=== PATIENT | female | born 1980 | race Caucasian/White ===

== ENCOUNTER 2016-10-11 04:01 | Emergency (ER) | payer MEDICAID ==
[2016-10-11] MEDS ORDERED: CEPHALEXIN 250 MG CAPSULE PO STA (04:36)
[2016-10-11] MEDS ORDERED: HYDROcod/ACET 5/325 Prepack 6 PO ONE ×2 (04:36→04:43)
[2016-10-11] MEDS ORDERED: DEXAMETHASONE 10 MG/ML VIAL PO STA (04:36)
[2016-10-11] MEDS ORDERED: ACETAMINOPHEN 325 MG TABLET PO STA (04:36)
[2016-10-11] MEDS ORDERED: CEPHALEXIN 250 MG Prepack 8 PO ONE ×2 (04:36→04:43)
[2016-10-11] MEDS ORDERED: CEPHALEXIN 250 MG CAPSULE PO ONE (04:43)
[2016-10-11] MEDS ORDERED: DEXAMETHASONE 10 MG/ML VIAL ONE (04:43)
[2016-10-11] MEDS ORDERED: ACETAMINOPHEN 325 MG TABLET PO ONE (04:44)
== END 2016-10-11 04:55 | disposition home or self-care (01) ==
DX: J02.0 Streptococcal pharyngitis (principal)
CPT/HCPCS: 99282; 99283; A9270

== ENCOUNTER 2016-10-21 | Emergency (ER) | payer MEDICAID | END 2016-10-21 17:27 | disposition home or self-care (01) ==

== ENCOUNTER 2016-11-10 | Outpatient (CLI) | payer MEDICAID | END 2016-11-10 22:31 | disposition EMS.NT ==

== ENCOUNTER 2016-11-11 14:34 | Outpatient (CLI) | payer MEDICAID | END 2016-11-11 14:35 | disposition home or self-care (01) | DX: M50.321 Other cervical disc degeneration at C4-C5 level (principal); R06.2 Wheezing ==

== ENCOUNTER 2017-03-01 09:13 | Outpatient (CLI) | payer MEDICAID | END 2017-03-01 09:14 | disposition home or self-care (01) | DX: Z79.899 Other long term (current) drug therapy (principal) ==

== ENCOUNTER 2017-03-23 15:00 | Outpatient (CLI) | payer MEDICAID ==
[2017-03-26 14:36] LABS: ANA SCREEN NEGATIVE (NEGATIVE)
== END 2017-03-23 15:01 | disposition home or self-care (01) ==
LOC: LAB.N 15:00
PROVIDERS: ATTEND Nurse Practitioner Gerontology
DX: M25.50 Pain in unspecified joint (principal)
CPT/HCPCS: 36415; 85651; 86038; 86140; 86430

== ENCOUNTER 2017-05-13 10:45 | Outpatient (CLI) | payer MEDICAID | END 2017-05-13 10:46 | disposition home or self-care (01) | LOC: LAB.N 10:45 | PROVIDERS: ATTEND Nurse Practitioner Gerontology | DX: L40.9 Psoriasis, unspecified (principal) | CPT/HCPCS: 36415; 85651; 86140 ==

== ENCOUNTER 2017-05-25 10:39 | Day surgery (SDC) | payer MEDICAID ==
[2017-05-25] MEDS ORDERED: ceFAZolin 2 GM/50 ML 50 ML IV ONE (10:54)
[2017-05-25] MEDS ORDERED: MIDAZOLAM 2 MG/2 ML VIAL IVP ONE (11:00)
[2017-05-25] MEDS ORDERED: fentaNYL 100 MCG/2 ML VIAL IVP ONE (11:00)
[2017-05-25] MEDS ORDERED: LACTATED RINGERS 1,000 ML IV ONE (11:17)
[2017-05-25 11:20] LABS: HCG UR QUAL NEGATIVE
[2017-05-25] MEDS ORDERED: LIDOCAINE MPF 1%-EPI 1:200000 30 ML VIAL SUBQ ONE ×2 (11:36)
[2017-05-25] MEDS ORDERED: BUPIVACAINE 0.5% PF 30 ML VIAL SUBQ ONE ×2 (11:36)
[2017-05-25 12:08] VITALS: BP 129/87
--- NOTE | 2017-05-25 12:13 | OPERATIVE REPORT ---
DATE OF SURGERY: 05/25/2017 00:00:00 PREOPERATIVE DIAGNOSIS: Right hand carpal tunnel syndrome. POSTOPERATIVE DIAGNOSIS: Right hand carpal tunnel syndrome. NAME OF PROCEDURE: Right carpal tunnel release. SURGEON: Luis Tena MD ANESTHESIA: Local MAC. INDICATIONS FOR SURGERY: The patient is a 36-year-old female with chronic carpal tunnel syndrome in t he right hand, with positive nerve test and nonresponse to conservative treatment rendered by Dr. Miguel ruggiero. The patient had been scheduled for surgery yesterday with Dr. Abdul, and this was unable to be accomplished and he asked me if I could care for her today, performing her carpal tunnel release, and the patient consented and I agreed as well. FINDINGS AT SURGERY: The patient's hand is normal-appearing. Her carpal tunnel was quite tight and th ere was fusiform constriction of her median nerve. DESCRIPTION OF OPERATIVE PROCEDURE: The patient was taken to the operating room, given a MAC anesthet ic. Her hand was sterilely prepped and draped in standard fashion. The carpal tunnel area was infiltr ated with lidocaine with epinephrine and Marcaine. After a period of action for the epinephrine, an incision was made in the palm in line with the 3rd w ebspace, taken through skin and subcutaneous tissue and then dividing directly the transverse carpal ligament with the release ending distally at the superficial palmar arch and ending proximally at the distal wrist flexion crease. The wound was irrigated thoroughly. Closure was with interrupted 4-0 nylon in the skin and sterile dr essings were applied. The the patient was taken to the recovery room in stable condition. ESTIMATED BLOOD LOSS: Minimal. COMPLICATIONS: None. SPONGE AND NEEDLE COUNTS: Correct. JOB #: [id number] EXT JOB #:[id number]
== END 2017-05-25 10:40 | disposition home or self-care (01) ==
LOC: SDS 10:39
PROVIDERS: ATTEND Orthopaedic Surgery
PROC: 01N50ZZ Release Median Nerve, Open Approach (ICD-10-PCS; principal; 2017-05-25 11:45)
DX: G56.01 Carpal tunnel syndrome, right upper limb (principal); J45.909 Unspecified asthma, uncomplicated; E11.9 Type 2 diabetes mellitus without complications; Z79.84 Long term (current) use of oral hypoglycemic drugs; F43.10 Post-traumatic stress disorder, unspecified; F41.0 Panic disorder [episodic paroxysmal anxiety]; F60.3 Borderline personality disorder; Z91.5 Personal history of self-harm; Z88.0 Allergy status to penicillin; K21.9 Gastro-esophageal reflux disease without esophagitis; J44.9 Chronic obstructive pulmonary disease, unspecified; F17.210 Nicotine dependence, cigarettes, uncomplicated; E66.9 Obesity, unspecified; Z68.41 Body mass index [BMI] 40.0-44.9, adult; F31.9 Bipolar disorder, unspecified; M06.9 Rheumatoid arthritis, unspecified
CPT/HCPCS: 64721; 81025; J0690; J7120

== ENCOUNTER 2017-06-29 19:30 | Emergency (ER) | payer MEDICAID ==
[2017-06-29 20:07] LABS: BASOPHILS % (AUTO) 0.2 %; HCT - HEMATOCRIT 40.4 % (37.0-47.0); HGB - HEMOGLOBIN 14.5 g/dL (12.0-16.0); LYMPHOCYTES # (AUTO) 1.6 10^3/uL (1.5-3.5); LYMPHOCYTES % (AUTO) 7.7 %; MEAN CORPUSCULAR HEMOGLOBIN 30.7 pg (27.0-31.0); MEAN CORPUSCULAR HGB CONC 35.9 g/dL (32.0-36.0); MEAN CORPUSCULAR VOLUME 85.7 fL (81.0-99.0); MEAN PLATELET VOLUME 8.1 fL (7.9-10.8); MONOCYTES # (AUTO) 0.6 10^3/uL (0.0-1.0); MONOCYTES % (AUTO) 3.1 %; NEUTROPHILS # (AUTO) 17.9 10^3/uL (1.5-6.6); RED BLOOD COUNT 4.71 10^6/uL (4.20-5.40); RED CELL DISTRIBUTION WIDTH 13.5 % (12.0-15.0); UNCORRECTED WHITE BLOOD COUNT 20.1 x10^3/uL; WHITE BLOOD COUNT 20.1 x10^3/uL (4.8-10.8)
[2017-06-29 20:20] LABS: ALBUMIN/GLOBULIN RATIO 1.1 (1.0-2.2); BILIRUBIN,TOTAL 0.6 mg/dL (0.2-1.0); CALCIUM 9.2 mg/dL (8.5-10.3); CREATININE 0.7 mg/dL (0.4-1.0); TOTAL PROTEIN 7.7 g/dL (6.7-8.2)
[2017-06-29 20:30] LABS: PLATELET MORPHOLOGY NORMAL APPEARANCE (NORMAL)
[2017-06-29 20:31] LABS: PLATELET ESTIMATE, MANUAL NORMAL (130-450,000) (NORMAL); WBC MORPHOLOGY (MULTIPLE) 2+ HYPERSEG NEUT (NORMAL)
[2017-06-29] MEDS ORDERED: INSULIN REGULAR HUMAN 100 UNIT/1 ML 10 ML MDV IVP STA (21:28)
[2017-06-29] MEDS ORDERED: ONDANSETRON 4 MG/2 ML VIAL IVP STA (21:28)
[2017-06-29] MEDS ORDERED: SODIUM CHLORIDE 0.9% 1,000 ML IV ONE (21:28)
[2017-06-29] MEDS ORDERED: cefTRIAXone 1 GM in SODIUM CHLORIDE 0.9% MINIBAG 100 ML IV STA (21:28)
--- NOTE | 2017-06-29 21:33 | ED Physician Documentation ---
PD HPI NVD - Stated complaint Stated Complaint: NAUSEA,ELEV BLOOD SUGAR - Chief complaint Chief Complaint: General - History obtained from History obtained from: Patient, Family - History of Present Illness Timing - onset: Yesterday Timing - duration: Days (1) Timing - details: Gradual onset, Still present Associated symptoms: No: Fever Contributing factors: Other (had steroid injection in left knee yesterday) Improved by: Vomiting Similar symptoms before: Has not had sx before Recently seen: Clinic - Additonal information Additional information: 36-year-old diabetic female had an injection with steroid into her left knee [facility]. Today she has experienced elevated blood sugar nausea and she has not been able to eat because her sugars continue to rise. She has had excessive urination. She does not have any pain in her left knee now. She has been having a cough congestion and now has sinus tenderness bilaterally as well. She has been on some azithromycin for otitis and this did not help. She is allergic to penicillin. She has taken Keflex before. Review of Systems Constitutional: reports: Fatigue. denies: Fever Eyes: denies: Decreased vision Ears: reports: Ear pain Nose: reports: Rhinorrhea / runny nose, Congestion, Sinus pressure / pain Throat: denies: Sore throat Cardiac: denies: Chest pain / pressure, Palpitations Respiratory: reports: Cough, Wheezing. denies: Dyspnea GI: reports: Nausea. denies: Abdominal Pain, Vomiting : denies: Dysuria, Frequency Skin: denies: Rash Musculoskeletal: denies: Neck pain, Back pain, Extremity pain, Joint pain, Joint swelling Neurologic: denies: Generalized weakness, Focal weakness, Numbness PD PAST MEDICAL HISTORY - Past Medical History Cardiovascular: None Respiratory: Asthma Neuro: None Endocrine/Autoimmune: None, Type 2 diabetes - Past Surgical History Past Surgical History: No - Present Medications Home Medications: Ambulatory Orders Medication Instructions Recorded Confirmed Albuterol 2.5 mg INH Q4H PRN 10/11/16 05/25/17 Acetaminophen [Tylenol] 650 mg PO Q6H PRN 05/21/17 05/25/17 Clobetasol Propionate/Emoll 15 gm TP DAILY PRN 05/21/17 05/25/17 [Clobetasol Emollient 0.05% Crm] Fluocinolone/Shower Cap 118.28 ml TP DAILY PRN 05/21/17 05/21/17 [Fluocinolone 0.01% Scalp Oil] Ibuprofen [Advil] 200 mg PO Q6HR PRN 05/21/17 05/21/17 Lurasidone HCl [Latuda] 60 mg PO DAILY 05/21/17 05/25/17 Medroxyprogesterone Acetate 104 mg SQ ONCE 05/21/17 05/21/17 [Depo-Subq Provera 104] Metformin HCl 1,000 mg PO BID 05/21/17 05/25/17 Zolpidem [Ambien] 5 mg PO HS 05/21/17 05/25/17 Cefuroxime Axetil [Ceftin] 500 mg PO Q12H #20 tablet 06/29/17 - Allergies Allergies/Adverse Reactions: Allergies Allergy/AdvReac Type Severity Reaction Status Date / Time Penicillins Allergy Hives Verified 10/11/16 04:12 - Social History Does the pt smoke?: Yes Smoking Status: Current every day smoker Does the pt drink ETOH?: No Does the pt have substance abuse?: No - Immunizations Immunizations are current?: Yes - POLST Patient has POLST: No PD ED PE NORMAL - Vitals Vital signs reviewed: Yes (Hypertensive) - General General: Alert and oriented X 3, No acute distress, Well developed/nourished - HEENT HEENT: Atraumatic, PERRL, EOMI, Other (There is erythema bilaterally to the TMs with flattening of the landmarks.) - Neck Neck: Supple, no meningeal sign, No bony TTP - Cardiac Cardiac: RRR, No murmur - Respiratory Respiratory: No respiratory distress, Other (Wheezes and rhonchi scattered.) - Abdomen Abdomen: Soft, Non tender - Back Back: No CVA TTP, No spinal TTP - Derm Derm: Normal color, Warm and dry, No rash - Extremities Extremities: No deformity, No tenderness to palpate, Normal ROM s pain, No edema , No calf tenderness / cord - Neuro Neuro: Alert and oriented X 3, No motor deficit, No sensory deficit, Normal speech - Psych Psych: Normal mood, Normal affect Results - Vitals Vitals: Vital Signs - 24 hr 06/29/17 06/29/17 19:39 23:19 Temperature 36.7 C 36.4 C L Heart Rate 96 92 Respiratory 17 20 Rate Blood Pressure 134/82 H 134/78 H O2 Saturation 96 95 Oxygen O2 Source Room air - Labs Labs: Laboratory Tests 06/29/17 06/29/17 06/29/17 19:44 20:02 20:02 WBC 20.1 H RBC 4.71 Hgb 14.5 Hct 40.4 MCV 85.7 MCH 30.7 MCHC 35.9 RDW 13.5 Plt Count 322 MPV 8.1 Neut # 17.9 H Lymph # 1.6 Grant # 0.6 Eos # 0.0 Baso # 0.0 Absolute Nucleated RBC 0.01 Nucleated RBCs 0.0 WBC Morphology 2+ HYPERSEG NEUT Platelet Estimate NORMAL (130-450,000) Platelet Morphology NORMAL APPEARANCE RBC Morph Micro Appear NORMAL APPEARANCE Sodium 136 Potassium 4.0 Chloride 105 Carbon Dioxide 24 Anion Gap 7.0 BUN 12 Creatinine 0.7 Estimated GFR (MDRD) 95 Glucose 252 H POC Whole Bld Glucose 252 H Calcium 9.2 Total Bilirubin 0.6 AST 15 ALT 20 Alkaline Phosphatase 66 Total Protein 7.7 Albumin 4.0 Globulin 3.7 Albumin/Globulin Ratio 1.1 Lipase 27 Urine Color Urine Clarity Urine pH Ur Specific [place] Urine Protein Urine Glucose (UA) Urine Ketones Urine Occult Blood Urine Nitrite Urine Bilirubin Urine Urobilinogen Ur Leukocyte Esterase Ur Microscopic Review Urine Culture Comments 06/29/17 06/29/17 06/29/17 21:36 22:02 23:14 WBC RBC Hgb Hct MCV MCH MCHC RDW Plt Count MPV Neut # Lymph # Grant # Eos # Baso # Absolute Nucleated RBC Nucleated RBCs WBC Morphology Platelet Estimate Platelet Morphology RBC Morph Micro Appear Sodium Potassium Chloride Carbon Dioxide Anion Gap BUN Creatinine Estimated GFR (MDRD) Glucose POC Whole Bld Glucose 183 H 146 H Calcium Total Bilirubin AST ALT Alkaline Phosphatase Total Protein Albumin Globulin Albumin/Globulin Ratio Lipase Urine Color YELLOW Urine Clarity CLEAR Urine pH 6.0 Ur Specific [place] >=1.030 H Urine Protein NEGATIVE Urine Glucose (UA) 250 H Urine Ketones NEGATIVE Urine Occult Blood NEGATIVE Urine Nitrite NEGATIVE Urine Bilirubin NEGATIVE Urine Urobilinogen 0.2 (NORMAL) Ur Leukocyte Esterase NEGATIVE Ur Microscopic Review NOT INDICATED Urine Culture Comments NOT INDICATED Procedures - IVC sono (time) 2129 Bedside IVC sono: IVC measures (cm) (1.53), IVC collapsed c insp (cm) (complete) , Dehydration PD MEDICAL DECISION MAKING - ED course Complexity details: reviewed old records, reviewed results, re-evaluated patient , considered differential, d/w patient, d/w family ED course: 36-year-old diabetic female has had a steroid injection in her knee and now has hyperglycemia and some nausea. In addition she appears to have otitis that is been chronic and she has some wheezing. Her white blood cell count was 20,000 and for this reason I have added chest x-ray into her workup. On interrogation of the inferior vena cava the patient does appear to be dehydrated. We will give her some IV saline and insulin to bring her glucose down under 200. She is improved with a glucose of 146. She is treated further with decadron and rocephin Departure - Departure Disposition: Home, Self Care Clinical Impression: Dehydration Otitis media Qualifiers: Otitis media type: suppurative Chronicity: acute Laterality: bilateral Recurrence: not specified as recurrent Spontaneous tympanic membrane rupture: without spontaneous rupture Qualified Code(s): H66.003 - Acute suppurative otitis media without spontaneous rupture of ear drum, bilateral Hyperglycemia due to type 2 diabetes mellitus Qualifiers: Diabetes mellitus jail insulin use: without technician terminal and repeater use Qualified Code(s ): E11.65 - Type 2 diabetes mellitus with hyperglycemia Condition: Stable Instructions: ED Otitis Media Acute Adult, ED Dehydration, ED Hyperglycemia Diabetic Follow-Up: Elli Wong, [employer] [Primary Care Provider] - Prescriptions: Cefuroxime Axetil [Ceftin] 500 mg PO Q12H #20 tablet Discharge Date/Time: 06/29/17 23:19
[2017-06-29 21:48] LABS: BILIRUBIN,URINE NEGATIVE (NEGATIVE)
[2017-06-29 21:51] LABS: UA CHARGE (STRIP ONLY) YES; UR CULTURE IF IND NOT INDICATED
[2017-06-29] MEDS ORDERED: ONDANSETRON 4 MG/2 ML VIAL ONE ×2 (21:51→22:09)
[2017-06-29] MEDS ORDERED: cefTRIAXone 1 GM VIAL ONE ×2 (21:51→22:09)
[2017-06-29] MEDS ORDERED: INSULIN REGULAR HUMAN 100 UNIT/1 ML 10 ML MDV ONE ×2 (21:51→22:10)
--- NOTE | 2017-06-29 22:18 | XRAY Preliminary Report ---
Exam: XR Chest 2 View PA/LAT IMPRESSION: No acute pulmonary process. [facility] SITE ID: [id number]
--- NOTE | 2017-06-29 22:55 | XRAY Report ---
EXAM: CHEST RADIOGRAPHY EXAM DATE: 06/29/2017 09:58 PM. CLINICAL HISTORY: Wheezes and rhonchi. COMPARISON: None. TECHNIQUE: 2 views. FINDINGS: Lungs/Pleura: No consolidation, effusions or pneumothorax. Possible small lateral right mid lung gran uloma. Mediastinum: Heart and mediastinal contours are unremarkable. Other: None. IMPRESSION: No acute pulmonary process. [facility] Referring Provider Line: [phone] SITE ID: [id number]
[2017-06-29 23:21] VITALS: BP 134/78
== END 2017-06-29 23:19 | disposition home or self-care (01) ==
LOC: ED 19:30
DX: E86.0 Dehydration (principal); H66.003 Acute suppurative otitis media without spontaneous rupture of ear drum, bilateral; E11.65 Type 2 diabetes mellitus with hyperglycemia; Z79.84 Long term (current) use of oral hypoglycemic drugs; J45.909 Unspecified asthma, uncomplicated; F17.200 Nicotine dependence, unspecified, uncomplicated
CPT/HCPCS: 36415; 71020; 80053; 81003; 83690; 85025; 96374; 96375; 99283; J1815; 81001; 87086

== ENCOUNTER 2017-07-12 08:00 | Outpatient (CLI) | payer MEDICAID | END 2017-07-12 08:01 | disposition home or self-care (01) | LOC: LAB.N 08:00 | PROVIDERS: ATTEND Nurse Practitioner Gerontology | DX: R19.7 Diarrhea, unspecified (principal) | CPT/HCPCS: 87493 ==

== ENCOUNTER 2017-07-12 15:27 | Outpatient (CLI) | payer MEDICAID | END 2017-07-12 15:28 | disposition home or self-care (01) | LOC: SC 15:27 | PROVIDERS: ATTEND Internal Medicine Pulmonary Disease | DX: G47.30 Sleep apnea, unspecified (principal); G47.8 Other sleep disorders; R06.83 Snoring; G47.10 Hypersomnia, unspecified | CPT/HCPCS: 99203; 99212 ==

== ENCOUNTER 2017-07-20 08:57 | Day surgery (SDC) | payer MEDICAID ==
[2017-07-20] MEDS ORDERED: LACTATED RINGERS 1,000 ML IV ONE (09:14)
[2017-07-20 09:34] LABS: HCG UR QUAL NEGATIVE
[2017-07-20] MEDS ORDERED: LIDOCAINE 1% 50 ML MDV SUBQ ONE ×2 (12:14)
[2017-07-20] MEDS ORDERED: BUPIVACAINE 0.25%-EPI 1:200000 PF 30 ML VIAL SUBQ ONE ×2 (12:14)
[2017-07-20] MEDS ORDERED: fentaNYL 100 MCG/2 ML VIAL IVP ONE (12:30)
[2017-07-20 13:14] VITALS: BP 126/72
--- NOTE | 2017-07-20 13:18 | OPERATIVE REPORT ---
DATE OF SURGERY: 07/20/2017 00:00:00 PREOPERATIVE DIAGNOSIS: Left carpal tunnel syndrome. POSTOPERATIVE DIAGNOSIS: Left carpal tunnel syndrome. NAME OF PROCEDURE: Left carpal tunnel release. SURGEON: Luis Tena MD ANESTHESIA: Local, Dr. Vince GIBSON INDICATIONS FOR SURGERY: The patient is a 36-year-old female who has bilateral carpal tunnel syndrome who has successfully undergone previous carpal tunnel release on the right hand and presents now for surgery on the left hand. Her findings are classic for carpal tunnel syndrome. DESCRIPTION OF OPERATIVE PROCEDURE: The patient was taken to the operating room, was given a MAC anes thetic and was blocked with local anesthetic into the palm and the carpal tunnel. Following a delay, the 1-1/2 inch incision was made in the palm in line with the palmar crease extending from the proxim al palm to the level of the superficial arch. The dissection was taken through skin and subcutaneous tissue, and the transverse carpal ligament was divided, extending distally to the arch and proximally to the wrist flexion crease. The contents were examined, and there was no abnormality. The area was irrigated thoroughly and closure was with 3-0 nylon in interrupted fashion. Sterile dressings were ap plied. The patient was taken to recovery room in stable condition. ESTIMATED BLOOD LOSS: Minimal. COMPLICATIONS: None. SPONGE AND NEEDLE COUNTS: Correct. JOB #: [id number] EXT JOB #:[id number]
== END 2017-07-20 08:58 | disposition home or self-care (01) ==
LOC: SDS 08:57
PROVIDERS: ATTEND Orthopaedic Surgery
PROC: 01N50ZZ Release Median Nerve, Open Approach (ICD-10-PCS; principal; 2017-07-20 10:15)
DX: G56.02 Carpal tunnel syndrome, left upper limb (principal); E11.9 Type 2 diabetes mellitus without complications; J45.909 Unspecified asthma, uncomplicated; M06.9 Rheumatoid arthritis, unspecified; Z79.84 Long term (current) use of oral hypoglycemic drugs; I10 Essential (primary) hypertension; M79.642 Pain in left hand; G89.18 Other acute postprocedural pain; G47.30 Sleep apnea, unspecified; K21.9 Gastro-esophageal reflux disease without esophagitis; F17.200 Nicotine dependence, unspecified, uncomplicated
CPT/HCPCS: 64721; 81025; 99283; J7120

== ENCOUNTER 2017-07-20 19:44 | Emergency (ER) | payer MEDICAID ==
[2017-07-20 19:55] VITALS: BP 160/98
[2017-07-20] MEDS ORDERED: oxyCODONE/ACET 5/325 Prepack 4 PO STA (21:06)
[2017-07-20] MEDS ORDERED: BUPIVACAINE 0.5%-EPI 1:200000 PF 30 ML VIAL ONE (21:07)
--- NOTE | 2017-07-20 21:08 | ED Physician Documentation ---
PD HPI UPPER EXT INJURY - Stated complaint Stated Complaint: POST OP LT HAND - Chief complaint Chief Complaint: Ext Problem - History obtained from History obtained from: Patient - History of Present Illness Location: Left (She had a left hand carpal tunnel release earlier today by Dr. Tena, pain is uncontrolled by hydrocodone.) Review of Systems Constitutional: reports: Reviewed and negative Throat: reports: Reviewed and negative Cardiac: reports: Reviewed and negative PD PAST MEDICAL HISTORY - Past Medical History Past Medical History: Yes Cardiovascular: Hypertension Respiratory: Asthma, Sleep apnea Neuro: None Endocrine/Autoimmune: None, Type 2 diabetes GI: GERD, Other Psych: Depression, Anxiety, Bipolar disorder, Panic attacks, Post traumatic stress disorder Musculoskeletal:  Derm: Psoriasis - Past Surgical History Past Surgical History: Yes Ortho: Carpal Tunnel surgery - Present Medications Home Medications: Ambulatory Orders Medication Instructions Recorded Confirmed Albuterol 2.5 mg INH Q4H PRN 10/11/16 07/20/17 Acetaminophen [Tylenol] 650 mg PO Q6H PRN 05/21/17 07/20/17 Clobetasol Propionate/Emoll 15 gm TP DAILY PRN 05/21/17 07/20/17 [Clobetasol Emollient 0.05% Crm] Medroxyprogesterone Acetate 104 mg SQ ONCE 05/21/17 07/20/17 [Depo-Subq Provera 104] Metformin HCl 1,000 mg PO BID 05/21/17 07/20/17 Zolpidem [Ambien] 5 mg PO HS 05/21/17 07/20/17 Esomeprazole Magnesium [Nexium 20 mg PO DAILY PRN 07/16/17 07/20/17 24Hr] Cefuroxime Axetil [Ceftin] 1 tab PO DAILY 07/20/17 07/20/17 - Allergies Allergies/Adverse Reactions: Allergies Allergy/AdvReac Type Severity Reaction Status Date / Time Penicillins Allergy Hives Verified 07/20/17 09:24 - Social History Does the pt smoke?: Yes Smoking Status: Current every day smoker Does the pt drink ETOH?: No Does the pt have substance abuse?: No - Immunizations Immunizations are current?: Yes - POLST Patient has POLST: No PD ED PE NORMAL - Vitals Vital signs reviewed: Yes - General General: Alert and oriented X 3, No acute distress - Extremities Extremities: Other (Left hand carpal tunnel release incision is clean dry and intact. She has limited range of motion of the hand due to pain.) - Neuro Neuro: Alert and oriented X 3, Normal speech - Psych Psych: Normal mood, Normal affect Results - Vitals Vitals: Vital Signs - 24 hr 07/20/17 19:52 Temperature 36.4 C L Heart Rate 104 H Respiratory 20 Rate Blood Pressure 160/98 H O2 Saturation 99 Oxygen O2 Source Room air Procedures - Regional nerve block Nerve block site: Median Right / left: Left Nerve block anesthesia: Marcaine 0.5% Nerve block aftercare: Excellent anesthesia, No complications PD MEDICAL DECISION MAKING - ED course ED course: Left median nerve block proximal to the wrist was done with Marcaine with epinephrine and she was given 4 Percocet to go. Departure - Departure Disposition: 01 Home, Self Care Clinical Impression: Post-operative pain Condition: Good Record reviewed to determine appropriate education?: Yes Instructions: NARCOTIC, Oral Comments: Follow-up with your surgeon as scheduled for recheck. Return if worse. Your blood pressure was elevated today on check into the emergency department. This does not mean that you have hypertension, it is a common phenomenon to come to the emergency department and have elevated blood pressure. I recommend that she see your primary care physician within the week to have it rechecked when you are feeling better.
[2017-07-20] MEDS ORDERED: oxyCODONE/ACET 5/325 Prepack 4 PO ONE (21:18)
== END 2017-07-20 21:35 | disposition home or self-care (01) ==
LOC: ED 19:44
DX: M79.642 Pain in left hand (principal); G89.18 Other acute postprocedural pain; I10 Essential (primary) hypertension; J45.909 Unspecified asthma, uncomplicated; G47.30 Sleep apnea, unspecified; E11.9 Type 2 diabetes mellitus without complications; Z79.84 Long term (current) use of oral hypoglycemic drugs; K21.9 Gastro-esophageal reflux disease without esophagitis; F17.200 Nicotine dependence, unspecified, uncomplicated
CPT/HCPCS: 64450; 99283

== ENCOUNTER 2017-09-20 17:07 | Emergency (ER) | payer MEDICAID ==
--- NOTE | 2017-09-20 17:56 | XRAY Preliminary Report ---
Exam: XR ANKLE 3 VIEW LT IMPRESSION: Mild anterior ankle soft tissue swelling. No evidence for acute fracture. Calcaneal bone spurs. [facility] SITE ID: [id number]
--- NOTE | 2017-09-20 17:59 | XRAY Report ---
EXAM: LEFT ANKLE RADIOGRAPHY EXAM DATE: 09/20/2017 05:45 PM. CLINICAL HISTORY: Pain. Ankle pain. COMPARISON: None. TECHNIQUE: 3 views. FINDINGS: Bones: Normal. No fractures or bone lesions. Joints: Normal. No effusion. No subluxations. The ankle mortise is normally aligned. Soft Tissues: Mild anterior ankle soft tissue swelling. Calcaneal bone spurs. IMPRESSION: Mild anterior ankle soft tissue swelling. No evidence for acute fracture. Calcaneal bone spurs. [facility] Referring Provider Line: [phone] SITE ID: [id number]
--- NOTE | 2017-09-20 19:16 | ED Physician Documentation ---
PD HPI LOWER EXT INJURY - Stated complaint Stated Complaint: L ANKLE INJ - Chief complaint Chief Complaint: Ext Problem - History obtained from History obtained from: Patient - History of Present Illness PD HPI LOW EXT INJURY LOCATION: Left, Ankle Type of injury: Other (thinks she twisted it, but not sure) Timing - onset: Last night Timing - duration: Days (1) Timing - details: Gradual onset Pain level max: 7 Pain level now: 3 Improved by: Rest, Ice, Immobilization Worsened by: Moving, Palpating Associated symptoms: Swelling. No: Weakness, Numbness, Tingling, Discolored Similar symptoms before: Diagnosis (ankle sprain) - Additional information Additional information: Patient is unsure of what happened with the ankle, but thinks she may have twisted it in the night. Complaining of pain to the medial aspect of the left ankle. Pain increases with walking. Review of Systems Skin: denies: Rash Neurologic: denies: Focal weakness, Numbness PD PAST MEDICAL HISTORY - Past Medical History Past Medical History: Yes Cardiovascular: Hypertension Respiratory: Asthma, Sleep apnea Neuro: None Endocrine/Autoimmune: None, Type 2 diabetes GI: GERD, Other Psych: Depression, Anxiety, Bipolar disorder, Panic attacks, Post traumatic stress disorder Musculoskeletal:  Derm: Psoriasis - Past Surgical History Past Surgical History: Yes Ortho: Carpal Tunnel surgery - Present Medications Home Medications: Ambulatory Orders Medication Instructions Recorded Confirmed Albuterol 2.5 mg INH Q4H PRN 10/11/16 09/20/17 Clobetasol Propionate/Emoll 15 gm TP DAILY PRN 05/21/17 09/20/17 [Clobetasol Emollient 0.05% Crm] Medroxyprogesterone Acetate 104 mg SQ ONCE 05/21/17 09/20/17 [Depo-Subq Provera 104] Metformin HCl 1,000 mg PO BID 05/21/17 09/20/17 Zolpidem [Ambien] 5 mg PO HS 05/21/17 09/20/17 Esomeprazole Magnesium [Nexium 20 mg PO DAILY PRN 07/16/17 09/20/17 24Hr] Diclofenac Sodium [Voltaren] 1 applic TD BID PRN 09/20/17 09/20/17 Hydrocodone/Acetaminophen 1 - 2 each PO Q6H PRN #7 tablet 09/20/17 [Hydrocodon-Acetaminophen 5-325] - Allergies Allergies/Adverse Reactions: Allergies Allergy/AdvReac Type Severity Reaction Status Date / Time Penicillins Allergy Hives Verified 07/20/17 09:24 - Social History Does the pt smoke?: Yes Smoking Status: Current every day smoker Does the pt drink ETOH?: No Does the pt have substance abuse?: No - Immunizations Immunizations are current?: Yes - POLST Patient has POLST: No PD ED PE NORMAL - Vitals Vital signs reviewed: Yes - General General: Alert and oriented X 3, No acute distress - Derm Derm: Warm and dry - Extremities Extremities: Other (TTP over the medial malleolus of the L ankle. O/w normal exam of the foot and ankle. NVI. No swelling. no erythema. ) - Neuro Neuro: Alert and oriented X 3 Results - Vitals Vitals: Vital Signs - 24 hr 09/20/17 09/20/17 17:24 19:40 Temperature 36.5 C 36.6 C Heart Rate 105 H 99 Respiratory 17 20 Rate Blood Pressure 135/86 H 134/81 H O2 Saturation 97 96 Oxygen O2 Source Room air - Rads (name of study) L ankle xray Radiology: Prelim report reviewed, EMP read contemporaneously, See rad report ( Mild anterior ankle soft tissue swelling. No evidence of acute fracture. Calcaneal bone spurs.) PD MEDICAL DECISION MAKING - ED course Complexity details: reviewed results, re-evaluated patient, considered differential (No fracture, no dislocation, no septic arthritis. Doubt gout), d/ w patient ED course: Patient is a 36-year-old female who presents to the emergency department with a left ankle injury. Does not recall exactly what happened, but thinks that she twisted in the night. No acute findings on x-ray. Placed in a gel splint and on crutches for comfort. Will continue supportive care and follow-up with her doctor. Patient counseled regarding signs and symptoms for which I believe and urgent re-evaluation would be necessary. Patient with good understanding of and agreement to plan and is comfortable going home at this time This document was made in part using voice recognition software. While efforts are made to proofread this document, sound alike and grammatical errors may occur. Departure - Departure Disposition: 01 Home, Self Care Clinical Impression: Ankle sprain Qualifiers: Encounter type: initial encounter Involved ligament of ankle: unspecified ligament Laterality: left Qualified Code(s): S93.402A - Sprain of unspecified ligament of left ankle, initial encounter Condition: Good Instructions: ED Sprain Ankle W X Ray Follow-Up: Elli Wong ARNP [Primary Care Provider] - Within 1 week Prescriptions: Hydrocodone/Acetaminophen [Hydrocodon-Acetaminophen 5-325] 1 - 2 each PO Q6H PRN #7 tablet PRN Reason: pain Comments: This should improve over the next few days. You may bear weight as tolerated. Wear the brace as needed for comfort. Follow-up with your doctor in 1 week for further evaluation and care. You can also use Motrin or Aleve as needed for pain at home. Do not drink alcohol or drive while on narcotic pain medicine. Note that many narcotic pain relievers also contain tylenol/acetaminophen. Please ensure that your total dose of acetaminophen from all sources does not exceed 3 grams (3000mg) per day. You may constipated on this medication, take a stool softener such as "Colace" twice a day while you are on it. Also recommend a [id number]-[id number] laxative such as senna or MiraLAX any day that you do not have a bowel movement. If you received narcotic pain medication in the emergency department, do not drive or operate machinery for the next 24 hours. Forms: Activity restrictions Discharge Date/Time: 09/20/17 19:40
[2017-09-20 19:42] VITALS: BP 134/81
== END 2017-09-20 19:40 | disposition home or self-care (01) ==
LOC: ED 17:07
DX: S93.402A Sprain of unspecified ligament of left ankle, initial encounter (principal); X50.0XXA Overexertion from strenuous movement or load, initial encounter; I10 Essential (primary) hypertension; J45.909 Unspecified asthma, uncomplicated; G47.30 Sleep apnea, unspecified; E11.9 Type 2 diabetes mellitus without complications; Z79.84 Long term (current) use of oral hypoglycemic drugs; K21.9 Gastro-esophageal reflux disease without esophagitis; F17.200 Nicotine dependence, unspecified, uncomplicated
CPT/HCPCS: 99283

== ENCOUNTER 2017-09-25 15:40 | Emergency (ER) | payer MEDICAID ==
--- NOTE | 2017-09-25 16:09 | ED Physician Documentation ---
PD HPI LOWER EXT INJURY - Stated complaint Stated Complaint: L ANKLE PX - Chief complaint Chief Complaint: Ext Problem - History obtained from History obtained from: Patient - History of Present Illness PD HPI LOW EXT INJURY LOCATION: Left, Ankle Type of injury: Twist Where injury occurred: Home Timing - onset: How many days ago (6) Timing - duration: Days (6) Timing - details: Abrupt onset, Still present Improved by: Rest, Immobilization Worsened by: Moving, Palpating Associated symptoms: Swelling. No: Weakness, Numbness Similar symptoms before: Diagnosis (ankle sprain) Recently seen: Emergency Dept - Additional information Additional information: 36-year-old female got out of bed at night 6 days ago and twisted her ankle. She is not sure exactly how that happened but it happened. She has pain on the medial aspect of the ankle she was seen in the emergency department an x-ray was performed and she was placed into an ankle stirrup. She continues to have some difficulty with walking and is limping and having a difficult time getting up the steps at her apartment.She has been wearing the splint 24 7. Review of Systems Constitutional: denies: Fever Eyes: denies: Decreased vision Ears: denies: Ear pain Nose: denies: Congestion Throat: denies: Sore throat Cardiac: denies: Chest pain / pressure Respiratory: denies: Cough GI: denies: Vomiting Skin: denies: Rash Musculoskeletal: reports: Joint pain, Joint swelling, Pain with weight bearing PD PAST MEDICAL HISTORY - Past Medical History Past Medical History: Yes Cardiovascular: Hypertension Respiratory: Asthma, Sleep apnea Neuro: None Endocrine/Autoimmune: None, Type 2 diabetes GI: GERD, Other Psych: Depression, Anxiety, Bipolar disorder, Panic attacks, Post traumatic stress disorder Musculoskeletal:  Derm: Psoriasis - Past Surgical History Past Surgical History: Yes Ortho: Carpal Tunnel surgery - Present Medications Home Medications: Ambulatory Orders Medication Instructions Recorded Confirmed Albuterol 2.5 mg INH Q4H PRN 10/11/16 09/20/17 Clobetasol Propionate/Emoll 15 gm TP DAILY PRN 05/21/17 09/20/17 [Clobetasol Emollient 0.05% Crm] Medroxyprogesterone Acetate 104 mg SQ ONCE 05/21/17 09/20/17 [Depo-Subq Provera 104] Metformin HCl 1,000 mg PO BID 05/21/17 09/20/17 Zolpidem [Ambien] 5 mg PO HS 05/21/17 09/20/17 Esomeprazole Magnesium [Nexium 20 mg PO DAILY PRN 07/16/17 09/20/17 24Hr] Diclofenac Sodium [Voltaren] 1 applic TD BID PRN 09/20/17 09/20/17 Hydrocodone/Acetaminophen 1 - 2 each PO Q6H PRN #7 tablet 09/20/17 [Hydrocodon-Acetaminophen 5-325] HYDROcod/ACETAM 5/325 [Emmalena 5/325] 1 - 2 ea PO Q6H PRN #10 tablet 09/25/17 - Allergies Allergies/Adverse Reactions: Allergies Allergy/AdvReac Type Severity Reaction Status Date / Time Penicillins Allergy Hives Verified 09/25/17 15:48 - Social History Does the pt smoke?: Yes Smoking Status: Current every day smoker Does the pt drink ETOH?: No Does the pt have substance abuse?: No - Immunizations Immunizations are current?: Yes - POLST Patient has POLST: No PD ED PE NORMAL - Vitals Vital signs reviewed: Yes (tachy and hypertensive ) - General General: Alert and oriented X 3, No acute distress, Well developed/nourished - HEENT HEENT: Atraumatic, PERRL, EOMI - Respiratory Respiratory: No respiratory distress - Derm Derm: Normal color, Warm and dry, No rash - Extremities Extremities: No deformity, No edema, Other (There is tenderness over the cuboid and the medial ankle There is minimal swelling and there is no tendernes to the lateral ankle or the proximal 5th. ) - Neuro Neuro: Alert and oriented X 3, No motor deficit, No sensory deficit, Normal speech Eye Opening: Spontaneous Motor: Obeys Commands Verbal: Oriented GCS Score: 15 - Psych Psych: Normal mood, Normal affect Results - Vitals Vitals: Vital Signs - 24 hr 09/25/17 15:45 Temperature 37.0 C Heart Rate 106 H Respiratory 16 Rate Blood Pressure 140/82 H O2 Saturation 97 Oxygen O2 Source Room air PD MEDICAL DECISION MAKING - ED course Complexity details: reviewed old records, reviewed results, re-evaluated patient , considered differential, d/w patient ED course: A walking boot is placed. Departure - Departure Disposition: 01 Home, Self Care Clinical Impression: Ankle sprain Qualifiers: Encounter type: subsequent encounter Involved ligament of ankle: unspecified ligament Laterality: right Qualified Code(s): S93.401D - Sprain of unspecified ligament of right ankle, subsequent encounter Condition: Stable Instructions: ED Sprain Ankle W X Ray Follow-Up: Elli Wong ARNP [Primary Care Provider] - Prescriptions: HYDROcod/ACETAM 5/325 [Emmalena 5/325] 1 - 2 ea PO Q6H PRN #10 tablet PRN Reason: Pain
[2017-09-25 16:56] VITALS: BP 133/89
== END 2017-09-25 16:53 | disposition home or self-care (01) ==
LOC: ED 15:40
DX: S93.402D Sprain of unspecified ligament of left ankle, subsequent encounter (principal); X50.1XXD Overexertion from prolonged static or awkward postures, subsequent encounter; I10 Essential (primary) hypertension; E11.9 Type 2 diabetes mellitus without complications; Z79.84 Long term (current) use of oral hypoglycemic drugs; F17.200 Nicotine dependence, unspecified, uncomplicated
CPT/HCPCS: 99283

== ENCOUNTER 2017-09-28 08:39 | Outpatient (CLI) | payer MEDICAID ==
[2017-09-28 09:05] LABS: CREATININE 0.8 mg/dL (0.4-1.0)
[2017-09-28] MEDS ORDERED: GADOBUTROL 15 MMOL/15 ML VIAL IVP ONE (10:33)
--- NOTE | 2017-09-28 14:25 | MRI Report ---
EXAM: RIGHT HAND MRI WITHOUT AND WITH CONTRAST EXAM DATE: 09/28/2017 10:44 AM. CLINICAL HISTORY: Still having right wrist/thumb pain post right carpal tunnel surgery. COMPARISON: None. TECHNIQUE: Multiplanar, multisequence T1-weighted and fluid-sensitive sequences of the hand before an d after administration of intravenous contrast. IV contrast: 13 mL of Gadavist. Other: None. FINDINGS: Bones: No fractures or subluxations. No marrow edema or abnormal enhancement. No bone lesions. Cartilage: The articular cartilage is unremarkable. Ligaments: The visualized collateral ligaments are intact. Tendons: The flexor and extensor tendons are unremarkable. Musculature: No edema or atrophy. Other: No joint effusions or synovitis. There is a defect in the flexor retinaculum anterior to the m edian nerve. The median nerve still demonstrates high T2 signal in the carpal tunnel. This may indica te ongoing inflammation. There is a 5 x 3 x 6 mm ganglion cyst in the carpal tunnel posterior to the flexor tendons, abutting the mid carpal joint. IMPRESSION: 1. Signal change in the median nerve may indicate persistent inflammation despite the visible carpal tunnel release. 2. Ganglion cyst in the carpal tunnel posterior to the flexor tendons and median nerve, which may con tribute to median nerve symptoms. [facility] Referring Provider Line: [phone] SITE ID: [id number]
== END 2017-09-28 08:40 | disposition home or self-care (01) ==
LOC: LAB 08:39
PROVIDERS: ATTEND Internal Medicine Rheumatology
DX: R93.7 Abnormal findings on diagnostic imaging of other parts of musculoskeletal system (principal); M67.431 Ganglion, right wrist; Z98.890 Other specified postprocedural states
CPT/HCPCS: 36415; 82565

== ENCOUNTER 2017-10-12 14:40 | Outpatient (CLI) | payer MEDICAID | END 2017-10-12 14:41 | LOC: LAB.R 14:40 | PROVIDERS: ATTEND Nurse Practitioner Gerontology | DX: J06.9 Acute upper respiratory infection, unspecified (principal) | CPT/HCPCS: 87275; 87276 ==

== ENCOUNTER 2017-10-12 15:16 | Outpatient (CLI) | payer MEDICAID ==
--- NOTE | 2017-10-14 11:10 | XRAY Report ---
DATE OF SERVICE: 10/12/2017 THREE VIEW LEFT FOOT: 10/12/2017 No comparison. INDICATION: Left foot pain. TECHNIQUE: Three views of the left foot. FINDINGS: Normal alignment. No evidence of acute fracture. No gross soft tissue abnormality. There are small calcaneal enthesophytes at the insertions of the plantar fascia and Achilles tendon. IMPRESSION: Mild calcaneal spurs. Negative exam otherwise. TD: 10/12/2017 22:57 [facility]
--- NOTE | 2017-10-14 11:21 | XRAY Report ---
DATE OF SERVICE: 10/12/2017 LEFT ANKLE: 10/12/2017 COMPARISON: Left ankle 09/20/2017 INDICATION: Left foot and ankle pain. TECHNIQUE: Three views of the left ankle. FINDINGS: Normal alignment. No evidence of acute fracture. There are small calcaneal spurs at the insertions of the plantar fascia and Achilles tendon. IMPRESSION: Small calcaneal spurs. Negative exam otherwise. TD: 10/12/2017 23:06 [facility]
== END 2017-10-12 15:17 | disposition home or self-care (01) ==
LOC: DI.N 15:16
PROVIDERS: ATTEND Nurse Practitioner Gerontology
DX: M77.32 Calcaneal spur, left foot (principal); J06.9 Acute upper respiratory infection, unspecified
CPT/HCPCS: 87275; 87276

== ENCOUNTER 2017-11-15 15:54 | Outpatient (CLI) | payer MEDICAID | END 2017-11-15 15:55 | disposition home or self-care (01) | LOC: SC 15:54 | PROVIDERS: ATTEND Nurse Practitioner Family | DX: G47.33 Obstructive sleep apnea (adult) (pediatric) (principal) | CPT/HCPCS: 99212; 99214 ==

== ENCOUNTER 2017-11-16 14:05 | Outpatient (CLI) | payer MEDICAID ==
[2017-11-17 13:12] LABS: HEPATITIS C ANTIBODY NON-REACTIVE (NON-REACTIVE)
== END 2017-11-16 14:06 ==
LOC: LAB.N 14:05
PROVIDERS: ATTEND Nurse Practitioner Gerontology
DX: Z20.5 Contact with and (suspected) exposure to viral hepatitis (principal)
CPT/HCPCS: 36415; 86803

== ENCOUNTER 2017-12-01 13:10 | Emergency (ER) | payer MEDICAID ==
--- NOTE | 2017-12-01 14:20 | XRAY Report ---
EXAM: CHEST RADIOGRAPHY EXAM DATE: 12/01/2017 02:08 PM. CLINICAL HISTORY: Productive cough. COMPARISON: 06/29/2017. TECHNIQUE: 2 views. FINDINGS: Lungs/Pleura: No focal opacities evident. No pleural effusion. No pneumothorax. Normal volumes. Mediastinum: Heart and mediastinal contours are unremarkable. Other: None. IMPRESSION: Normal 2-view chest radiography for age and body habitus. No significant change from sarina CARLISLE Referring Provider Line: [phone] SITE ID: [id number]
[2017-12-01] MEDS ORDERED: IPRATROPIUM/ALBUTEROL 3 ML NEB INH STA (14:27)
[2017-12-01] MEDS ORDERED: predniSONE 20 MG TABLET PO STA (14:27)
--- NOTE | 2017-12-01 14:31 | ED Physician Documentation ---
PD HPI URI - Stated complaint Stated Complaint: DIFF BREATHING - Chief complaint Chief Complaint: Resp - History obtained from History obtained from: Patient - History of Present Illness Timing - onset: Yesterday Timing duration: Days (2) Timing details: Gradual onset Pain level max: 4 Pain level now: 4 Associated symptoms: Fever (subjective), Nasal congestion, Rhinorrhea, Dry cough , Dyspnea (wheezing) Contributing factors: Sick contact, COPD / asthma (uses inhalers at home) Improves by: MDI/nebulizer (nebulizer helped this am) Worsened by: Activity, Breathing Similar symptoms before: Diagnosis (URI) Recently seen: Not recently seen Review of Systems Nose: reports: Rhinorrhea / runny nose, Congestion Cardiac: denies: Chest pain / pressure Respiratory: reports: Dyspnea, Cough, Wheezing. denies: Hemoptysis GI: denies: Abdominal Pain, Nausea, Vomiting, Diarrhea : denies: Dysuria, Now EGA Skin: denies: Rash Musculoskeletal: denies: Neck pain, Back pain Neurologic: denies: Headache PD PAST MEDICAL HISTORY - Past Medical History Past Medical History: Yes Cardiovascular: Hypertension Respiratory: Asthma, Sleep apnea Neuro: None Endocrine/Autoimmune: None, Type 2 diabetes GI: GERD, Other Psych: Depression, Anxiety, Bipolar disorder, Panic attacks, Post traumatic stress disorder Musculoskeletal:  Derm: Psoriasis - Past Surgical History Past Surgical History: Yes Ortho: Carpal Tunnel surgery - Present Medications Home Medications: Ambulatory Orders Medication Instructions Recorded Confirmed Albuterol 2.5 mg INH Q4H PRN 10/11/16 09/20/17 Clobetasol Propionate/Emoll 15 gm TP DAILY PRN 05/21/17 09/20/17 [Clobetasol Emollient 0.05% Crm] Medroxyprogesterone Acetate 104 mg SQ ONCE 05/21/17 09/20/17 [Depo-Subq Provera 104] Metformin HCl 1,000 mg PO BID 05/21/17 09/20/17 Zolpidem [Ambien] 5 mg PO HS 05/21/17 09/20/17 Esomeprazole Magnesium [Nexium 20 mg PO DAILY PRN 07/16/17 09/20/17 24Hr] Diclofenac Sodium [Voltaren] 1 applic TD BID PRN 09/20/17 09/20/17 Hydrocodone/Acetaminophen 1 - 2 each PO Q6H PRN #7 tablet 09/20/17 [Hydrocodon-Acetaminophen 5-325] Albuterol Sulf [Ventolin Hfa 1 - 2 puffs INH Q4HR PRN #1 inhaler 12/01/17 Inhaler] predniSONE [Prednisone] 40 mg PO DAILY #10 tablet 12/01/17 - Allergies Allergies/Adverse Reactions: Allergies Allergy/AdvReac Type Severity Reaction Status Date / Time Penicillins Allergy Hives Verified 12/01/17 13:19 - Social History Does the pt smoke?: Yes Smoking Status: Current every day smoker Does the pt drink ETOH?: No Does the pt have substance abuse?: No - Immunizations Immunizations are current?: Yes - POLST Patient has POLST: No PD ED PE NORMAL - Vitals Vital signs reviewed: Yes - General General: Alert and oriented X 3, No acute distress - HEENT HEENT: Ears normal, Moist mucous membranes, Pharynx benign - Neck Neck: Supple, no meningeal sign, No adenopathy - Cardiac Cardiac: RRR - Respiratory Respiratory: No respiratory distress, Other (Diminished breath sounds bilaterally with wheezing) - Abdomen Abdomen: Soft, Non tender, Non distended - Derm Derm: Warm and dry - Extremities Extremities: No calf tenderness / cord - Neuro Neuro: Alert and oriented X 3 - Psych Psych: Normal mood, Normal affect Results - Vitals Vitals: Vital Signs - 24 hr 12/01/17 12/01/17 12/01/17 13:16 14:50 15:17 Temperature 36.5 C Heart Rate 104 H 86 94 Respiratory 22 18 16 Rate Blood Pressure 172/99 H 170/98 H O2 Saturation 97 98 Oxygen O2 Source Room air - Rads (name of study) cxr Radiology: Prelim report reviewed, EMP read contemporaneously, See rad report ( normal) PD MEDICAL DECISION MAKING - ED course Complexity details: reviewed old records, reviewed results, re-evaluated patient , considered differential, d/w patient ED course: Patient appears to have a viral upper respiratory infection. No acute findings on chest x-ray. Feels better after nebulizer treatment here. Will place on steroids for home as well as continue albuterol. She is well-appearing, nontoxic. Speaking in full sentences. No hypoxia or respiratory distress. Patient counseled regarding signs and symptoms for which I believe and urgent re -evaluation would be necessary. Patient with good understanding of and agreement to plan and is comfortable going home at this time This document was made in part using voice recognition software. While efforts are made to proofread this document, sound alike and grammatical errors may occur. Departure - Departure Disposition: 01 Home, Self Care Clinical Impression: Viral URI Condition: Good Instructions: ED URI Viral W Wheezing Follow-Up: Elli Wong ARNP [Primary Care Provider] - Within 1 week Prescriptions: Albuterol Sulf [Ventolin Hfa Inhaler] 1 - 2 puffs INH Q4HR PRN #1 inhaler PRN Reason: Shortness Of Air/Wheezing predniSONE [Prednisone] 40 mg PO DAILY #10 tablet Comments: Return if you worsen. Drink plenty of fluids and rest. Forms: Activity restrictions Discharge Date/Time: 12/01/17 15:20
[2017-12-01] MEDS ORDERED: IPRATROPIUM/ALBUTEROL 3 ML NEB INH SCH (15:00)
[2017-12-01 15:19] VITALS: BP 170/98
== END 2017-12-01 15:20 | disposition home or self-care (01) ==
LOC: ED 13:10
DX: J06.9 Acute upper respiratory infection, unspecified (principal); J45.909 Unspecified asthma, uncomplicated; F17.200 Nicotine dependence, unspecified, uncomplicated; I10 Essential (primary) hypertension; G47.30 Sleep apnea, unspecified; E11.9 Type 2 diabetes mellitus without complications; Z79.84 Long term (current) use of oral hypoglycemic drugs
CPT/HCPCS: 71046; 94640; 99283; J7512; J7620

== ENCOUNTER 2017-12-02 14:31 | Outpatient (CLI) | payer MEDICAID | END 2017-12-02 14:32 | disposition home or self-care (01) | LOC: SC 14:31 | PROVIDERS: ATTEND Nurse Practitioner Family | DX: G47.33 Obstructive sleep apnea (adult) (pediatric) (principal) | CPT/HCPCS: 99212; 99214 ==

== ENCOUNTER 2017-12-04 18:18 | Emergency (ER) | payer MEDICAID ==
[2017-12-04] MEDS ORDERED: IPRATROPIUM/ALBUTEROL 3 ML NEB INH STA (18:46)
[2017-12-04] MEDS ORDERED: DEXAMETHASONE 10 MG/ML VIAL PO STA (18:50)
--- NOTE | 2017-12-04 18:52 | ED Physician Documentation ---
PD HPI CHEST PAIN - Stated complaint Stated Complaint: DIFF BREATHING/CHEST PX - Chief complaint Chief Complaint: Resp - History obtained from History obtained from: Patient - History of Present Illness Timing - onset: Other (37-year-old woman with history of asthma and also concerning history for early onset coronary disease in her family presents with 4 days of substernal chest pain which is nonradiating associated with cough and wheezing and shortness of breath. She was seen here a few days ago and started on prednisone which has not helped too much. She also needs a work note.) Review of Systems Constitutional: denies: Fever, Chills Nose: reports: Rhinorrhea / runny nose Throat: denies: Sore throat Cardiac: reports: Chest pain / pressure. denies: Palpitations, Pedal edema, Calf pain Respiratory: reports: Dyspnea, Cough PD PAST MEDICAL HISTORY - Past Medical History Cardiovascular: Hypertension Respiratory: Asthma, Sleep apnea Neuro: None Endocrine/Autoimmune: None, Type 2 diabetes GI: GERD, Other Psych: Depression, Anxiety, Bipolar disorder, Panic attacks, Post traumatic stress disorder Musculoskeletal:  Derm: Psoriasis - Past Surgical History Past Surgical History: Yes Ortho: Carpal Tunnel surgery - Present Medications Home Medications: Ambulatory Orders Medication Instructions Recorded Confirmed Albuterol 2.5 mg INH Q4H PRN 10/11/16 09/20/17 Clobetasol Propionate/Emoll 15 gm TP DAILY PRN 05/21/17 09/20/17 [Clobetasol Emollient 0.05% Crm] Medroxyprogesterone Acetate 104 mg SQ ONCE 05/21/17 09/20/17 [Depo-Subq Provera 104] Metformin HCl 1,000 mg PO BID 05/21/17 09/20/17 Zolpidem [Ambien] 5 mg PO HS 05/21/17 09/20/17 Esomeprazole Magnesium [Nexium 20 mg PO DAILY PRN 07/16/17 09/20/17 24Hr] Diclofenac Sodium [Voltaren] 1 applic TD BID PRN 09/20/17 09/20/17 Hydrocodone/Acetaminophen 1 - 2 each PO Q6H PRN #7 tablet 09/20/17 [Hydrocodon-Acetaminophen 5-325] Albuterol Sulf [Ventolin Hfa 1 - 2 puffs INH Q4HR PRN #1 inhaler 12/01/17 Inhaler] predniSONE [Prednisone] 40 mg PO DAILY #10 tablet 12/01/17 Fluticasone/Salmeterol [Advair 1 each IH BID #1 blst.w.dev 12/04/17 500-50 Diskus] Ipratropium/Albuterol [Duoneb] 3 ml INH Q6H #1 unit 12/04/17 Nebulizer [Aeroneb Go Nebulizer] 1 each MC ONCE #1 each 12/04/17 - Allergies Allergies/Adverse Reactions: Allergies Allergy/AdvReac Type Severity Reaction Status Date / Time Penicillins Allergy Hives Verified 12/04/17 18:28 - Social History Does the pt smoke?: Yes Smoking Status: Current every day smoker Does the pt drink ETOH?: No Does the pt have substance abuse?: No - Immunizations Immunizations are current?: Yes - POLST Patient has POLST: No PD ED PE NORMAL - Vitals Vital signs reviewed: Yes - General General: Alert and oriented X 3, No acute distress - HEENT HEENT: Pharynx benign - Neck Neck: Supple, no meningeal sign, No bony TTP - Cardiac Cardiac: RRR, No murmur - Respiratory Respiratory: Other (Slightly breathless and tachypneic, somewhat diminished throughout with expiratory wheezes but decent air motion.) - Abdomen Abdomen: Non tender - Extremities Extremities: No edema, No calf tenderness / cord - Neuro Neuro: Alert and oriented X 3, Normal speech - Psych Psych: Normal mood, Normal affect Results - Vitals Vitals: Vital Signs - 24 hr 12/04/17 12/04/17 12/04/17 18:22 18:45 21:03 Temperature 36.6 C Heart Rate 99 97 96 Respiratory 26 H 21 19 Rate Blood Pressure 144/79 H 121/74 O2 Saturation 98 98 Oxygen O2 Source Room air - EKG (time done) 1825 Rate: Rate (enter#) (102) Rhythm: NSR [place]: Normal Intervals: Normal [place] QRS: Normal Ischemia: Normal ST segments Computer interpretation: Agree with computer - Labs Labs: Laboratory Tests 12/04/17 12/04/17 12/04/17 19:07 19:07 19:07 WBC 13.7 H RBC 4.91 Hgb 14.0 Hct 43.1 MCV 87.8 MCH 28.5 MCHC 32.4 RDW 13.3 Plt Count 338 MPV 8.2 Neut # 12.0 H Lymph # 1.3 L [place] # 0.3 Eos # 0.0 Baso # 0.0 Absolute Nucleated RBC 0.00 Nucleated RBC % 0.0 D-Dimer 413.6 H Sodium Potassium Chloride Carbon Dioxide Anion Gap BUN Creatinine Estimated GFR (MDRD) Glucose Calcium Total Bilirubin AST ALT Alkaline Phosphatase Troponin I < 0.04 Total Protein Albumin Globulin Albumin/Globulin Ratio Lipase Urine Color Urine Clarity Urine pH Ur Specific [place] Urine Protein Urine Glucose (UA) Urine Ketones Urine Occult Blood Urine Nitrite Urine Bilirubin Urine Urobilinogen Ur Leukocyte Esterase Ur Microscopic Review Urine Culture Comments Urine HCG, Qual 12/04/17 12/04/17 19:07 19:53 WBC RBC Hgb Hct MCV MCH MCHC RDW Plt Count MPV Neut # Lymph # [place] # Eos # Baso # Absolute Nucleated RBC Nucleated RBC % D-Dimer Sodium 132 L Potassium 3.5 Chloride 100 L Carbon Dioxide 21 Anion Gap 11.0 BUN 19 Creatinine 0.9 Estimated GFR (MDRD) 70 L Glucose 433 H Calcium 8.8 Total Bilirubin 0.3 AST 28 ALT 28 Alkaline Phosphatase 74 Troponin I Total Protein 7.4 Albumin 3.9 Globulin 3.5 Albumin/Globulin Ratio 1.1 Lipase 33 Urine Color YELLOW Urine Clarity CLEAR Urine pH 6.5 Ur Specific [place] <=1.005 Urine Protein NEGATIVE Urine Glucose (UA) >=1000 H Urine Ketones NEGATIVE Urine Occult Blood NEGATIVE Urine Nitrite NEGATIVE Urine Bilirubin NEGATIVE Urine Urobilinogen 0.2 (NORMAL) Ur Leukocyte Esterase NEGATIVE Ur Microscopic Review NOT INDICATED Urine Culture Comments NOT INDICATED Urine HCG, Qual NEGATIVE - Rads (name of study) CT PA Radiology: EMP read contemporaneously (NAD, no PE or PNA) PD MEDICAL DECISION MAKING - ED course ED course: 37-year-old woman with history of asthma and tobacco abuse as well as morbid obesity presents with continued asthma symptoms after being on steroids for a few days. EKG is normal, d-dimer high and at this point other labs were done which were notable for a blood sugar of 433 which is likely a combination of illness and being on steroids for the underlying wheezing. She was administered IV fluids and divided doses of insulin. CT pulmonary angiogram was negative and she felt better after a DuoNeb here. Departure - Departure Disposition: 01 Home, Self Care Clinical Impression: Asthma Qualifiers: Asthma severity: moderate Asthma persistence: persistent Asthma complication type: with acute exacerbation Qualified Code(s): J45.41 - Moderate persistent asthma with (acute) exacerbation Dyspnea Qualifiers: Dyspnea type: shortness of breath Qualified Code(s): R06.02 - Shortness of breath; R06.00 - Dyspnea, unspecified; R06.01 - Orthopnea Condition: Good Record reviewed to determine appropriate education?: Yes Instructions: Asthma Dc, ED Smoking Cessation Prescriptions: Fluticasone/Salmeterol [Advair 500-50 Diskus] 1 each IH BID #1 blst.w.dev Ipratropium/Albuterol [Duoneb] 3 ml INH Q6H #1 unit Nebulizer [Aeroneb Go Nebulizer] 1 each MC ONCE #1 each Comments: Call your doctor to arrange a follow-up appointment, make the next available appointment. In the interim, return anytime if worse or if new symptoms develop. Forms: Activity restrictions
[2017-12-04] MEDS ORDERED: IBUPROFEN 800 MG TABLET PO STA (19:26)
[2017-12-04] MEDS ORDERED: CHERRY SYRUP 10 ML UDC PO ONE (19:28)
[2017-12-04 19:52] LABS: BASOPHILS % (AUTO) 0.2 %; LYMPHOCYTES # (AUTO) 1.3 10^3/uL (1.5-3.5); LYMPHOCYTES % (AUTO) 9.6 %; MEAN CORPUSCULAR HEMOGLOBIN 28.5 pg (27.0-31.0); MEAN CORPUSCULAR HGB CONC 32.4 g/dL (32.0-36.0); MEAN CORPUSCULAR VOLUME 87.8 fL (81.0-99.0); MEAN PLATELET VOLUME 8.2 fL (7.9-10.8); MONOCYTES # (AUTO) 0.3 10^3/uL (0.0-1.0); MONOCYTES % (AUTO) 2.4 %; NEUTROPHILS % (AUTO) 87.8 %; PLT - PLATELET COUNT 338 10^3/uL (130-450); RED BLOOD COUNT 4.91 10^6/uL (4.20-5.40); RED CELL DISTRIBUTION WIDTH 13.3 % (12.0-15.0); WHITE BLOOD COUNT 13.7 x10^3/uL (4.8-10.8)
[2017-12-04 19:56] LABS: ALBUMIN 3.9 g/dL (3.2-5.5); ALBUMIN/GLOBULIN RATIO 1.1 (1.0-2.2); BILIRUBIN,TOTAL 0.3 mg/dL (0.2-1.0); CALCIUM 8.8 mg/dL (8.5-10.3); CREATININE 0.9 mg/dL (0.4-1.0); TOTAL PROTEIN 7.4 g/dL (6.7-8.2)
[2017-12-04 19:57] LABS: BILIRUBIN,URINE NEGATIVE (NEGATIVE); GLUCOSE, URINE (UA) >=1000 mg/dL (NEGATIVE); KETONES,URINE (UA) NEGATIVE (NEGATIVE); LEUKOCYTE ESTERASE, URINE NEGATIVE (NEGATIVE); NITRITE,URINE NEGATIVE (NEGATIVE); OCCULT BLOOD,URINE NEGATIVE (NEGATIVE); PH,URINE 6.5 PH (5.0-7.5); PROTEIN,URINE NEGATIVE (NEGATIVE); UROBILINOGEN,URINE 0.2 (NORMAL) E.U./dL (NORMAL)
[2017-12-04 20:02] LABS: CLARITY,URINE CLEAR (CLEAR); HCG UR QUAL NEGATIVE
[2017-12-04] MEDS ORDERED: INSULIN NPH HUMAN 100 UNIT/1 ML 10 ML MDV SUBQ STA (20:04)
[2017-12-04] MEDS ORDERED: SODIUM CHLORIDE 0.9% 1,000 ML IV ONE (20:06)
[2017-12-04] MEDS ORDERED: IOPAMIDOL-300 100 ML VIAL ONE (20:14)
[2017-12-04] MEDS ORDERED: IOPAMIDOL-300 100 ML VIAL IVP ONE (20:42)
--- NOTE | 2017-12-04 21:17 | CT Report ---
EXAM: CT ANGIOGRAM CHEST EXAM DATE: 12/04/2017 08:45 PM. CLINICAL HISTORY: Dyspnea. COMPARISON: None. TECHNIQUE: Routine helical imaging was performed through the chest in the pulmonary arterial phase. I V Contrast: 80 cc of Omnipaque 350. Reconstructions: Coronal 3-D MIP reconstructions.Sagittal and cor onal. In accordance with CT protocol optimization, one or more of the following dose reduction techniques w ere utilized for this exam: automated exposure control, adjustment of mA and/or KV based on patient s ize, or use of iterative reconstructive technique. FINDINGS: Pulmonary Arteries: Diagnostic quality: Adequate through the segmental arteries. No evidence for acute or chronic pulmona ry emboli. RV/LV is within normal limits. There is no interventricular septal bowing. There is no reflux of cont rast material in the IVC. Lungs/Pleura: No consolidation, nodules, or edema. No effusions or pneumothorax. Mediastinum: There is borderline cardiomegaly. No enlarged thoracic lymph nodes. Thoracic Aorta: Unremarkable. Upper Abdomen: Unremarkable. Other: None. IMPRESSION: Negative pulmonary CT angiogram. No pulmonary emboli. [facility] Referring Provider Line: [phone] SITE ID: [id number]
[2017-12-04] MEDS ORDERED: INSULIN REGULAR HUMAN 100 UNIT/1 ML 10 ML MDV IVP STA (21:25)
[2017-12-04 22:01] VITALS: BP 133/66
== END 2017-12-04 22:01 | disposition home or self-care (01) ==
LOC: ED 18:18
DX: J45.41 Moderate persistent asthma with (acute) exacerbation (principal); R07.2 Precordial pain; G47.30 Sleep apnea, unspecified; I10 Essential (primary) hypertension; F17.200 Nicotine dependence, unspecified, uncomplicated; E66.01 Morbid (severe) obesity due to excess calories; E11.65 Type 2 diabetes mellitus with hyperglycemia; Z79.84 Long term (current) use of oral hypoglycemic drugs; Z79.52 Long term (current) use of systemic steroids
CPT/HCPCS: 36415; 71275; 80053; 81003; 81025; 83690; 84484; 85025; 85379; 93005; 94640; 96360; 99283; A9270; J1815; J7620; Q9967; 81001; 87086

== ENCOUNTER 2017-12-05 23:27 | Outpatient (CLI) | payer MEDICAID | END 2017-12-05 23:28 | disposition critical access hospital (66) | LOC: EMS 23:27 | PROVIDERS: ATTEND Surgery | DX: R73.09 Other abnormal glucose (principal) | CPT/HCPCS: A0425; A0429 ==

== ENCOUNTER 2017-12-05 23:43 | Emergency (ER) | payer MEDICAID ==
--- NOTE | 2017-12-06 | ED Physician Documentation ---
History of Present Illness - Stated complaint Stated Complaint: High Blood Sugar - Chief complaint Chief Complaint: General - History obtained from History obtained from: Patient - History of Present Illness Timing: Yesterday Pain level now: 0 - Additonal information Additional information: T+R from this ED yesterday for dyspnea and chest pain; w/u included CT chest with contrast and thus she was told to hold her metformin x 3 days. Her initial blood tests revealed blood sugar 433 but decreased to 379 with fluids and insulin. Tonight, patient felt her face was flushed and swollen, which she says is how she feels when her blood sugar is high. She thus checked her blood sugar and found it to be 425, and thus she called 911. En route without intervention, EMS found blood sugar fingerstick to be 385. She does not have chest pain or shortness of breath on presentation, and only mild polydipsia and polyuria Review of Systems Constitutional: denies: Fever, Chills, Sweats Cardiac: denies: Chest pain / pressure, Palpitations Respiratory: denies: Dyspnea, Cough GI: denies: Abdominal Pain, Nausea, Vomiting : denies: Dysuria Endocrine: reports: Polydypsia (mild), Polyuria (mild) PD PAST MEDICAL HISTORY - Past Medical History Past Medical History: Yes Cardiovascular: Hypertension Respiratory: Asthma, Sleep apnea Neuro: None Endocrine/Autoimmune: None, Type 2 diabetes GI: GERD, Other Psych: Depression, Anxiety, Bipolar disorder, Panic attacks, Post traumatic stress disorder Musculoskeletal:  Derm: Psoriasis - Past Surgical History Past Surgical History: Yes Ortho: Carpal Tunnel surgery - Present Medications Home Medications: Ambulatory Orders Medication Instructions Recorded Confirmed Albuterol 2.5 mg INH Q4H PRN 10/11/16 09/20/17 Clobetasol Propionate/Emoll 15 gm TP DAILY PRN 05/21/17 09/20/17 [Clobetasol Emollient 0.05% Crm] Medroxyprogesterone Acetate 104 mg SQ ONCE 05/21/17 09/20/17 [Depo-Subq Provera 104] Metformin HCl 1,000 mg PO BID 05/21/17 09/20/17 Zolpidem [Ambien] 5 mg PO HS 05/21/17 09/20/17 Esomeprazole Magnesium [Nexium 20 mg PO DAILY PRN 07/16/17 09/20/17 24Hr] Diclofenac Sodium [Voltaren] 1 applic TD BID PRN 09/20/17 09/20/17 Albuterol Sulf [Ventolin Hfa 1 - 2 puffs INH Q4HR PRN #1 inhaler 12/01/17 Inhaler] Fluticasone/Salmeterol [Advair 1 each IH BID #1 blst.w.dev 12/04/17 500-50 Diskus] Ipratropium/Albuterol [Duoneb] 3 ml INH Q6H #1 unit 12/04/17 Nebulizer [Aeroneb Go Nebulizer] 1 each MC ONCE #1 each 12/04/17 - Allergies Allergies/Adverse Reactions: Allergies Allergy/AdvReac Type Severity Reaction Status Date / Time Penicillins Allergy Hives Verified 12/05/17 23:47 - Social History Does the pt smoke?: Yes Smoking Status: Current every day smoker Does the pt drink ETOH?: No Does the pt have substance abuse?: Yes Substance Use and Type: Marijuana - Immunizations Immunizations are current?: Yes - POLST Patient has POLST: No PD ED PE NORMAL - Vitals Vital signs reviewed: Yes - General General: Alert and oriented X 3, No acute distress, Well developed/nourished - HEENT HEENT: Moist mucous membranes - Neck Neck: Supple, no meningeal sign - Cardiac Cardiac: RRR, No murmur - Respiratory Respiratory: No respiratory distress, Clear bilaterally - Abdomen Abdomen: Soft, Non tender Results - Vitals Vitals: Vital Signs - 24 hr 12/05/17 12/06/17 12/06/17 23:44 01:58 04:00 Temperature 37.2 C 36.2 C L 37.0 C Heart Rate 88 88 86 Respiratory 18 24 18 Rate Blood Pressure 171/93 H 149/94 H 146/97 H O2 Saturation 97 97 98 Oxygen O2 Source Room air - Labs Labs: Laboratory Tests 12/05/17 23:55 Serum Ketones NEGATIVE PD MEDICAL DECISION MAKING - ED course Complexity details: reviewed old records, reviewed results, re-evaluated patient , considered differential, d/w patient ED course: Given IV NS 1 liter bolus, serum ketones negative. She had fingerstick checks in ED of 389 (shortly after arrival), followed by 296 (after fluids). She has no signs/symptoms attributable to high blood sugar and thus will be discharged. Given 4 units SQ regular insulin and prior to discharge fingerstick again checked, result 275 Departure - Departure Disposition: 01 Home, Self Care Clinical Impression: Hyperglycemia due to type 2 diabetes mellitus Qualifiers: Diabetes mellitus long chain beamer insulin use: without retirement use Qualified Code(s ): E11.65 - Type 2 diabetes mellitus with hyperglycemia Condition: Good Instructions: ED Hyperglycemia Diabetic Discharge Date/Time: 12/06/17 04:03
[2017-12-06] MEDS ORDERED: SODIUM CHLORIDE 0.9% 1,000 ML IV STA (00:39)
[2017-12-06] MEDS ORDERED: INSULIN REGULAR HUMAN 100 UNIT/1 ML 10 ML MDV SUBQ STA (03:16)
[2017-12-06 04:02] VITALS: BP 146/97
== END 2017-12-06 04:03 | disposition home or self-care (01) ==
LOC: EDUNIT# → SUPCPDRO 23:43 → ED 23:43
DX: E11.65 Type 2 diabetes mellitus with hyperglycemia (principal); I10 Essential (primary) hypertension; F17.200 Nicotine dependence, unspecified, uncomplicated; Z79.84 Long term (current) use of oral hypoglycemic drugs
CPT/HCPCS: 36415; 82009; 96360; 96361; 99284; J1815

== ENCOUNTER 2017-12-15 13:30 | Outpatient (CLI) | payer MEDICAID ==
--- NOTE | 2017-12-15 17:26 | Mammography Report ---
DIGITAL DIAGNOSTIC BILATERAL MAMMOGRAM: 12/15/2017 CLINICAL INDICATION: A 37-year-old nulliparous patient with bilateral breast pain, history of bilateral nipple discharge. TECHNIQUE: Bilateral CC, MLO, true lateral, spot magnification views. This is the patient's baseline examination. FINDINGS: The breasts demonstrate fatty replacement bilaterally. No suspicious masses, clustered microcalcifications, or regions of architectural distortion are identified. IMPRESSION: NEGATIVE EXAMINATION. RECOMMENDATION: ROUTINE ANNUAL SCREENING, TO COMMENCE AT AGE 40, UNLESS OTHERWISE CLINICALLY INDICATED. BIRADS category: 1, negative. STANDARD QUALIFYING STATEMENTS 1. This examination was reviewed with the aid of Computed-Aided Detection (CAD). 2. A negative or benign imaging report should not delay biopsy if clinically suspicious findings are present. Consider surgical consultation if warranted. More than 5% of cancers are not identified by imaging. 3. Dense breasts may obscure an underlying neoplasm. TD: 12/15/2017 17:25
== END 2017-12-15 13:31 | disposition home or self-care (01) ==
LOC: DI 13:30
PROVIDERS: ATTEND Nurse Practitioner Gerontology
DX: N64.4 Mastodynia (principal)
CPT/HCPCS: 77066

== ENCOUNTER 2018-02-09 15:07 | Outpatient (CLI) | payer MEDICAID | END 2018-02-09 15:08 | disposition home or self-care (01) | LOC: SC 15:07 | PROVIDERS: ATTEND Nurse Practitioner Family | DX: G47.33 Obstructive sleep apnea (adult) (pediatric) (principal); G47.26 Circadian rhythm sleep disorder, shift work type | CPT/HCPCS: 99212; 99214 ==

== ENCOUNTER 2018-04-19 12:15 | Emergency (ER) | payer MEDICAID ==
[2018-04-19] MEDS ORDERED: SODIUM CHLORIDE 0.9% 1,000 ML IV ONE ×2 (12:39→13:24)
[2018-04-19 13:08] LABS: VBG PCO2 32.6 mmHg (41-51); VBG PH 7.464 (7.31-7.41); VBG PO2 77.4 mmHg (25-47); VBG TOTAL CO2 23.9 mmol/L (24-29)
[2018-04-19 13:17] LABS: BASOPHILS # (AUTO) 0.1 10^3/uL (0.0-0.1); BASOPHILS % (AUTO) 0.8 %; EOSINOPHILS # (AUTO) 0.5 10^3/uL (0.0-0.7); LYMPHOCYTES # (AUTO) 2.4 10^3/uL (1.5-3.5); LYMPHOCYTES % (AUTO) 19.1 %; MEAN CORPUSCULAR HEMOGLOBIN 30.3 pg (27.0-31.0); MEAN CORPUSCULAR HGB CONC 34.1 g/dL (32.0-36.0); MEAN CORPUSCULAR VOLUME 88.9 fL (81.0-99.0); MEAN PLATELET VOLUME 8.6 fL (7.9-10.8); MONOCYTES # (AUTO) 0.7 10^3/uL (0.0-1.0); MONOCYTES % (AUTO) 5.4 %; NEUTROPHILS # (AUTO) 8.8 10^3/uL (1.5-6.6); NEUTROPHILS % (AUTO) 70.7 %; PLT - PLATELET COUNT 287 10^3/uL (130-450); RED BLOOD COUNT 4.94 10^6/uL (4.20-5.40); RED CELL DISTRIBUTION WIDTH 13.4 % (12.0-15.0); WHITE BLOOD COUNT 12.4 x10^3/uL (4.8-10.8)
[2018-04-19 13:19] LABS: KETONES, SERUM (ACETEST) NEGATIVE (NEGATIVE)
[2018-04-19 13:22] LABS: ALBUMIN 3.6 g/dL (3.2-5.5); ALBUMIN/GLOBULIN RATIO 1.1 (1.0-2.2); ALKALINE PHOSPHATASE 85 IU/L (42-121); ALT ALANINE AMINOTRANSFERASE 38 IU/L (10-60); AST ASPARTATE AMINOTRANSFERASE 35 IU/L (10-42); BILIRUBIN,TOTAL 0.5 mg/dL (0.2-1.0); BUN - BLOOD UREA NITROGEN 8 mg/dL (6-20); CALCIUM 8.7 mg/dL (8.5-10.3); CARBON DIOXIDE - CO2 22 mmol/L (21-32); CHLORIDE 99 mmol/L (101-111); CREATININE 0.6 mg/dL (0.4-1.0); GFR - MDRD 112 (>89); GLUCOSE 309 mg/dL (70-100); LIPASE 40 U/L (22-51); MAGNESIUM 1.6 mg/dL (1.7-2.8); PHOSPHORUS 3.4 mg/dL (2.5-4.6); SODIUM 131 mmol/L (135-145)
--- NOTE | 2018-04-19 14:46 | ED Physician Documentation ---
History of Present Illness - Stated complaint Stated Complaint: HIGH GLUCOSE/CHOLESTEROL - Chief complaint Chief Complaint: General - History obtained from History obtained from: Patient, Friend - History of Present Illness Timing: Today - Additonal information Additional information: Patient is a 37 year old female with a history of type 2 diabetes who is presenting to the emergency department for elevated blood glucose. Patient states that she had blood work done with her primary. Patient got a phone call and her doctor told her her blood sugar was over 400 and that the patient either needed to come to an ER or follow up with her doctor. patient is unable to get in to see her primary so she came to the emergency department. patient denies any acute complaints. Review of Systems Constitutional: denies: Fever, Chills Eyes: reports: Decreased vision. denies: Photophobia Ears: reports: Reviewed and negative Cardiac: denies: Chest pain / pressure, Palpitations Respiratory: denies: Dyspnea, Cough, Wheezing GI: denies: Nausea, Vomiting : reports: Frequency Endocrine: reports: Polydypsia, Polyuria PD PAST MEDICAL HISTORY - Past Medical History Cardiovascular: Hypertension Respiratory: Asthma, Sleep apnea Endocrine/Autoimmune: None, Type 2 diabetes GI: GERD, Other Psych: Depression, Anxiety, Bipolar disorder, Panic attacks, Post traumatic stress disorder Musculoskeletal: Osteoarthritis, Fibromyalgia Derm: Psoriasis - Past Surgical History Past Surgical History: Yes Ortho: Carpal Tunnel surgery - Present Medications Home Medications: Ambulatory Orders Medication Instructions Recorded Confirmed Albuterol 2.5 mg INH Q4H PRN 10/11/16 09/20/17 Clobetasol Propionate/Emoll 15 gm TP DAILY PRN 05/21/17 09/20/17 [Clobetasol Emollient 0.05% Crm] Medroxyprogesterone Acetate 104 mg SQ ONCE 05/21/17 09/20/17 [Depo-Subq Provera 104] Metformin HCl 1,000 mg PO BID 05/21/17 09/20/17 Zolpidem [Ambien] 5 mg PO HS 05/21/17 09/20/17 Esomeprazole Magnesium [Nexium 20 mg PO DAILY PRN 07/16/17 09/20/17 24Hr] Diclofenac Sodium [Voltaren] 1 applic TD BID PRN 09/20/17 09/20/17 Albuterol Sulf [Ventolin Hfa 1 - 2 puffs INH Q4HR PRN #1 inhaler 12/01/17 Inhaler] Fluticasone/Salmeterol [Advair 1 each IH BID #1 blst.w.dev 12/04/17 500-50 Diskus] Ipratropium/Albuterol [Duoneb] 3 ml INH Q6H #1 unit 12/04/17 Nebulizer [Aeroneb Go Nebulizer] 1 each MC ONCE #1 each 12/04/17 - Allergies Allergies/Adverse Reactions: Allergies Allergy/AdvReac Type Severity Reaction Status Date / Time Penicillins Allergy Hives Verified 12/05/17 23:47 - Social History Does the pt smoke?: Yes Smoking Status: Current every day smoker Does the pt drink ETOH?: No Does the pt have substance abuse?: Yes - Immunizations Immunizations are current?: Yes - POLST Patient has POLST: No PD ED PE NORMAL - Vitals Vital signs reviewed: Yes - General General: Alert and oriented X 3, No acute distress - HEENT HEENT: Atraumatic - Cardiac Cardiac: RRR - Respiratory Respiratory: No respiratory distress - Abdomen Abdomen: Soft, Non tender, Non distended - Derm Derm: Normal color, Warm and dry - Extremities Extremities: No deformity - Neuro Neuro: Alert and oriented X 3 PD ED PE EXPANDED - HEENT HEENT: Dry mucous membranes Results - Vitals Vitals: Vital Signs - 24 hr 04/19/18 04/19/18 04/19/18 12:27 13:03 13:30 Temperature 36.4 C L Heart Rate 101 H 98 97 Respiratory 20 20 19 Rate Blood Pressure 137/74 H 126/82 H 133/83 H O2 Saturation 97 98 97 Oxygen O2 Source Room air - Labs Labs: Laboratory Tests 04/19/18 04/19/18 04/19/18 12:32 12:55 12:55 WBC 12.4 H RBC 4.94 Hgb 15.0 Hct 44.0 MCV 88.9 MCH 30.3 MCHC 34.1 RDW 13.4 Plt Count 287 MPV 8.6 Neut # (Auto) 8.8 H Lymph # (Auto) 2.4 [place] # (Auto) 0.7 Eos # (Auto) 0.5 Baso # (Auto) 0.1 Absolute Nucleated RBC 0.01 Nucleated RBC % 0.1 VBG pH VBG pCO2 VBG pO2 VBG HCO3 VBG Total CO2 VBG O2 Saturation VBG Base Excess Sodium 131 L Potassium 3.7 Chloride 99 L Carbon Dioxide 22 Anion Gap 10.0 BUN 8 Creatinine 0.6 Estimated GFR (MDRD) 112 Glucose 309 H POC Whole Bld Glucose 357 H Calcium 8.7 Phosphorus 3.4 Magnesium 1.6 L Total Bilirubin 0.5 AST 35 ALT 38 Alkaline Phosphatase 85 B-Natriuretic Peptide Total Protein 7.0 Albumin 3.6 Globulin 3.4 Albumin/Globulin Ratio 1.1 Lipase 40 Serum Ketones NEGATIVE 04/19/18 04/19/18 12:55 12:55 WBC RBC Hgb Hct MCV MCH MCHC RDW Plt Count MPV Neut # (Auto) Lymph # (Auto) [place] # (Auto) Eos # (Auto) Baso # (Auto) Absolute Nucleated RBC Nucleated RBC % VBG pH 7.464 H VBG pCO2 32.6 L VBG pO2 77.4 H VBG HCO3 22.9 L VBG Total CO2 23.9 L VBG O2 Saturation 96.6 H VBG Base Excess 0.0 Sodium Potassium Chloride Carbon Dioxide Anion Gap BUN Creatinine Estimated GFR (MDRD) Glucose POC Whole Bld Glucose Calcium Phosphorus Magnesium Total Bilirubin AST ALT Alkaline Phosphatase B-Natriuretic Peptide 6 Total Protein Albumin Globulin Albumin/Globulin Ratio Lipase Serum Ketones PD MEDICAL DECISION MAKING - ED course Complexity details: reviewed old records, reviewed results, re-evaluated patient , considered differential, d/w patient ED course: Patient was seen and examined at bedside. iv access was gained and labs were drawn. patient was started on a fluid bolus. Patient did have hyperglycemia but no signs of dka. a significant amount of time was spent with the patient concerning better glycemic control. Patient required no further inpatient work up and was stable for discharge with outpatient follow up. - Sepsis Event Vital Signs: Vital Signs - 24 hr 04/19/18 04/19/18 04/19/18 12:27 13:03 13:30 Temperature 36.4 C L Heart Rate 101 H 98 97 Respiratory 20 20 19 Rate Blood Pressure 137/74 H 126/82 H 133/83 H O2 Saturation 97 98 97 Oxygen O2 Source Room air Departure - Departure Disposition: 01 Home, Self Care Clinical Impression: Hyperglycemia due to type 2 diabetes mellitus Condition: Good Instructions: ED Hyperglycemia Diabetic Follow-Up: Elli Wong ARNP [Primary Care Provider] - Tomorrow Comments: Your blood sugar is very out of control. It is important that you take significant steps in keeping it under control. You should continue with your metformin but you also need to cut out all sugar and processes food. You should not drink anything other than water or coffee. You can also do light exercises. you should call your doctor tomorrow to schedule a follow up appointment, sooner than the one scheduled.
[2018-04-19 14:56] VITALS: BP 124/70
== END 2018-04-19 15:00 | disposition home or self-care (01) ==
LOC: ED 12:15
DX: E11.65 Type 2 diabetes mellitus with hyperglycemia (principal); I10 Essential (primary) hypertension; F17.200 Nicotine dependence, unspecified, uncomplicated
CPT/HCPCS: 36415; 80053; 82009; 82803; 83690; 83735; 83880; 84100; 85025; 99283

== ENCOUNTER 2018-05-10 04:03 | Outpatient (CLI) | payer MEDICAID | END 2018-05-10 04:04 | disposition critical access hospital (66) | LOC: EMS 04:03 | PROVIDERS: ATTEND Surgery | DX: R42 Dizziness and giddiness (principal); R11.0 Nausea | CPT/HCPCS: A0425; A0429; A0999 ==

== ENCOUNTER 2018-05-10 04:22 | Emergency (ER) | payer MEDICAID ==
--- NOTE | 2018-05-10 04:49 | ED Physician Documentation ---
History of Present Illness - Stated complaint Stated Complaint: MALAISE, DIZZY - Chief complaint Chief Complaint: Neuro - History obtained from History obtained from: Patient - History of Present Illness Timing: Enter time (02:30), Today Pain level now: 0 Improved by: rest Worsened by: movement - Additonal information Additional information: c/o nausea, dizziness, lightheadedness, blurry vision, generalized weakness. Symptoms began approximately 2:30 AM while at rest (at a desk at work). Blurry vision has resolved RIVETER, other symptoms remain although significantly improved. Review of Systems Constitutional: reports: Reviewed and negative Eyes: reports: Decreased vision (bilateral blurry vision, resolved RIVETER) Cardiac: reports: Reviewed and negative Respiratory: reports: Reviewed and negative GI: reports: Nausea. denies: Abdominal Pain, Vomiting : denies: Dysuria, Frequency Neurologic: reports: Generalized weakness. denies: Focal weakness, Numbness, Headache PD PAST MEDICAL HISTORY - Past Medical History Past Medical History: Yes Cardiovascular: Hypertension Respiratory: Asthma, Sleep apnea Endocrine/Autoimmune: None, Type 2 diabetes GI: GERD, Other Psych: Depression, Anxiety, Bipolar disorder, Panic attacks, Post traumatic stress disorder Musculoskeletal: Osteoarthritis, Fibromyalgia Derm: Psoriasis - Past Surgical History Past Surgical History: Yes Ortho: Carpal Tunnel surgery - Present Medications Home Medications: Ambulatory Orders Medication Instructions Recorded Confirmed Albuterol 2.5 mg INH Q4H PRN 10/11/16 09/20/17 Clobetasol Propionate/Emoll 15 gm TP DAILY PRN 05/21/17 09/20/17 [Clobetasol Emollient 0.05% Crm] Medroxyprogesterone Acetate 104 mg SQ ONCE 05/21/17 09/20/17 [Depo-Subq Provera 104] Metformin HCl 1,000 mg PO BID 05/21/17 09/20/17 Zolpidem [Ambien] 5 mg PO HS 05/21/17 09/20/17 Esomeprazole Magnesium [Nexium 20 mg PO DAILY PRN 07/16/17 09/20/17 24Hr] Diclofenac Sodium [Voltaren] 1 applic TD BID PRN 09/20/17 09/20/17 Albuterol Sulf [Ventolin Hfa 1 - 2 puffs INH Q4HR PRN #1 inhaler 12/01/17 Inhaler] Fluticasone/Salmeterol [Advair 1 each IH BID #1 blst.w.dev 12/04/17 500-50 Diskus] Ipratropium/Albuterol [Duoneb] 3 ml INH Q6H #1 unit 12/04/17 Nebulizer [Aeroneb Go Nebulizer] 1 each MC ONCE #1 each 12/04/17 Meclizine HCl 12.5 - 25 mg PO Q8HR PRN #20 tablet 05/10/18 Ondansetron Odt [Zofran] 4 mg TL Q6H PRN #10 tablet 05/10/18 - Allergies Allergies/Adverse Reactions: Allergies Allergy/AdvReac Type Severity Reaction Status Date / Time Penicillins Allergy Hives Verified 05/10/18 04:31 - Social History Does the pt smoke?: Yes Smoking Status: Current every day smoker Does the pt drink ETOH?: No Does the pt have substance abuse?: Yes - Immunizations Immunizations are current?: Yes - POLST Patient has POLST: No PD ED PE NORMAL - Vitals Vital signs reviewed: Yes - General General: Alert and oriented X 3, No acute distress, Well developed/nourished - HEENT HEENT: PERRL, EOMI, Moist mucous membranes - Cardiac Cardiac: RRR, No murmur - Respiratory Respiratory: No respiratory distress, Clear bilaterally - Abdomen Abdomen: Soft, Non tender - Neuro Neuro: Alert and oriented X 3, incident response manager 2-12 intact, No motor deficit, No sensory deficit, Normal speech Results - Vitals Vitals: Oxygen O2 Source Room air - Labs Labs: Laboratory Tests 05/10/18 05/10/18 05/10/18 04:28 04:45 04:45 WBC 11.3 H RBC 4.86 Hgb 14.6 Hct 43.2 MCV 89.0 MCH 30.1 MCHC 33.8 RDW 13.3 Plt Count 323 MPV 8.3 Neut # (Auto) 6.9 H Lymph # (Auto) 2.8 [place] # (Auto) 0.9 Eos # (Auto) 0.6 Baso # (Auto) 0.1 Absolute Nucleated RBC 0.01 Nucleated RBC % 0.1 Sodium 138 Potassium 3.7 Chloride 106 Carbon Dioxide 24 Anion Gap 8.0 BUN 15 Creatinine 1.2 H Estimated GFR (MDRD) 51 L Glucose 151 H POC Whole Bld Glucose 146 H Calcium 8.9 Total Bilirubin 0.7 AST 26 ALT 35 Alkaline Phosphatase 67 Total Protein 7.2 Albumin 4.2 Globulin 3.0 Albumin/Globulin Ratio 1.4 Lipase 50 PD MEDICAL DECISION MAKING - ED course Complexity details: reviewed results, re-evaluated patient, considered differential, d/w patient ED course: On reevaluation, after tests resulted and given antivert and zofran, reported significant improvement in symptoms. Also given PPI for reflux - Sepsis Event Vital Signs: Oxygen O2 Source Room air Departure - Departure Disposition: 01 Home, Self Care Clinical Impression: Dizziness, Vomiting Condition: Good Instructions: ED Dizziness UKO, ED Nausea Vomiting Follow-Up: Carol Ann Araujo DNP [Primary Care Provider] - Prescriptions: Meclizine HCl 12.5 - 25 mg PO Q8HR PRN #20 tablet PRN Reason: Dizziness Ondansetron Odt [Zofran] 4 mg TL Q6H PRN #10 tablet PRN Reason: Nausea / Vomiting Discharge Date/Time: 05/10/18 06:51
[2018-05-10 05:02] LABS: BASOPHILS # (AUTO) 0.1 10^3/uL (0.0-0.1); BASOPHILS % (AUTO) 0.9 %; EOSINOPHILS # (AUTO) 0.6 10^3/uL (0.0-0.7); EOSINOPHILS % (AUTO) 4.9 %; HGB - HEMOGLOBIN 14.6 g/dL (12.0-16.0); LYMPHOCYTES # (AUTO) 2.8 10^3/uL (1.5-3.5); LYMPHOCYTES % (AUTO) 25.1 %; MEAN CORPUSCULAR HEMOGLOBIN 30.1 pg (27.0-31.0); MEAN CORPUSCULAR HGB CONC 33.8 g/dL (32.0-36.0); MEAN PLATELET VOLUME 8.3 fL (7.9-10.8); MONOCYTES # (AUTO) 0.9 10^3/uL (0.0-1.0); MONOCYTES % (AUTO) 7.9 %; NEUTROPHILS # (AUTO) 6.9 10^3/uL (1.5-6.6); NEUTROPHILS % (AUTO) 61.2 %; PLT - PLATELET COUNT 323 10^3/uL (130-450); RED BLOOD COUNT 4.86 10^6/uL (4.20-5.40); RED CELL DISTRIBUTION WIDTH 13.3 % (12.0-15.0); WHITE BLOOD COUNT 11.3 x10^3/uL (4.8-10.8)
[2018-05-10] MEDS ORDERED: PANTOPRAZOLE 40 MG TABLET PO STA (05:05)
[2018-05-10] MEDS ORDERED: MECLIZINE 12.5 MG TABLET PO STA (05:06)
[2018-05-10] MEDS ORDERED: ONDANSETRON 4 MG/2 ML VIAL IVP STA (05:06)
[2018-05-10] MEDS ORDERED: ONDANSETRON 4 MG/2 ML VIAL ONE (05:14)
[2018-05-10 05:16] LABS: ALBUMIN 4.2 g/dL (3.2-5.5); ALBUMIN/GLOBULIN RATIO 1.4 (1.0-2.2); BILIRUBIN,TOTAL 0.7 mg/dL (0.2-1.0); CALCIUM 8.9 mg/dL (8.5-10.3); CREATININE 1.2 mg/dL (0.4-1.0); TOTAL PROTEIN 7.2 g/dL (6.7-8.2)
[2018-05-10 06:33] VITALS: BP 110/72
== END 2018-05-10 06:51 | disposition home or self-care (01) ==
LOC: EDUNIT# → SUPCPDRO 04:22 → ED 04:22
DX: R42 Dizziness and giddiness (principal); R11.2 Nausea with vomiting, unspecified; I10 Essential (primary) hypertension; G47.30 Sleep apnea, unspecified; E11.9 Type 2 diabetes mellitus without complications; K21.9 Gastro-esophageal reflux disease without esophagitis; M79.7 Fibromyalgia; M19.90 Unspecified osteoarthritis, unspecified site; F17.200 Nicotine dependence, unspecified, uncomplicated; Z79.84 Long term (current) use of oral hypoglycemic drugs
CPT/HCPCS: 36415; 80053; 83690; 85025; 96374; 99283; 99284; A9270

== ENCOUNTER 2018-08-02 10:50 | Outpatient (CLI) | payer MEDICAID ==
[2018-08-02 19:09] LABS: ALBUMIN 4.1 g/dL (3.2-5.5); ALBUMIN/GLOBULIN RATIO 1.3 (1.0-2.2); ALKALINE PHOSPHATASE 69 IU/L (42-121); ALT ALANINE AMINOTRANSFERASE 21 IU/L (10-60); AST ASPARTATE AMINOTRANSFERASE 18 IU/L (10-42); BILIRUBIN,TOTAL 0.9 mg/dL (0.2-1.0); BUN - BLOOD UREA NITROGEN 10 mg/dL (6-20); CALCIUM 8.9 mg/dL (8.5-10.3); CARBON DIOXIDE - CO2 26 mmol/L (21-32); CHLORIDE 102 mmol/L (101-111); CHOL/HDL RATIO 4.3 (<4.4); CHOLESTEROL 150 mg/dL; CREATININE 0.6 mg/dL (0.4-1.0); GFR - MDRD 112 (>89); GLUCOSE 108 mg/dL (70-100); HDL CHOLESTEROL 35 mg/dL; LDL CHOLESTEROL,CALCULATED 101 mg/dL; LDL/HDL RATIO 2.9 (<4.4); SODIUM 134 mmol/L (135-145); TOTAL PROTEIN 7.2 g/dL (6.7-8.2); VLDL CHOLESTEROL 14 mg/dL
[2018-08-02 19:33] LABS: HB2 TOTAL 15.7 g/dL; HEMOGLOBIN A1C 0.68 g/dL; HEMOGLOBIN A1C % 6.1 % (4.6-6.2)
== END 2018-08-02 10:51 | disposition home or self-care (01) ==
LOC: LAB.N 10:50
PROVIDERS: ATTEND Nurse Practitioner
DX: E11.40 Type 2 diabetes mellitus with diabetic neuropathy, unspecified (principal)
CPT/HCPCS: 36415; 80053; 80061; 82043; 83036; 83721; 84443

== ENCOUNTER 2018-08-04 12:00 | Outpatient (CLI) | payer MEDICAID | END 2018-08-04 12:01 | disposition home or self-care (01) | LOC: LAB.N 12:00 | PROVIDERS: ATTEND Internal Medicine Gastroenterology | DX: R19.7 Diarrhea, unspecified (principal) | CPT/HCPCS: 81599; 87045; 87046; 87177; 87209; 87328; 87329; 87493 ==

== ENCOUNTER 2018-08-08 10:45 | Outpatient (CLI) | payer MEDICAID | END 2018-08-08 10:46 | disposition home or self-care (01) | LOC: SC 10:45 | PROVIDERS: ATTEND Nurse Practitioner Family | DX: G47.33 Obstructive sleep apnea (adult) (pediatric) (principal) | CPT/HCPCS: 99212; 99215 ==

== ENCOUNTER 2018-09-13 08:00 | Outpatient (CLI) | payer MEDICAID | END 2018-09-13 23:59 | disposition home or self-care (01) | LOC: LAB.R 08:00 | PROVIDERS: ATTEND Nurse Practitioner | DX: L03.039 Cellulitis of unspecified toe (principal) | CPT/HCPCS: 87070; 87077; 87081; 87181; 87205 ==

== ENCOUNTER 2018-10-05 16:42 | Outpatient (CLI) | payer MEDICAID ==
--- NOTE | 2018-10-06 09:25 | Ultrasound Report ---
Reason: MENORRHAGIA Procedure Date: 10/05/2018 Accession Number: [id number] / [id number] Procedure: US - Pelvic w/Transvaginal CPT Code: FULL RESULT: EXAM: PELVIC ULTRASOUND EXAM DATE: 10/05/2018 04:55 PM. CLINICAL HISTORY: Menorrhagia. COMPARISON: None. TECHNIQUE: Realtime transabdominal pelvic scan performed to identify the uterus and adnexa and as an overview of other pelvic structures, followed by transvaginal scan to provide greater detail of the uterus and adnexa, with static image documentation. FINDINGS: Uterus: 6.6 x 3.5 x 5.0 cm, volume 60.4 cc. Anteverted position. Overall size and echotexture are within normal limits though there is thickening of the posterior fundal region with anterior displacement of the fundal endometrium. Masses: Due to the above described uterine configuration, suspect intramural fibroid with submucosal component which likely measures approximately 2.2 x 2.0 cm but is not clearly delineated sonographically. Endometrium: 6 mm. Displaced appearance, otherwise normal. Cervix: Contains trace amount of fluid. Right Ovary: 3.1 x 2.3 x 2.5 cm, volume 9.3 cc. Normal echotexture and blood flow. Left Ovary: 4.2 x 2.0 x 1.8 cm, volume 7.9 cc. Normal echotexture and blood flow. Free Fluid: None. Other: None. IMPRESSION: Suspect posterior fundal fibroid as described. RADIA
== END 2018-10-05 16:43 | disposition home or self-care (01) ==
LOC: DI 16:42
PROVIDERS: ATTEND Nurse Practitioner
DX: N92.0 Excessive and frequent menstruation with regular cycle (principal)
CPT/HCPCS: 76830; 76856

== ENCOUNTER 2018-10-19 10:48 | Outpatient (CLI) | payer MEDICAID | END 2018-10-19 10:49 | disposition home or self-care (01) | LOC: SC 10:48 | PROVIDERS: ATTEND Nurse Practitioner Family | DX: G47.33 Obstructive sleep apnea (adult) (pediatric) (principal); G47.00 Insomnia, unspecified | CPT/HCPCS: 99212; 99214 ==

== ENCOUNTER 2018-10-25 08:00 | Outpatient (CLI) | payer MEDICAID | END 2018-10-25 23:59 | disposition home or self-care (01) | LOC: LAB.R 08:00 | PROVIDERS: ATTEND Obstetrics & Gynecology | DX: R10.2 Pelvic and perineal pain (principal); L68.0 Hirsutism; D25.9 Leiomyoma of uterus, unspecified | CPT/HCPCS: 87491; 87591 ==

== ENCOUNTER 2018-12-10 12:10 | Emergency (ER) | payer MEDICAID ==
[2018-12-10 12:28] VITALS: BP 113/78
--- NOTE | 2018-12-10 14:18 | ED Physician Documentation ---
PD HPI URI - Stated complaint Stated Complaint: FLU LIKE SYMPTOMS - Chief complaint Chief Complaint: Resp - History obtained from History obtained from: Patient - History of Present Illness Timing - onset: How many days ago (4) Timing duration: Days (4) Pain level max: 4 Pain level now: 3 Associated symptoms: Fever, Chills, Sore throat, Dry cough Contributing factors: Sick contact. No: Immunocompromised, Unimmunized, COPD / asthma Improves by: Rest Worsened by: Activity - Additional information Additional information: 38-year-old female with fever, cough, congestion, sore throat for the past 4 days. Worse with exertion, better with rest. Has been taking cough medication at home. No decongestants. 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 Review of Systems Ears: denies: Ear pain GI: denies: Abdominal Pain, Vomiting, Diarrhea : denies: Now EGA Skin: denies: Rash Musculoskeletal: denies: Neck pain, Back pain Neurologic: denies: Headache PD PAST MEDICAL HISTORY - Past Medical History Cardiovascular: Hypertension Respiratory: Asthma, Sleep apnea Endocrine/Autoimmune: None, Type 2 diabetes GI: GERD, Other Psych: Depression, Anxiety, Bipolar disorder, Panic attacks, Post traumatic str ess disorder Musculoskeletal: Osteoarthritis, Fibromyalgia Derm: Psoriasis - Past Surgical History Past Surgical History: Yes Ortho: Carpal Tunnel surgery - Present Medications Home Medications: Ambulatory Orders Medication Instructions Recorded Confirmed Albuterol 2.5 mg INH Q4H PRN 10/11/16 09/20/17 Clobetasol Propionate/Emoll 15 gm TP DAILY PRN 05/21/17 09/20/17 [Clobetasol Emollient 0.05% Crm] Medroxyprogesterone Acetate 104 mg SQ ONCE 05/21/17 09/20/17 [Depo-Subq Provera 104] Metformin HCl 1,000 mg PO BID 05/21/17 09/20/17 Zolpidem [Ambien] 5 mg PO HS 05/21/17 09/20/17 Esomeprazole Magnesium [Nexium 20 mg PO DAILY PRN 07/16/17 09/20/17 24Hr] Diclofenac Sodium [Voltaren] 1 applic TD BID PRN 09/20/17 09/20/17 Albuterol Sulf [Ventolin Hfa 1 - 2 puffs INH Q4HR PRN #1 inhaler 12/01/17 Inhaler] Fluticasone/Salmeterol [Advair 1 each IH BID #1 blst.w.dev 12/04/17 500-50 Diskus] Ipratropium/Albuterol [Duoneb] 3 ml INH Q6H #1 unit 12/04/17 Nebulizer [Aeroneb Go Nebulizer] 1 each MC ONCE #1 each 12/04/17 Meclizine HCl 12.5 - 25 mg PO Q8HR PRN #20 tablet 05/10/18 Ondansetron Odt [Zofran] 4 mg TL Q6H PRN #10 tablet 05/10/18 Benzonatate [Tessalon Perle] 100 - 200 mg PO TID PRN #30 capsule 12/10/18 Cetirizine HCl/Pseudoephedrine 1 each PO BID PRN #30 tab.er.12h 12/10/18 [Zyrtec-D Tablet] - Allergies Allergies/Adverse Reactions: Allergies Allergy/AdvReac Type Severity Reaction Status Date / Time Penicillins Allergy Hives Verified 12/10/18 12:28 - Social History Does the pt smoke?: Yes Smoking Status: Current every day smoker Does the pt drink ETOH?: No Does the pt have substance abuse?: Yes - Immunizations Immunizations are current?: Yes - POLST Patient has POLST: No PD ED PE NORMAL - Vitals Vital signs reviewed: Yes - General General: Alert and oriented X 3, No acute distress, Well developed/nourished - HEENT HEENT: PERRL, Ears normal, Moist mucous membranes, Pharynx benign - Neck Neck: Supple, no meningeal sign - Cardiac Cardiac: RRR, Strong equal pulses - Respiratory Respiratory: No respiratory distress, Clear bilaterally - Abdomen Abdomen: Soft, Non tender, Non distended - Derm Derm: Warm and dry, No rash - Extremities Extremities: No edema - Neuro Neuro: Alert and oriented X 3 - Psych Psych: Normal mood, Normal affect Results - Vitals Vitals: Vital Signs - 24 hr 12/10/18 12:26 Temperature 36.0 C L Heart Rate 102 H Respiratory 14 Rate Blood Pressure 113/78 O2 Saturation 98 Oxygen O2 Source Room air - Labs Labs: Laboratory Tests 12/10/18 12:40 Influenza A (Rapid) Negative Influenza B (Rapid) Negative PD MEDICAL DECISION MAKING - ED course Complexity details: reviewed results, considered differential, d/w patient ED course: 38-year-old female with what appears to be a viral syndrome. We will continue supportive care and follow-up with her doctor. She is very well-appearing, nontoxic. Afebrile. No hypoxia. No evidence of pneumonia. Influenza testing is negative. Patient counseled regarding signs and symptoms for which I believe and urgent re-evaluation would be necessary. Patient with good understanding of and agreement to plan and is comfortable going home at this time This document was made in part using voice recognition software. While efforts are made to proofread this document, sound alike and grammatical errors may occur. Departure - Departure Disposition: 01 Home, Self Care Clinical Impression: Viral URI with cough Condition: Good Instructions: ED Viral Syndrome Follow-Up: Carol Ann Araujo DNP [Primary Care Provider] - Within 1 week Prescriptions: Benzonatate [Tessalon Perle] 100 - 200 mg PO TID PRN #30 capsule PRN Reason: Cough Cetirizine HCl/Pseudoephedrine [Zyrtec-D Tablet] 1 each PO BID PRN #30 tab.er.12h PRN Reason: nasal congestion Comments: Use the medications as prescribed. Return if you worsen. Follow-up with your doctor for further evaluation and care. Forms: Activity restrictions
== END 2018-12-10 14:24 | disposition home or self-care (01) ==
LOC: ED 12:10
DX: J06.9 Acute upper respiratory infection, unspecified (principal); B97.89 Other viral agents as the cause of diseases classified elsewhere; I10 Essential (primary) hypertension; E11.9 Type 2 diabetes mellitus without complications; Z79.84 Long term (current) use of oral hypoglycemic drugs; F17.200 Nicotine dependence, unspecified, uncomplicated
CPT/HCPCS: 87275; 87276; 99283

== ENCOUNTER 2019-01-25 10:23 | Outpatient (CLI) | payer MEDICAID ==
--- NOTE | 2019-01-25 10:49 | XRAY Report ---
Reason: JOINT PAIN Procedure Date: 01/25/2019 Accession Number: [id number] / [id number] Procedure: XRN - Hand 2 View RT CPT Code: FULL RESULT: EXAM: RIGHT HAND RADIOGRAPHY EXAM DATE: 01/25/2019 10:36 AM. CLINICAL HISTORY: Right hand pain following blunt trauma. COMPARISON: None. TECHNIQUE: 3 views. FINDINGS: Bones: Normal. No fractures or bone lesions. Joints: Normal. No subluxations. Soft Tissues: Normal. No soft tissue swelling. IMPRESSION: Normal hand radiography. RADIA
== END 2019-01-25 10:24 | disposition home or self-care (01) ==
LOC: DI.N 10:23
PROVIDERS: ATTEND Nurse Practitioner
DX: M79.641 Pain in right hand (principal)

== ENCOUNTER 2019-02-15 06:15 | Day surgery (SDC) | payer MEDICAID ==
[2019-02-15] MEDS ORDERED: LACTATED RINGERS 1,000 ML IV ONE ×2 (06:33→08:12)
[2019-02-15 07:05] LABS: HCG UR QUAL NEGATIVE
--- NOTE | 2019-02-15 07:07 | ANESTHESIA ---
Pre-Anesthesia VS, & Labs - Diagnosis abnormal uterine bleeding - Procedure myosure hysteroscopy, d&c Vital Signs: Temp Pulse Resp BP Pulse Ox 36.2 C L 105 H 16 125/87 H 95 02/15/19 06:36 02/15/19 06:36 02/15/19 06:36 02/15/19 06:36 02/15/19 06:36 Height 5 ft 8 in Weight (kg) 113.9 kg Body Mass Index 41.9 - NPO >8 hours - Is Patient ?: No - Lab Results Lab results reviewed: Yes Home Medications and Allergies Home Medications: Ambulatory Orders ARIPiprazole [Aripiprazole] 2 mg PO DAILY 02/07/19 Acetaminophen [Tylenol] 650 mg PO Q6H PRN 02/07/19 Escitalopram Oxalate [Lexapro] 20 mg PO DAILY 02/07/19 Fluticasone Propionate [Flovent Hfa] 2 puffs IH BID 02/07/19 Insulin Lispro [Humalog Kwikpen U-200] 0 unit SUBQ TIDWM 02/07/19 Liraglutide [Victoza 2-Erick] 1.8 mg SQ DAILY 02/07/19 Lisinopril 5 mg PO DAILY 02/07/19 Multivitamin [Multivitamins] 1 each PO DAILY 02/07/19 Omeprazole 20 mg PO DAILY 02/07/19 Propranolol HCl 20 mg PO BID PRN 02/07/19 Ranitidine HCl [Acid Control] 150 mg PO BID 02/07/19 Simvastatin 40 mg PO QPM 02/07/19 Trazodone HCl 100 mg PO QPM 02/07/19 Varenicline Tartrate [Chantix] 1 mg PO BID 02/07/19 Albuterol 2.5 mg INH Q4H PRN 10/11/16 Clobetasol Propionate/Emoll [Clobetasol Emollient 0.05% Crm] 15 gm TP BID 05/21/17 Metformin HCl 1,000 mg PO BID 05/21/17 Diclofenac Sodium [Voltaren] 1 applic TD BID PRN 09/20/17 ARIPiprazole [Aripiprazole] 2 mg PO DAILY 02/07/19 Acetaminophen [Tylenol] 650 mg PO Q6H PRN 02/07/19 Escitalopram Oxalate [Lexapro] 20 mg PO DAILY 02/07/19 Fluticasone Propionate [Flovent Hfa] 2 puffs IH BID 02/07/19 Insulin Lispro [Humalog Kwikpen U-200] 0 unit SUBQ TIDWM 02/07/19 Liraglutide [Victoza 2-Erick] 1.8 mg SQ DAILY 02/07/19 Lisinopril 5 mg PO DAILY 02/07/19 Multivitamin [Multivitamins] 1 each PO DAILY 02/07/19 Omeprazole 20 mg PO DAILY 02/07/19 Propranolol HCl 20 mg PO BID PRN 02/07/19 Ranitidine HCl [Acid Control] 150 mg PO BID 02/07/19 Simvastatin 40 mg PO QPM 02/07/19 Trazodone HCl 100 mg PO QPM 02/07/19 Varenicline Tartrate [Chantix] 1 mg PO BID 02/07/19 Allergies/Adverse Reactions: Allergies Allergy/AdvReac Type Severity Reaction Status Date / Time Penicillins Allergy Hives Verified 12/10/18 12:28 Anes History & Medical History - Anesthetic History Anesthesia Complications: reports: No previous complications Family history of Anesthesia Complications: Denies Family history of Malignant Hyperthermia: Denies - Medical History Cardiovascular: reports: Hypertension, High cholesterol Pulmonary: reports: Asthma, Sleep apnea, CPAP use Gastrointestinal: reports: GERD Urinary: reports: None Musculoskeletal: reports: Osteoarthritis, Fibromyalgia Endocrine/Autoimmune: reports: Type 2 diabetes Skin: reports: Psoriasis Smoking Status: Current every day smoker - Surgical History General: EGD Orthopedic: Carpal Tunnel surgery Exam General: Alert, Oriented x3, Cooperative, No acute distress Dental: WNL Mouth Openin Fingerbreadth Neck Mobility: Normal Mallampati classification: II Thyromental Distance: 4-6 cm Respiratory: Lungs clear, Normal breath sounds, No respiratory distress, No accessory muscle use Cardiovascular: Regular rate, Normal S1, Normal S2, No murmurs Mental/Cognitive Status: Alert/Oriented X3, Normal for patient Plan Anesthesia Type: General Consent for Procedure(s) Verified and Reviewed: Yes Code Status: Attempt Resuscitation ASA classification: 2-Mild systemic disease Is this case an emergency?: No
[2019-02-15] MEDS ORDERED: BUPIVACAINE 0.5%-EPI 1:200000 PF 30 ML VIAL ONE (07:29)
[2019-02-15] MEDS ORDERED: LIDOCAINE 1%-EPI 1:100000 30 ML MDV ONE (07:30)
[2019-02-15] MEDS ORDERED: ONDANSETRON 4 MG/2 ML VIAL IVP ONE (07:58)
[2019-02-15] MEDS ORDERED: MIDAZOLAM 2 MG/2 ML VIAL IVP ONE (07:58)
[2019-02-15] MEDS ORDERED: PROPOFOL 200 MG/20 ML VIAL IVP ONE (07:58)
[2019-02-15] MEDS ORDERED: KETOROLAC 30 MG/ML VIAL IVP ONE (07:58)
[2019-02-15] MEDS ORDERED: fentaNYL 100 MCG/2 ML VIAL IVP ONE (07:58)
[2019-02-15] MEDS ORDERED: LIDOCAINE 1%-EPI 1:100000 30 ML MDV SUBQ ONE (08:08)
--- NOTE | 2019-02-15 08:20 | OPERATIVE REPORT ---
Operative Report - General Planned Procedure: Hysteroscopy D&C with possible myomectomy Pre-Op Diagnosis: Dysfunctional uterine bleeding. Leiomyoma on ultrasound Procedure Performed: Hysteroscopy D&C Post Op Diagnosis: Same. - Procedure Note Primary Surgeon: Shanell Hearn MD Anesthesia Technique: General LMA Pathology: Endometrial curettings Estimated Blood Loss (mL): 5 Urine Output (mL): 50 Indications: Dysfunctional uterine bleeding Findings: Unremarkable endometrial cavity. No leiomyoma visible within the cavity. Bilateral tubal ostia observed. Complications: none
--- NOTE | 2019-02-15 08:28 | Discharge Plan ---
Discharge Plan Disposition: 01 Home, Self Care Condition: Good Diet: Regular Activity Restrictions: Nothing in the vagina for one week Shower Restrictions: No Driving Restrictions: Yes (No driving for 24 hours after surgery) No Smoking: If you smoke, Please STOP! Call for help. Follow-up with: Shanell Hearn MD [Provider Admit Priv/Credential] -
[2019-02-15] MEDS ORDERED: oxyCODONE 5 MG TABLET PO PRN (08:30)
[2019-02-15] MEDS ORDERED: HYDROmorphone 0.5 MG/0.5 ML SYRINGE IVP PRN (08:30)
[2019-02-15] MEDS ORDERED: fentaNYL 100 MCG/2 ML VIAL ONE (08:42)
[2019-02-15] MEDS ORDERED: HYDROmorphone 1 MG/ML CARPUJECT ONE (08:43)
[2019-02-15] MEDS ORDERED: oxyCODONE 5 MG TABLET ONE (09:26)
[2019-02-15 09:44] VITALS: BP 131/84
--- NOTE | 2019-02-15 13:28 | OPERATIVE REPORT ---
DATE OF SERVICE: 02/15/2019 Physician: Shanell Hearn MD PREOPERATIVE DIAGNOSES 1. Abnormal uterine bleeding. 2. Fibroid on ultrasound. POSTOPERATIVE DIAGNOSES 1. Abnormal uterine bleeding. 2. No submucosal fibroid identified. PROCEDURES PERFORMED: Hysteroscopy, dilation and curettage. SURGEON: Shanell Hearn MD WREATH INSPECTOR: None. ANESTHESIA: General. ESTIMATED BLOOD LOSS: 5 mL URINE OUTPUT: 50 mL INTRAVENOUS FLUIDS: 500 mL COUNTS: Correct x2. COMPLICATIONS: None apparent. DISPOSITION: Stable to the recovery room. PROPHYLAXIS: SCDs and BRYSON hose to the bilateral lower extremities. No antibiotics indicated. SPECIMENS: Endometrial curettings sent to pathology. FINDINGS: Normal uterine cavity without cavity-distorting masses seen. Both tubal ostia were visual ized. There were no abnormalities of the endometrial cavity. PROCEDURE: The patient was brought to the operating room, where she was induced with general anesthe hoang. She was placed in low lithotomy in [facility]. A bimanual exam revealed an axial uteru s without adnexal masses. She was prepped and draped in the usual sterile fashion. A speculum was placed in the vagina and a single-tooth tenaculum was applied to the anterior lip of t he cervix. A paracervical block was used with 10 mL of 0.5% Marcaine with epinephrine in divided dos es. The cervix was easily dilated to 7 mm. The MyoSure hysteroscope was inserted into the uterine c avity and normal findings were appreciated. The hysteroscopy time was very brief and so the fluid de ficit was not noted. We had planned to do a myomectomy if she did have a submucosal fibroid, but non e were seen. The hysteroscope was removed and curettage was performed gently. Some tissue was obtained. The proc edure was terminated. All instruments were removed from the vagina. The blood and Betadine was wash ed from her body. She was returned to the supine position prior to waking. TD: 02/15/2019 11:52
== END 2019-02-15 06:16 | disposition home or self-care (01) ==
LOC: SDS 06:15
PROVIDERS: ATTEND Obstetrics & Gynecology
PROC: 0UJD8ZZ Inspection of Uterus and Cervix, Via Natural or Artificial Opening Endoscopic (ICD-10-PCS; 2019-02-15)
PROC: 0UDB7ZZ Extraction of Endometrium, Via Natural or Artificial Opening (ICD-10-PCS; principal; 2019-02-15 07:30)
DX: N92.0 Excessive and frequent menstruation with regular cycle (principal); I10 Essential (primary) hypertension; E11.42 Type 2 diabetes mellitus with diabetic polyneuropathy; E66.01 Morbid (severe) obesity due to excess calories; J44.9 Chronic obstructive pulmonary disease, unspecified; G47.30 Sleep apnea, unspecified; F17.210 Nicotine dependence, cigarettes, uncomplicated; Z68.41 Body mass index [BMI] 40.0-44.9, adult
CPT/HCPCS: 58558; 81025; A9270; J1170; J7120

== ENCOUNTER 2019-03-07 08:18 | Outpatient (CLI) | payer MEDICAID | END 2019-03-07 08:19 | disposition home or self-care (01) | LOC: SC 08:18 | PROVIDERS: ATTEND Nurse Practitioner Family | DX: G47.33 Obstructive sleep apnea (adult) (pediatric) (principal) | CPT/HCPCS: 99212; 99214 ==

== ENCOUNTER 2019-04-18 08:28 | Outpatient (CLI) | payer MEDICAID | END 2019-04-18 08:29 | disposition home or self-care (01) | LOC: SC 08:28 | PROVIDERS: ATTEND Nurse Practitioner Family | DX: G47.33 Obstructive sleep apnea (adult) (pediatric) (principal) | CPT/HCPCS: 99212; 99214 ==

== ENCOUNTER 2019-04-23 05:39 | Emergency (ER) | payer MEDICAID ==
--- NOTE | 2019-04-23 07:11 | ED Physician Documentation ---
PD HPI HEENT - Stated complaint Stated Complaint: SWOLLEN THROAT/FLU SX - Chief complaint Chief Complaint: General - History obtained from History obtained from: Patient - History of Present Illness Timing - onset: How many days ago (3) Timing - duration: Days (3) Timing - details: Gradual onset, Still present Location: Throat Improves: Medication Worsens: Swalllowing Associated symptoms: Fever, Congestion, Swollen nodes, Headache, Cough Similar symptoms before: Diagnosis (pharyngitis) Recently seen: Not recently seen - Additional information Additional information: 38-year-old female with a sore throat fever denies having any difficulty breathing. Review of Systems Constitutional: reports: Fever, Chills Eyes: denies: Decreased vision Ears: reports: Ear pain Nose: reports: Rhinorrhea / runny nose, Congestion Throat: reports: Sore throat Cardiac: denies: Chest pain / pressure, Palpitations Respiratory: reports: Cough. denies: Dyspnea GI: denies: Abdominal Pain, Nausea, Vomiting : denies: Dysuria PD PAST MEDICAL HISTORY - Past Medical History Cardiovascular: Hypertension, High cholesterol Respiratory: Asthma, Sleep apnea, CPAP use Endocrine/Autoimmune: Type 2 diabetes GI: GERD : None HEENT: Chronic vision loss Psych: Depression, Anxiety, Bipolar disorder, Panic attacks, Post traumatic stress disorder, Other Musculoskeletal: Osteoarthritis, Fibromyalgia Derm: Psoriasis - Past Surgical History Past Surgical History: Yes General: EGD Ortho: Carpal Tunnel surgery - Present Medications Home Medications: Ambulatory Orders Medication Instructions Recorded Confirmed Trazodone HCl 100 mg PO QPM 02/07/19 02/15/19 Acetaminophen [Tylenol] 650 mg PO Q6H PRN 04/06/19 04/06/19 Albuterol Sulfate 1.25 mg IH Q4HR PRN 04/06/19 04/06/19 Albuterol Sulfate [Proair Hfa 2 puffs ORAL Q4HR PRN 04/06/19 04/06/19 Inhaler] Aripiprazole [Abilify] 1 tab ORAL DAILY 04/06/19 04/06/19 Diclofenac Sodium [Voltaren] 2 gm TOP PRN PRN 04/06/19 04/06/19 Escitalopram Oxalate [Lexapro] 5 mg PO DAILY 04/06/19 04/06/19 Insulin Lispro [Humalog Kwikpen 04/06/19 U-200] Insulin Lispro [Humalog Kwikpen SQ 04/06/19 U-200] Liraglutide [Victoza 2-Erick] 1.8 mg SQ DAILY 04/06/19 04/06/19 Metformin HCl 1,000 mg PO BID 04/06/19 04/06/19 Trazodone HCl 2 tab PO QPM 04/06/19 04/06/19 Azithromycin [Zithromax] 250 mg PO DAILY #6 tablet 04/23/19 Hydrocodone/Acetaminophen 1 - 2 each PO Q6H PRN #8 tablet 04/23/19 [Hydrocodon-Acetaminophen 5-325] - Allergies Allergies/Adverse Reactions: Allergies Allergy/AdvReac Type Severity Reaction Status Date / Time Penicillins Allergy Hives Verified 04/23/19 05:49 - Social History Does the pt smoke?: Yes Smoking Status: Current every day smoker Does the pt drink ETOH?: No Does the pt have substance abuse?: Yes - Immunizations Immunizations are current?: Yes - POLST Patient has POLST: No PD ED PE NORMAL - Vitals Vital signs reviewed: Yes (febrile tachy and hypertensive ) - General General: Alert and oriented X 3, No acute distress, Well developed/nourished - HEENT HEENT: Atraumatic, PERRL, EOMI, Other (There is inflamation to the right TM greater than the left and there is general inflamtion to the pharynx ) - Neck Neck: Supple, no meningeal sign, No bony TTP, Other (tender submandibular adenopathy ) - Cardiac Cardiac: RRR, No murmur - Respiratory Respiratory: No respiratory distress, Other (scattered wheezes bilat) - Abdomen Abdomen: Soft, Non tender - Back Back: No CVA TTP, No spinal TTP - Derm Derm: Normal color, Warm and dry, No rash - Extremities Extremities: No deformity, No edema - Neuro Neuro: Alert and oriented X 3, tig welder 2-12 intact, No motor deficit, No sensory deficit, Normal speech Eye Opening: Spontaneous Motor: Obeys Commands Verbal: Oriented GCS Score: 15 - Psych Psych: Normal mood, Normal affect Results - Vitals Vitals: Vital Signs - 24 hr 04/23/19 05:45 Temperature 37.8 C H Heart Rate 117 H Respiratory 18 Rate Blood Pressure 132/83 H O2 Saturation 98 Oxygen O2 Source Room air - Labs Labs: Laboratory Tests 04/23/19 05:50 Group A Strep Rapid POSITIVE H PD MEDICAL DECISION MAKING - ED course Complexity details: reviewed results, considered differential, d/w patient ED course: 38 y/o female with strep pharyngitis is administered PO decadron and we will put her on some zithromax. Departure - Departure Disposition: Home, Self Care Clinical Impression: Strep pharyngitis Condition: Stable Instructions: ED Strep Pharyngitis Conf Follow-Up: Alejandro Pandya PA-C [Primary Care Provider] - Prescriptions: Azithromycin [Zithromax] 250 mg PO DAILY #6 tablet Hydrocodone/Acetaminophen [Hydrocodon-Acetaminophen 5-325] 1 - 2 each PO Q6H PRN #8 tablet PRN Reason: pain
[2019-04-23] MEDS ORDERED: DEXAMETHASONE 10 MG/ML VIAL PO STA (07:14)
[2019-04-23] MEDS ORDERED: CHERRY SYRUP 10 ML UDC PO ONE (07:14)
[2019-04-23 07:16] VITALS: BP 135/78
== END 2019-04-23 07:40 | disposition home or self-care (01) ==
LOC: ED 05:39
DX: J02.0 Streptococcal pharyngitis (principal); J45.909 Unspecified asthma, uncomplicated; F17.200 Nicotine dependence, unspecified, uncomplicated; I10 Essential (primary) hypertension; E11.9 Type 2 diabetes mellitus without complications; Z79.4 Long term (current) use of insulin
CPT/HCPCS: 87430; 99283; 99284; A9270

== ENCOUNTER 2019-05-01 08:00 | Outpatient (CLI) | payer MEDICAID | END 2019-05-01 23:59 | disposition home or self-care (01) | LOC: LAB.N 08:00 | PROVIDERS: ATTEND Physician Assistant Medical | DX: E11.9 Type 2 diabetes mellitus without complications (principal); J02.9 Acute pharyngitis, unspecified | CPT/HCPCS: 87070; 87077 ==

== ENCOUNTER 2019-05-31 15:18 | Outpatient (CLI) | payer MEDICAID ==
[2019-05-31 16:20] VITALS: BP 104/68
--- NOTE | 2019-05-31 16:20 | SLEEP CARE CONSULTATION ---
Information from patient questionnaire entered by Rosario Miguel. I have reviewed and concur with the information entered by Rosario Miguel. This document represents the service I personally performed and the decisions made by me, Mili Chi, RN, MSN, CUSTOMER MANAGER. History of Present Illness Previous diagnosis: Mild, Obstructive Sleep Apnea-Hypopnea Syndrome AHI: 11.9 Reason for CPAP/BiPAP follow up: other (6 week) Equipment type: CPAP Equipment obtained from: [facility] (difficulty getting supplies as noted in HPI) Mask style: Full face Mask brand: Resmed Backup mask available: No Last cushion change: ? October due to difficulty getting supplies HPI additional information: At last visit, she was promised that her supplies would be ready after leaving here but was called to say there was an issue but would be ready at end of day. 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 She came in to office and had the new prescription sent and still no supplies. Thus patient decided to transfer and a DWO was made and sent. I just received confirmation fax from [employer] for supplies and signed to be faxed later. She has since worked hard on improving compliance so transfer could be completed. CPAP Compliance Data - Data Reviewed with Patient Average duration of nightly device use: 6.45 Compliance rate %: 96.7 Current pressure setting (cmH2O): 8-12 Humidity settin Heated hose settin Average residual AHI: 0.3 Average large leak: 5 mins 36 secs Subjective Patient concerns: reports: mask discomfort (some discomfort is tightening for mask leaks), air blowing in eyes (every night), mask leak noise (intermittently), nasal congestion (mild and does not interfere with CPAP use ). denies: aerophagia, condensation in mask/hose, dry mouth, nose, throat, epistaxis Observed to snore while using device: No (sleeps alone ) Current pressure setting perceived as: comfortable On therapy, patient: reports: sleeping better, awakening more refreshed, being more awake and alert during the day, more rested overall, drowsiness while driving (fatigue but not falling asleep after meals - working on getting blood sugar better controlled. ) Initial [place] Sleepiness Scale score: 16 Current [place] Sleepiness Scale score: 13 Allergies and Home Medications Known drug allergies: Yes (penicillin) Home medication list reviewed: Yes Allergy and home medication list: Medication List Medication Name (generic/name brand) Strength & Dosage Metformin HCL 1000mg tab one twice daily Albuterol Sulfate 0.083% One ampule in nebulizer q4 hrs PRN ProAir HFA 108 (90 base) mcg/act 2 puffs Q4hrs as needed Voltaren % Transdermal Gel 2grams topically as directed for pain Victoza 1.8mg Humalog Kwikpen 200unit/ml SQ Solution Sliding Scale as directed Trazadone 2 tablets of unknown dose HS. Abilify 10mg one daily Lexapro 5mg one daily Tylenol 325mg tab two three times daily as needed progesterone and estogen both daily of unknown dose Allergy List Penicillin Review of Systems Review of systems same as previous: Yes Physical Exam Blood Pressure: 104/68 Cuff size: long Heart Rate: 91 O2 Saturation: 97 Height: 5 ft 6 in Weight (kg): 109.86 kg Body Mass Index: 39.1 BMI Classification: Class 2 Impression and Plan 1. Obstructive Sleep Apnea-Hypopnea Syndrome, mild, with good treatment compliance and good apnea control. On CPAP therapy, the patient has better sleep quality and is more rested overall. Patient has improved compliance and CPAP use significantly from 47% to 97%. Thus now her transfer to a new company can be completed. As noted, the process was started to transfer to [employer] and signed off today due to difficulty getting supplies from [employer]. She is advised to contact [employer] to order her supplies. It seems all supplies need to be replaced. Until then for mask discomfort, she is to loosen the mask slightly to comfort but still controlling mask leaks. For her relationship problems, she is to continue working with counselor that she reports benefit with treatment. She has gained some weight and states that she is working on losing when I reminded her of her weight relationship to her CPAP pressure. Patient's apnea severity and rationale for treatment to reduce apnea, improve sleep quality and reduce cardiovascular and cerebrovascular events was reviewed. I also reviewed the benefit of consistent device use of CPAP for hypertension, diabetes, gastric reflux, depression/anxiety. * Continue CPAP pressure at [id number] * Transfer to [employer] * Update all supplies * Notify me if snoring with mask or feeling that the pressure is too much or too little * Attempt to lose weight * Return for follow up in 3 months , or sooner if concerns arise I spent 100% of this 27 minute visit face to face with the patient with greater than 50% of this was spent time counseling the patient and coordination of care.
== END 2019-05-31 15:19 | disposition home or self-care (01) ==
LOC: SC 15:18
PROVIDERS: ATTEND Nurse Practitioner Family
DX: G47.33 Obstructive sleep apnea (adult) (pediatric) (principal)
CPT/HCPCS: 99212; 99214

== ENCOUNTER 2019-09-06 08:12 | Outpatient (CLI) | payer MEDICAID ==
[2019-09-06 12:22] LABS: BASOPHILS # (AUTO) 0.1 10^3/uL (0.0-0.1); BASOPHILS % (AUTO) 0.6 %; EOSINOPHILS # (AUTO) 0.5 10^3/uL (0.0-0.7); HGB - HEMOGLOBIN 14.2 g/dL (12.0-16.0); LYMPHOCYTES # (AUTO) 2.1 10^3/uL (1.5-3.5); LYMPHOCYTES % (AUTO) 19.5 %; MEAN CORPUSCULAR HEMOGLOBIN 31.1 pg (27.0-31.0); MEAN CORPUSCULAR HGB CONC 32.9 g/dL (32.0-36.0); MEAN CORPUSCULAR VOLUME 94.7 fL (81.0-99.0); MEAN PLATELET VOLUME 9.7 fL (7.9-10.8); MONOCYTES # (AUTO) 0.8 10^3/uL (0.0-1.0); MONOCYTES % (AUTO) 7.1 %; NEUTROPHILS # (AUTO) 7.4 10^3/uL (1.5-6.6); NEUTROPHILS % (AUTO) 67.3 %; PLT - PLATELET COUNT 349 10^3/uL (130-450); RED BLOOD COUNT 4.56 10^6/uL (4.20-5.40); RED CELL DISTRIBUTION WIDTH 13.2 % (12.0-15.0); WHITE BLOOD COUNT 10.9 x10^3/uL (4.8-10.8)
[2019-09-06 12:33] LABS: CALCIUM 8.7 mg/dL (8.5-10.3); CREATININE 0.7 mg/dL (0.4-1.0)
[2019-09-06 12:58] LABS: HB2 TOTAL 14.1 g/dL; HEMOGLOBIN A1C 0.53 g/dL; HEMOGLOBIN A1C % 5.6 % (4.6-6.2)
== END 2019-09-06 23:59 | disposition home or self-care (01) ==
LOC: LAB.N 08:12
PROVIDERS: ATTEND Physician Assistant Medical
DX: E11.9 Type 2 diabetes mellitus without complications (principal)
CPT/HCPCS: 36415; 80048; 83036; 84443; 85025

== ENCOUNTER 2019-10-12 11:37 | Outpatient (CLI) | payer MEDICAID ==
[2019-10-12 19:05] LABS: CALCIUM 8.5 mg/dL (8.5-10.3); CREATININE 0.7 mg/dL (0.4-1.0)
[2019-10-12 19:08] LABS: HB2 TOTAL 15.3 g/dL; HEMOGLOBIN A1C 0.63 g/dL; HEMOGLOBIN A1C % 5.9 % (4.6-6.2)
[2019-10-12 19:11] LABS: CREATININE,URINE 182.7 mg/dL; MICROALBUM/CREATININE RATIO,UR 4.4 ug/mg (<30.0); MICROALBUMIN,URINE 0.8 mg/dL (0-300.0)
== END 2019-10-12 23:59 | disposition home or self-care (01) ==
LOC: LAB.N 11:37
PROVIDERS: ATTEND Physician Assistant Medical
DX: E11.40 Type 2 diabetes mellitus with diabetic neuropathy, unspecified (principal)
CPT/HCPCS: 36415; 80048; 82043; 82570; 83036

== ENCOUNTER 2019-12-02 22:39 | Emergency (ER) | payer MEDICAID ==
[2019-12-02 22:53] VITALS: BP 110/66
[2019-12-02 23:04] LABS: RAPID STREP SCREEN Negative (Negative)
--- NOTE | 2019-12-03 01:06 | ED Physician Documentation ---
PD HPI HEENT - Stated complaint Stated Complaint: SWOLLEN THROAT,BODY ACHES - Chief complaint Chief Complaint: Heent - History obtained from History obtained from: Patient - History of Present Illness Timing - onset: Today Timing - details: Abrupt onset Pain level now: 6 Location: Right ear, Left ear, Throat Improves: Nothing Worsens: Swalllowing Associated symptoms: Headache Recently seen: Not recently seen - Additional information Additional information: c/o sore throat, swelling. my ears are hurting and my whole body hurts since this afternoon Review of Systems Constitutional: reports: Chills, Myalgias, Fatigue, Sweats Ears: reports: Ear pain Throat: reports: Sore throat Respiratory: reports: Reviewed and negative GI: reports: Reviewed and negative PD PAST MEDICAL HISTORY - Past Medical History Cardiovascular: Hypertension, High cholesterol Respiratory: Asthma, Sleep apnea, CPAP use Endocrine/Autoimmune: Type 2 diabetes GI: GERD : None HEENT: Chronic vision loss Psych: Depression, Anxiety, Bipolar disorder, Panic attacks, Post traumatic stress disorder, Other Musculoskeletal: Osteoarthritis, Fibromyalgia Derm: Psoriasis - Past Surgical History Past Surgical History: Yes General: EGD Ortho: Carpal Tunnel surgery - Present Medications Home Medications: Ambulatory Orders Medication Instructions Recorded Confirmed Trazodone HCl 100 mg PO QPM 02/07/19 02/15/19 Acetaminophen [Tylenol] 650 mg PO Q6H PRN 04/06/19 04/06/19 Albuterol Sulfate 1.25 mg IH Q4HR PRN 04/06/19 04/06/19 Albuterol Sulfate [Proair Hfa 2 puffs ORAL Q4HR PRN 04/06/19 04/06/19 Inhaler] Aripiprazole [Abilify] 1 tab ORAL DAILY 04/06/19 04/06/19 Diclofenac Sodium [Voltaren] 2 gm TOP PRN PRN 04/06/19 04/06/19 Escitalopram Oxalate [Lexapro] 5 mg PO DAILY 04/06/19 04/06/19 Insulin Lispro [Humalog Kwikpen 04/06/19 U-200] Insulin Lispro [Humalog Kwikpen SQ 04/06/19 U-200] Liraglutide [Victoza 2-Erick] 1.8 mg SQ DAILY 04/06/19 04/06/19 Metformin HCl 1,000 mg PO BID 04/06/19 04/06/19 Trazodone HCl 2 tab PO QPM 04/06/19 04/06/19 Azithromycin [Zithromax] 250 mg PO DAILY #6 tablet 04/23/19 Hydrocodone/Acetaminophen 1 - 2 each PO Q6H PRN #8 tablet 04/23/19 [Hydrocodon-Acetaminophen 5-325] Azithromycin [Zithromax] 250 mg PO DAILY #4 tablet 12/03/19 - Allergies Allergies/Adverse Reactions: Allergies Allergy/AdvReac Type Severity Reaction Status Date / Time Penicillins Allergy Hives Verified 12/02/19 22:52 - Social History Does the pt smoke?: Yes Smoking Status: Current every day smoker Does the pt drink ETOH?: No Does the pt have substance abuse?: Yes - Immunizations Immunizations are current?: Yes - POLST Patient has POLST: No PD ED PE NORMAL - Vitals Vital signs reviewed: Yes - General General: Alert and oriented X 3, No acute distress, Well developed/nourished - Neck Neck: Supple, no meningeal sign - Respiratory Respiratory: No respiratory distress, Clear bilaterally PD ED PE EXPANDED - HEENT HEENT: R TM dull, L TM dull, Pharyngeal erythema, Tonsillar exudate Results - Vitals Vitals: Oxygen O2 Source Room air - Labs Labs: Microbiology 12/02/19 22:55 Group A Strep Throat Culture - Final Throat Beta Hemolytic Strep Group A Laboratory Tests 12/02/19 22:55 Group A Strep Rapid Negative PD MEDICAL DECISION MAKING - ED course Complexity details: reviewed results, considered differential, d/w patient ED course: rapid strep negative; will treat empirically for strep, as H+P is strongly s/o strep pharyngitis Departure - Departure Disposition: 01 Home, Self Care Clinical Impression: Pharyngitis Qualifiers: Pharyngitis/tonsillitis etiology: unspecified etiology Qualified Code(s): J02.9 - Acute pharyngitis, unspecified Condition: Good Instructions: ED Strep Pharyngitis Poss Follow-Up: Alejandro Pandya PA-C [Primary Care Provider] - Prescriptions: Azithromycin [Zithromax] 250 mg PO DAILY #4 tablet Forms: Activity restrictions Discharge Date/Time: 12/03/19 01:29
[2019-12-03] MEDS ORDERED: CHERRY SYRUP 10 ML UDC PO ONE (01:21)
[2019-12-03] MEDS ORDERED: IBUPROFEN 600 MG TABLET PO STA (01:21)
[2019-12-03] MEDS ORDERED: DEXAMETHASONE 10 MG/ML VIAL PO STA (01:21)
[2019-12-03] MEDS ORDERED: AZITHROMYCIN 250 MG TABLET PO STA (01:22)
== END 2019-12-03 01:29 | disposition home or self-care (01) ==
LOC: ED 22:39
DX: J02.9 Acute pharyngitis, unspecified (principal); I10 Essential (primary) hypertension; E11.9 Type 2 diabetes mellitus without complications; F17.200 Nicotine dependence, unspecified, uncomplicated; Z79.4 Long term (current) use of insulin
CPT/HCPCS: 87070; 87077; 87430; 99283; A9270

== ENCOUNTER 2019-12-09 22:17 | Emergency (ER) | payer MEDICAID ==
[2019-12-09 22:27] VITALS: BP 144/72
[2019-12-09] MEDS ORDERED: IBUPROFEN 600 MG TABLET PO STA (22:51)
[2019-12-09] MEDS ORDERED: ACETAMINOPHEN 325 MG TABLET PO STA (22:51)
--- NOTE | 2019-12-09 22:58 | ED Physician Documentation ---
History of Present Illness - Stated complaint Stated Complaint: FLU SX - Chief complaint Chief Complaint: Fever - Additonal information Additional information: Patient comes emergency department complaining of feeling unwell. She states that she was diagnosed withThroat last week and just finished her antibiotic course. She states that she now has nasal congestion and body aches. She states she still has a little bit of a sore throat but it is much better than it was. She states her asthma has been acting up and she has a cough. Patient does smoke. 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 The patient states that her plant operator/shift supervisor has threatened to fire her if she does not come to work. She states she supposed to work a double shift again for the next 2 days. Patient denies any fevers. No other complaints at this time. Review of Systems Ten Systems: 10 systems reviewed and negative Constitutional: reports: Myalgias, Reviewed and negative Eyes: reports: Reviewed and negative Ears: reports: Reviewed and negative Nose: reports: Reviewed and negative Throat: reports: Reviewed and negative Cardiac: reports: Reviewed and negative Respiratory: reports: Reviewed and negative GI: reports: Reviewed and negative : reports: Reviewed and negative Skin: reports: Reviewed and negative Musculoskeletal: reports: Reviewed and negative Neurologic: reports: Reviewed and negative Psychiatric: reports: Reviewed and negative Endocrine: reports: Reviewed and negative Immunocompromised: reports: Reviewed and negative PD PAST MEDICAL HISTORY - Past Medical History Cardiovascular: Hypertension, High cholesterol Respiratory: Asthma, Sleep apnea, CPAP use Endocrine/Autoimmune: Type 2 diabetes GI: GERD : None HEENT: Chronic vision loss Psych: Depression, Anxiety, Bipolar disorder, Panic attacks, Post traumatic stress disorder, Other Musculoskeletal: Osteoarthritis, Fibromyalgia Derm: Psoriasis - Past Surgical History Past Surgical History: Yes General: EGD Ortho: Carpal Tunnel surgery - Present Medications Home Medications: Ambulatory Orders Medication Instructions Recorded Confirmed Trazodone HCl 100 mg PO QPM 02/07/19 02/15/19 Acetaminophen [Tylenol] 650 mg PO Q6H PRN 04/06/19 04/06/19 Albuterol Sulfate 1.25 mg IH Q4HR PRN 04/06/19 04/06/19 Albuterol Sulfate [Proair Hfa 2 puffs ORAL Q4HR PRN 04/06/19 04/06/19 Inhaler] Aripiprazole [Abilify] 1 tab ORAL DAILY 04/06/19 04/06/19 Diclofenac Sodium [Voltaren] 2 gm TOP PRN PRN 04/06/19 04/06/19 Escitalopram Oxalate [Lexapro] 5 mg PO DAILY 04/06/19 04/06/19 Insulin Lispro [Humalog Kwikpen 04/06/19 U-200] Insulin Lispro [Humalog Kwikpen SQ 04/06/19 U-200] Liraglutide [Victoza 2-Erick] 1.8 mg SQ DAILY 04/06/19 04/06/19 Metformin HCl 1,000 mg PO BID 04/06/19 04/06/19 Trazodone HCl 2 tab PO QPM 04/06/19 04/06/19 Azithromycin [Zithromax] 250 mg PO DAILY #6 tablet 04/23/19 Hydrocodone/Acetaminophen 1 - 2 each PO Q6H PRN #8 tablet 04/23/19 [Hydrocodon-Acetaminophen 5-325] Azithromycin [Zithromax] 250 mg PO DAILY #4 tablet 12/03/19 - Allergies Allergies/Adverse Reactions: Allergies Allergy/AdvReac Type Severity Reaction Status Date / Time Penicillins Allergy Hives Verified 12/02/19 22:52 - Social History Does the pt smoke?: Yes Smoking Status: Current every day smoker Does the pt drink ETOH?: No Does the pt have substance abuse?: Yes - Immunizations Immunizations are current?: Yes - POLST Patient has POLST: No Results - Vitals Vitals: Vital Signs - 24 hr 12/09/19 22:23 Temperature 36.7 C Heart Rate 101 H Respiratory 22 Rate Blood Pressure 144/72 H O2 Saturation 99 Oxygen O2 Source Room air - Labs Labs: Laboratory Tests 12/09/19 22:27 Influenza A (Rapid) Negative Influenza B (Rapid) Negative PD MEDICAL DECISION MAKING - ED course Complexity details: reviewed old records, reviewed results, re-evaluated patient, considered differential, d/w patient ED course: The patient was worked up with influenza testing in the emergency department, which was found to be negative. I discussed with her that at this point, she most likely has 1 of the many common viruses that go around this time of year. Additionally, she has not been getting much rest and has been working long stressful hours and this likely has not helped her health situation. Furthermore, she smokes which also is not good for her baseline health. We have discussed that it would be good for her to take 2 or 3 days off of work and get rest. We discussed home management and symptoms, as well as the usual indications for return.I will give her a work note. There is really no further treatment, other than [id number] remedies, which I can prescribe to help her.We have discussed home management of the symptoms, as well as the usual indications for return. Departure - Departure Disposition: 01 Home, Self Care Clinical Impression: Viral URI with cough Condition: Fair Instructions: ED Viral Syndrome Forms: Activity restrictions Discharge Date/Time: 12/09/19 23:09
== END 2019-12-09 23:09 | disposition home or self-care (01) ==
LOC: ED 22:17
DX: J06.9 Acute upper respiratory infection, unspecified (principal); I10 Essential (primary) hypertension; E11.9 Type 2 diabetes mellitus without complications; F17.200 Nicotine dependence, unspecified, uncomplicated; Z79.4 Long term (current) use of insulin
CPT/HCPCS: 87275; 87276; 99283; A9270

== ENCOUNTER 2020-02-08 15:06 | Outpatient (CLI) | payer MEDICAID ==
--- NOTE | 2020-02-08 14:40 | SLEEP CARE CONSULTATION ---
Information from patient questionnaire entered by Daimond Boss. I have reviewed and concur with the information entered by Diamond Boss. This document represents the service I personally performed and the decisions made by me, Mili Chi, RN, MSN, [employer]. History of Present Illness Service Date and Time: 02/08/2020 1400 Previous diagnosis: Mild, Obstructive Sleep Apnea-Hypopnea Syndrome AHI: 11.9 Reason for follow up: other (2 month with pressure change) Equipment type: CPAP Equipment obtained from: [employer] (getting supplies as needed) Mask style: Full face (scheduled mask fitting today for a nasal mask) Backup mask available: Yes (old spare) Last cushion change: 2 weeks ago CPAP Compliance Data - Data Reviewed with Patient Average duration of nightly device use: 5h 56m Compliance rate %: 80 Current pressure setting (cmH2O): 8-12 Humidity settin Average residual AHI: 0.9 Average large leak: 5s Subjective Patient concerns: reports: other (drooling into mask / drooling started years ago with use of Ambien and continued after stopped ). denies: aerophagia, mask discomfort, air blowing in eyes, mask leak noise (none after mask cushion replaced due to rip ), condensation in mask/hose, nasal congestion, dry mouth, nose, throat, epistaxis Observed to snore while using device: Yes (slight) Current pressure setting perceived as: comfortable On therapy, patient: reports: sleeping better, awakening more refreshed, being more awake and alert during the day, more rested overall, other. denies: drowsiness while driving Initial Emerson Sleepiness Scale score: 16 Allergies and Home Medications Home medication list reviewed: No (changes : Victoza medication reduced to 1.2 / AIC better) Review of Systems Review of systems same as previous: Yes Physical Exam Height: 5 ft 6 in (feels like has gained / no scale) Impression and Plan 1. Obstructive Sleep Apnea-Hypopnea Syndrome, mild, with good treatment compliance and good apnea control. On CPAP therapy, the patient has better sleep quality and is more rested overall. However, she is snoring that could be due to recent weight gain after losing her job. She has since been hired elsewhere to start soon. 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 Thus I will increase her auto CPAP pressure to [id number]. She is to contact me if snoring not resolved or uncomfortable. She has just ordered a new mask from [employer] now that her insurance is reinstated. She wants to try a nasal mask due to drooling in her full face mask even at high humidity setting. She was advised to also consider a chinstrap to remind her to keep her mouth closed for the first few months. In addition, if the mask is not working to contact [employer] right away so it can be exchanged. Patient has gained weight. She is unsure how much as she does not have a scale but her clothes are tighter. Currently patients BMI is 43.5 obesity class . Obesity increases the risk of apnea, CPAP pressure requirements and overall health risks especially cardiovascular and diabetes. Thus patient is advised to lose weight. Weight loss can be done with reducing portion size, reducing refined foods and balancing content with vegetables, fruit and protein. In addition tracking food intake will allow awareness of how to modify diet to achieve weight loss goals. Also eating more slowly will allow more awareness of food intake and enjoyment of food while assisting patient to modify intake at each meal. A diet consultation can be helpful in achieving optimal weight loss goals. Patient encouraged to discuss their weight loss goals with their PCP and consider a referral to a barrel assembler helper. The patient's CPAP pressure range should accommodate some weight loss. Symptoms to report for additional pressure adjustment discussed. I also advised her to strive for a minimum of 7 hours of sleep as insufficient sleep of less than 5-6 hours can also contribute to health risks. Patient's apnea severity and rationale for treatment to reduce apnea, improve sleep quality and reduce hypertension , cardiovascular and cerebrovascular events was reviewed. I also reviewed the benefit of consistent device use of for diabetes. 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 * Change auto CPAP pressure to 10-14 cmH2O * Chin strap with new nasal mask * Notify me if snoring with mask or feeling that the pressure is too much or too little * Attempt to lose weight * Send Coping with Shift work pamphlet. Call this office if any problems using CPAP * Return for follow up in 6 months , or sooner if concerns arise Visit Type: Telehealth Video (to minimize risk of Covid 19 exposure) Video Type: 21GRAMS Patient Location: car Other Participants: Spouse/Significant Other Location of Provider: Home Patient agrees and consents to this telehealth visit type: Yes Patient agrees to have their insurance billed: Yes Time Spent with Patient (minutes): 21 Provider Statement: I spent 100% of the Telehealth Video Call with the patient with greater than 50% spent counseling the patient and coordination of care.
== END 2020-02-08 15:07 | disposition home or self-care (01) ==
LOC: SC 15:06
PROVIDERS: ATTEND Nurse Practitioner Family
DX: G47.33 Obstructive sleep apnea (adult) (pediatric) (principal)

== ENCOUNTER 2020-02-21 13:00 | Outpatient (CLI) | payer MEDICAID ==
[2020-02-21 18:04] LABS: BASOPHILS % (AUTO) 0.5 %; EOSINOPHILS # (AUTO) 0.5 10^3/uL (0.0-0.7); EOSINOPHILS % (AUTO) 5.2 %; HGB - HEMOGLOBIN 13.9 g/dL (12.0-16.0); LYMPHOCYTES # (AUTO) 1.9 10^3/uL (1.5-3.5); LYMPHOCYTES % (AUTO) 21.6 %; MEAN CORPUSCULAR HEMOGLOBIN 30.5 pg (27.0-31.0); MEAN CORPUSCULAR HGB CONC 32.4 g/dL (32.0-36.0); MEAN CORPUSCULAR VOLUME 94.1 fL (81.0-99.0); MEAN PLATELET VOLUME 10.2 fL (7.9-10.8); MONOCYTES # (AUTO) 0.7 10^3/uL (0.0-1.0); NEUTROPHILS # (AUTO) 5.6 10^3/uL (1.5-6.6); NEUTROPHILS % (AUTO) 64.5 %; PLT - PLATELET COUNT 317 10^3/uL (130-450); RED BLOOD COUNT 4.56 10^6/uL (4.20-5.40); RED CELL DISTRIBUTION WIDTH 12.6 % (12.0-15.0); WHITE BLOOD COUNT 8.6 x10^3/uL (4.8-10.8)
[2020-02-21 18:16] LABS: ALBUMIN 3.7 g/dL (3.2-5.5); ALBUMIN/GLOBULIN RATIO 1.2 (1.0-2.2); BILIRUBIN,TOTAL 0.6 mg/dL (0.2-1.0); CALCIUM 9.1 mg/dL (8.5-10.3); CREATININE 0.6 mg/dL (0.4-1.0); MAGNESIUM 2.1 mg/dL (1.7-2.8); TOTAL PROTEIN 6.8 g/dL (6.7-8.2)
== END 2020-02-21 23:59 | disposition home or self-care (01) ==
LOC: LAB.WCP 13:00
PROVIDERS: ATTEND Physician Assistant Medical
DX: R00.2 Palpitations (principal)
CPT/HCPCS: 36415; 80048; 80053; 83735; 84443; 85025

== ENCOUNTER 2020-03-03 00:03 | Outpatient (CLI) | payer MEDICAID | END 2020-03-03 00:04 | disposition EMS.NT | LOC: EMS 00:03 | PROVIDERS: ATTEND Surgery | DX: R00.2 Palpitations (principal); R42 Dizziness and giddiness ==

== ENCOUNTER 2020-03-08 13:15 | Outpatient (CLI) | payer MEDICAID | END 2020-03-08 13:16 | disposition home or self-care (01) | LOC: DI 13:15 | PROVIDERS: ATTEND Family Medicine | DX: R00.2 Palpitations (principal) | CPT/HCPCS: 93306 ==

== ENCOUNTER 2020-04-21 16:50 | Emergency (ER) | payer MEDICAID ==
[2020-04-21] MEDS ORDERED: SODIUM CHLORIDE 0.9% 1,000 ML IV STA (17:19)
[2020-04-21] MEDS ORDERED: LIDOCAINE-MPF 2% 10 ML in SODIUM CHLORIDE 0.9% 50 ML IV STA (17:19)
[2020-04-21] MEDS ORDERED: KETOROLAC 30 MG/ML VIAL IVP STA (17:19)
[2020-04-21 17:23] LABS: BILIRUBIN,URINE NEGATIVE (NEGATIVE); GLUCOSE, URINE (UA) NEGATIVE (NEGATIVE); KETONES,URINE (UA) NEGATIVE (NEGATIVE); LEUKOCYTE ESTERASE, URINE NEGATIVE (NEGATIVE); NITRITE,URINE NEGATIVE (NEGATIVE); OCCULT BLOOD,URINE LARGE (NEGATIVE); PH,URINE 7.5 PH (5.0-7.5); PROTEIN,URINE NEGATIVE (NEGATIVE); UROBILINOGEN,URINE 0.2 (NORMAL) E.U./dL (NORMAL)
[2020-04-21 17:26] LABS: CLARITY,URINE HAZY (CLEAR); HCG UR QUAL NEGATIVE
--- NOTE | 2020-04-21 17:26 | ED Physician Documentation ---
History of Present Illness - Stated complaint Stated Complaint: FEM /BACK PX - Chief complaint Chief Complaint: Abd Pain - History obtained from History obtained from: Patient - History of Present Illness Timing: Today Pain level max: 8 Pain level now: 8 - Additonal information Additional information: 39-year-old female presents to the emergency department left flank pain. She describes it as sharp, radiating into her groin. Had hematuria after the pain started. Has a history of renal stones. States that this feels similar. Has never needed lithotripsy or removal. No fevers. No nausea or vomiting. Denies any possibility of . She is not breast-feeding. Has not taken anything for the pain. No vaginal bleeding or discharge. No diarrhea. 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 : None HEENT: Chronic vision loss Psych: Depression, Anxiety, Bipolar disorder, Panic attacks, Post traumatic stress disorder, Other Musculoskeletal: Osteoarthritis, Fibromyalgia Derm: Psoriasis - Past Surgical History Past Surgical History: Yes General: EGD Ortho: Carpal Tunnel surgery - Present Medications Home Medications: Ambulatory Orders Medication Instructions Recorded Confirmed Trazodone HCl 100 mg PO QPM 02/07/19 02/15/19 Acetaminophen [Tylenol] 650 mg PO Q6H PRN 04/06/19 04/06/19 Albuterol Sulfate 1.25 mg IH Q4HR PRN 04/06/19 04/06/19 Albuterol Sulfate [Proair Hfa 2 puffs ORAL Q4HR PRN 04/06/19 04/06/19 Inhaler] Aripiprazole [Abilify] 1 tab ORAL DAILY 04/06/19 04/06/19 Diclofenac Sodium [Voltaren] 2 gm TOP PRN PRN 04/06/19 04/06/19 Escitalopram Oxalate [Lexapro] 5 mg PO DAILY 04/06/19 04/06/19 Insulin Lispro [Humalog Kwikpen 04/06/19 U-200] Insulin Lispro [Humalog Kwikpen SQ 04/06/19 U-200] Liraglutide [Victoza 2-Erick] 1.8 mg SQ DAILY 04/06/19 04/06/19 Metformin HCl 1,000 mg PO BID 04/06/19 04/06/19 Trazodone HCl 2 tab PO QPM 04/06/19 04/06/19 Azithromycin [Zithromax] 250 mg PO DAILY #6 tablet 04/23/19 Hydrocodone/Acetaminophen 1 - 2 each PO Q6H PRN #8 tablet 04/23/19 [Hydrocodon-Acetaminophen 5-325] Azithromycin [Zithromax] 250 mg PO DAILY #4 tablet 12/03/19 Hydrocodone/Acetaminophen 1 - 2 each PO Q6H PRN #14 tablet 04/21/20 [Hydrocodon-Acetaminophen 5-325] Ibuprofen [Motrin] 800 mg PO Q8H PRN #30 tablet 04/21/20 - Allergies Allergies/Adverse Reactions: Allergies Allergy/AdvReac Type Severity Reaction Status Date / Time Penicillins Allergy Hives Verified 12/02/19 22:52 - Social History Does the pt smoke?: Yes Smoking Status: Current every day smoker Does the pt drink ETOH?: No Does the pt have substance abuse?: Yes - Immunizations Immunizations are current?: Yes - POLST Patient has POLST: No PD ED PE NORMAL - Vitals Vital signs reviewed: Yes - General General: Alert and oriented X 3, No acute distress, Other (Obese female) - HEENT HEENT: PERRL, Moist mucous membranes - Neck Neck: Supple, no meningeal sign - Cardiac Cardiac: RRR, Strong equal pulses - Respiratory Respiratory: No respiratory distress, Clear bilaterally - Abdomen Abdomen: Normal bowel sounds, Soft, Non tender, Non distended - Back Back: No CVA TTP, No spinal TTP - Derm Derm: Warm and dry - Extremities Extremities: No calf tenderness / cord - Neuro Neuro: Alert and oriented X 3 - Psych Psych: Normal mood, Normal affect Results - Vitals Vitals: Vital Signs - 24 hr 04/21/20 04/21/20 04/21/20 16:56 17:38 18:35 Temperature 36.7 C Heart Rate 98 90 88 Respiratory 21 16 16 Rate Blood Pressure 136/100 H 127/83 H 141/88 H O2 Saturation 100 98 99 Oxygen O2 Source Room air - Labs Labs: Laboratory Tests 04/21/20 04/21/20 04/21/20 16:59 17:10 17:10 WBC 11.2 H RBC 4.91 Hgb 15.6 Hct 45.3 MCV 92.3 MCH 31.8 H MCHC 34.4 RDW 12.1 Plt Count 383 MPV 9.7 Neut # (Auto) 7.2 H Lymph # (Auto) 2.6 Rankin # (Auto) 0.9 Eos # (Auto) 0.4 Baso # (Auto) 0.1 Absolute Nucleated RBC 0.00 Nucleated RBC % 0.0 Sodium 136 Potassium 3.9 Chloride 99 L Carbon Dioxide 25 Anion Gap 12.0 BUN 18 Creatinine 0.8 Estimated GFR (MDRD) 80 L Glucose 113 H Calcium 9.0 Total Bilirubin 0.6 AST 15 ALT 19 Alkaline Phosphatase 52 Total Protein 7.7 Albumin 4.5 Globulin 3.2 Albumin/Globulin Ratio 1.4 Lipase 51 Urine Color YELLOW Urine Clarity HAZY Urine pH 7.5 Ur Specific Epes 1.015 Urine Protein NEGATIVE Urine Glucose (UA) NEGATIVE Urine Ketones NEGATIVE Urine Occult Blood LARGE H Urine Nitrite NEGATIVE Urine Bilirubin NEGATIVE Urine Urobilinogen 0.2 (NORMAL) Ur Leukocyte Esterase NEGATIVE Urine RBC TNTC H Urine WBC 0-3 Ur Squamous Epith Cells NONE SEEN Urine Bacteria None Seen Urine Culture Comments NOT INDICATED Urine HCG, Qual NEGATIVE - Rads (name of study) CT abdomen pelvis without contrast Radiology: Prelim report reviewed, EMP read contemporaneously, See rad report (No acute abnormality, bilateral nonobstructing nephrolithiasis) PD MEDICAL DECISION MAKING - ED course Complexity details: reviewed results, re-evaluated patient, considered differential, d/w patient ED course: Patient with what sounds like a recently passed kidney stone. Feels better after lidocaine and Toradol. Will prescribe pain medication for home in case her pain returns. She is well-appearing, nontoxic. Afebrile. No UTI. No indication for antibiotics. Patient counseled regarding signs and symptoms for which I believe and urgent re-evaluation would be necessary. Patient with good understanding of and agreement to plan and is comfortable going home at this time This document was made in part using voice recognition software. While efforts are made to proofread this document, sound alike and grammatical errors may occur. Departure - Departure Disposition: 01 Home, Self Care Clinical Impression: Flank pain, Renal stones Condition: Good Instructions: ED Stone Renal W Colic Follow-Up: Teena Browning DO [Primary Care Provider] - Within 1 week Prescriptions: Hydrocodone/Acetaminophen [Hydrocodon-Acetaminophen 5-325] 1 - 2 each PO Q6H PRN #14 tablet PRN Reason: pain Ibuprofen [Motrin] 800 mg PO Q8H PRN #30 tablet PRN Reason: PAIN &/OR FEVER Comments: It appears likely that you passed a small kidney stone today. You do have stones in your kidneys still, but none in the ureter on CT scan. You do have blood in your urine that is consistent with a kidney stone. No evidence of infection. Use the medication as needed. Return if you worsen. Do not drink alcohol or drive while on narcotic pain medicine. Note that many narcotic pain relievers also contain tylenol/acetaminophen. Please ensure that your total dose of acetaminophen from all sources does not exceed 3 grams (3000mg) per day. You may constipated on this medication, take a stool softener such as "Colace" twice a day while you are on it. Also recommend a rxiw-vbf-[id number] laxative such as senna or MiraLAX any day that you do not have a bowel movement. If you received narcotic pain medication in the emergency department, do not drive or operate machinery for the next 24 hours.
[2020-04-21 17:28] LABS: BASOPHILS # (AUTO) 0.1 10^3/uL (0.0-0.1); BASOPHILS % (AUTO) 0.6 %; EOSINOPHILS # (AUTO) 0.4 10^3/uL (0.0-0.7); EOSINOPHILS % (AUTO) 3.8 %; HGB - HEMOGLOBIN 15.6 g/dL (12.0-16.0); LYMPHOCYTES # (AUTO) 2.6 10^3/uL (1.5-3.5); LYMPHOCYTES % (AUTO) 22.9 %; MEAN CORPUSCULAR HEMOGLOBIN 31.8 pg (27.0-31.0); MEAN CORPUSCULAR HGB CONC 34.4 g/dL (32.0-36.0); MEAN CORPUSCULAR VOLUME 92.3 fL (81.0-99.0); MEAN PLATELET VOLUME 9.7 fL (7.9-10.8); MONOCYTES # (AUTO) 0.9 10^3/uL (0.0-1.0); MONOCYTES % (AUTO) 8.3 %; NEUTROPHILS # (AUTO) 7.2 10^3/uL (1.5-6.6); PLT - PLATELET COUNT 383 10^3/uL (130-450); RED BLOOD COUNT 4.91 10^6/uL (4.20-5.40); RED CELL DISTRIBUTION WIDTH 12.1 % (12.0-15.0); WHITE BLOOD COUNT 11.2 x10^3/uL (4.8-10.8)
[2020-04-21 17:36] LABS: BACTERIA,URINE None Seen /HPF (None Seen); RBC,URINE TNTC /HPF (0-5); SQUAMOUS EPITHELIAL CELL,UR NONE SEEN (<= Few)
[2020-04-21 17:42] LABS: ALBUMIN 4.5 g/dL (3.2-5.5); ALBUMIN/GLOBULIN RATIO 1.4 (1.0-2.2); BILIRUBIN,TOTAL 0.6 mg/dL (0.2-1.0); CREATININE 0.8 mg/dL (0.4-1.0); TOTAL PROTEIN 7.7 g/dL (6.7-8.2)
[2020-04-21 18:38] VITALS: BP 141/88
--- NOTE | 2020-04-21 18:47 | CT Report ---
PROCEDURE: Abdomen/Pelvis WO INDICATIONS: L flank pain, h/o ureteral stones TECHNIQUE: Noncontrast 5 mm thick sections acquired from the diaphragms to the symphysis. 5 mm coronal and sagi ttal reformats were then performed. For radiation dose reduction, the following was used: automated exposure control, adjustment of mA and/or kV according to patient size. COMPARISON: None. FINDINGS: Image quality: Excellent. ABDOMEN: Lung bases: Lung bases are clear. Heart size is normal. Solid organs: Liver and spleen are normal in size. Gallbladder is contracted, limiting evaluation. Pancreas is normal in contours. No adrenal nodules. Kidneys are normal in size. There is a 4 mm le ft superior pole renal calcification, Hounsfield units 591. A 4 mm right superior pole calcification is present Hounsfield units 391. Punctate right inferior pole calcification is present. There is no o bstruction. Peritoneum and bowel: Unenhanced bowel loops demonstrate normal wall thickness and caliber. No free fluid or air. Colonic diverticula are present. Nodes and vessels: No retroperitoneal or mesenteric adenopathy by size criteria. Aorta and inferior vena cava are normal in caliber. Miscellaneous: No ventral hernias. PELVIS: Genitourinary: Bladder wall thickness is normal. Miscellaneous: No inguinal hernias or adenopathy. Bones: No suspicious bony lesions. No vertebral body compression fractures. IMPRESSION: 1. Bilateral nonobstructing renal calculi. No bladder or ureteral calculi are identified. Reviewed by: Alia Rosales MD on 04/21/2020 6:45 PM PDT Approved by: Alia Rosales MD on 04/21/2020 6:45 PM PDT Station ID: [id number]
[2020-04-21] MEDS ORDERED: HYDROcod/ACETAM 5/325 MG TABLET PO STA (18:57)
== END 2020-04-21 19:05 | disposition home or self-care (01) ==
LOC: ED 16:50
DX: N20.0 Calculus of kidney (principal); I10 Essential (primary) hypertension; E11.9 Type 2 diabetes mellitus without complications; Z79.4 Long term (current) use of insulin; F17.200 Nicotine dependence, unspecified, uncomplicated
CPT/HCPCS: 36415; 74176; 80053; 81001; 81025; 83690; 85025; 96365; 96375; 99284; A9270; J7040; 87086

== ENCOUNTER 2020-04-23 08:00 | Outpatient (CLI) | payer MEDICAID ==
[2020-04-23 18:46] LABS: BASOPHILS # (AUTO) 0.1 10^3/uL (0.0-0.1); BASOPHILS % (AUTO) 0.7 %; EOSINOPHILS # (AUTO) 0.5 10^3/uL (0.0-0.7); EOSINOPHILS % (AUTO) 4.9 %; HGB - HEMOGLOBIN 14.2 g/dL (12.0-16.0); LYMPHOCYTES # (AUTO) 2.1 10^3/uL (1.5-3.5); LYMPHOCYTES % (AUTO) 22.6 %; MEAN CORPUSCULAR HEMOGLOBIN 31.9 pg (27.0-31.0); MEAN CORPUSCULAR HGB CONC 32.9 g/dL (32.0-36.0); MEAN CORPUSCULAR VOLUME 97.1 fL (81.0-99.0); MEAN PLATELET VOLUME 9.9 fL (7.9-10.8); MONOCYTES # (AUTO) 0.8 10^3/uL (0.0-1.0); MONOCYTES % (AUTO) 8.3 %; NEUTROPHILS # (AUTO) 5.8 10^3/uL (1.5-6.6); NEUTROPHILS % (AUTO) 63.2 %; PLT - PLATELET COUNT 330 10^3/uL (130-450); RED BLOOD COUNT 4.45 10^6/uL (4.20-5.40); RED CELL DISTRIBUTION WIDTH 12.5 % (12.0-15.0); WHITE BLOOD COUNT 9.2 x10^3/uL (4.8-10.8)
[2020-04-23 19:26] LABS: ALBUMIN 3.8 g/dL (3.2-5.5); ALBUMIN/GLOBULIN RATIO 1.2 (1.0-2.2); ALKALINE PHOSPHATASE 48 IU/L (42-121); ALT ALANINE AMINOTRANSFERASE 22 IU/L (10-60); AST ASPARTATE AMINOTRANSFERASE 17 IU/L (10-42); BILIRUBIN,TOTAL 0.4 mg/dL (0.2-1.0); BUN - BLOOD UREA NITROGEN 16 mg/dL (6-20); CARBON DIOXIDE - CO2 27 mmol/L (21-32); CHLORIDE 104 mmol/L (101-111); CHOL/HDL RATIO 3.7 (<4.4); CHOLESTEROL 156 mg/dL; CREATININE 0.6 mg/dL (0.4-1.0); GLUCOSE 116 mg/dL (70-100); HDL CHOLESTEROL 42 mg/dL; LDL CHOLESTEROL,CALCULATED 85 mg/dL; SODIUM 138 mmol/L (135-145); TOTAL PROTEIN 6.9 g/dL (6.7-8.2); VLDL CHOLESTEROL 29 mg/dL
[2020-04-23 19:35] LABS: CREATININE,URINE 51.6 mg/dL; MICROALBUM/CREATININE RATIO,UR 11.6 ug/mg (<30.0); MICROALBUMIN,URINE 0.6 mg/dL (0-300.0)
[2020-04-23 19:51] LABS: HB2 TOTAL 14.8 g/dL; HEMOGLOBIN A1C 0.6 g/dL; HEMOGLOBIN A1C % 5.9 % (4.6-6.2)
== END 2020-04-23 23:59 | disposition home or self-care (01) ==
LOC: LAB.WCP 08:00
PROVIDERS: ATTEND Family Medicine
DX: E11.9 Type 2 diabetes mellitus without complications (principal); Z79.4 Long term (current) use of insulin
CPT/HCPCS: 36415; 80053; 80061; 82043; 82570; 83036; 83721; 84443; 85025

== ENCOUNTER 2020-05-04 22:50 | Emergency (ER) | payer MEDICAID ==
[2020-05-04 23:08] LABS: BILIRUBIN,URINE NEGATIVE (NEGATIVE); GLUCOSE, URINE (UA) NEGATIVE (NEGATIVE); KETONES,URINE (UA) NEGATIVE (NEGATIVE); LEUKOCYTE ESTERASE, URINE NEGATIVE (NEGATIVE); NITRITE,URINE NEGATIVE (NEGATIVE); OCCULT BLOOD,URINE TRACE-INTA (NEGATIVE); PH,URINE 5.5 PH (5.0-7.5); PROTEIN,URINE NEGATIVE (NEGATIVE); UROBILINOGEN,URINE 0.2 (NORMAL) E.U./dL (NORMAL)
[2020-05-04 23:09] LABS: CLARITY,URINE CLEAR (CLEAR)
[2020-05-04 23:10] LABS: HCG UR QUAL NEGATIVE
[2020-05-04 23:27] LABS: BASOPHILS # (AUTO) 0.1 10^3/uL (0.0-0.1); BASOPHILS % (AUTO) 0.5 %; EOSINOPHILS # (AUTO) 0.6 10^3/uL (0.0-0.7); HGB - HEMOGLOBIN 14.6 g/dL (12.0-16.0); LYMPHOCYTES # (AUTO) 2.8 10^3/uL (1.5-3.5); LYMPHOCYTES % (AUTO) 22.5 %; MEAN CORPUSCULAR HEMOGLOBIN 32.2 pg (27.0-31.0); MEAN CORPUSCULAR HGB CONC 34.5 g/dL (32.0-36.0); MEAN CORPUSCULAR VOLUME 93.4 fL (81.0-99.0); MEAN PLATELET VOLUME 9.7 fL (7.9-10.8); MONOCYTES # (AUTO) 0.8 10^3/uL (0.0-1.0); MONOCYTES % (AUTO) 6.7 %; NEUTROPHILS # (AUTO) 7.9 10^3/uL (1.5-6.6); NEUTROPHILS % (AUTO) 64.7 %; PLT - PLATELET COUNT 332 10^3/uL (130-450); RED BLOOD COUNT 4.53 10^6/uL (4.20-5.40); RED CELL DISTRIBUTION WIDTH 12.6 % (12.0-15.0); WHITE BLOOD COUNT 12.3 x10^3/uL (4.8-10.8)
[2020-05-04 23:39] LABS: ALBUMIN/GLOBULIN RATIO 1.3 (1.0-2.2); BILIRUBIN,TOTAL 0.8 mg/dL (0.2-1.0); CALCIUM 8.9 mg/dL (8.5-10.3); CREATININE 0.7 mg/dL (0.4-1.0); TOTAL PROTEIN 7.1 g/dL (6.7-8.2)
--- NOTE | 2020-05-05 00:25 | ED Physician Documentation ---
PD HPI ABD PAIN - Stated complaint Stated Complaint: BILAT FLANK PX - Chief complaint Chief Complaint: Abd Pain - History obtained from History obtained from: Patient - History of Present Illness Timing - onset: How many weeks ago (2) Timing - duration: Weeks Timing - details: Constant Quality: Pain Location: Other (bilateral flanks and back) Improved by: Other (nothing) Worsened by: Moving Associated symptoms: No: Fever, Nausea, Vomiting, Diarrhea, Constipation Similar symptoms before: Work up / diagnostics Recently seen: Emergency Dept - Additional information Additional information: T+R from this ED approximately 2 weeks ago for left back/flank pain, found to have bilateral nonobstructing renal stones but, given flank pain and hematuria, thought to have renal colic and thus possibly had just passed a stone. she returns due to ongoing, waxing and waning flank and back pain that is now bilateral. it is worse with movement. she tells me she passed a stone recently as evidenced by seeing what she describes as a small piece of gravel in toilet after urinating. Review of Systems Constitutional: reports: Reviewed and negative Cardiac: reports: Reviewed and negative Respiratory: reports: Reviewed and negative GI: denies: Abdominal Pain (mostly back pain, some flank pain, but no abdominal pain per se), Nausea, Vomiting, Constipation, Diarrhea : denies: Dysuria, Frequency, Hematuria, Now EGA Skin: denies: Rash Musculoskeletal: reports: Back pain PD PAST MEDICAL HISTORY - Past Medical History Past Medical History: Yes Cardiovascular: Hypertension, High cholesterol Respiratory: Asthma, Sleep apnea, CPAP use Neuro: None Endocrine/Autoimmune: Type 2 diabetes GI: GERD [employer]: None : None HEENT: Chronic vision loss Psych: Depression, Anxiety, Bipolar disorder, Panic attacks, Post traumatic stress disorder, Other Musculoskeletal: Osteoarthritis, Fibromyalgia Derm: Psoriasis - Past Surgical History Past Surgical History: Yes General: EGD Ortho: Carpal Tunnel surgery - Present Medications Home Medications: Ambulatory Orders Medication Instructions Recorded Confirmed Trazodone HCl 100 mg PO QPM 02/07/19 02/15/19 Acetaminophen [Tylenol] 650 mg PO Q6H PRN 04/06/19 04/06/19 Albuterol Sulfate 1.25 mg IH Q4HR PRN 04/06/19 04/06/19 Albuterol Sulfate [Proair Hfa 2 puffs ORAL Q4HR PRN 04/06/19 04/06/19 Inhaler] Aripiprazole [Abilify] 1 tab ORAL DAILY 04/06/19 04/06/19 Diclofenac Sodium [Voltaren] 2 gm TOP PRN PRN 04/06/19 04/06/19 Escitalopram Oxalate [Lexapro] 5 mg PO DAILY 04/06/19 04/06/19 Insulin Lispro [Humalog Kwikpen 04/06/19 U-200] Insulin Lispro [Humalog Kwikpen SQ 04/06/19 U-200] Liraglutide [Victoza 2-Erick] 1.8 mg SQ DAILY 04/06/19 04/06/19 Metformin HCl 1,000 mg PO BID 04/06/19 04/06/19 Trazodone HCl 2 tab PO QPM 04/06/19 04/06/19 Azithromycin [Zithromax] 250 mg PO DAILY #6 tablet 04/23/19 Hydrocodone/Acetaminophen 1 - 2 each PO Q6H PRN #8 tablet 04/23/19 [Hydrocodon-Acetaminophen 5-325] Azithromycin [Zithromax] 250 mg PO DAILY #4 tablet 12/03/19 Hydrocodone/Acetaminophen 1 - 2 each PO Q6H PRN #14 tablet 04/21/20 [Hydrocodon-Acetaminophen 5-325] Ibuprofen [Motrin] 800 mg PO Q8H PRN #30 tablet 04/21/20 Cyclobenzaprine [Flexeril] 10 mg PO TID PRN #20 tablet 05/05/20 HYDROcod/ACETAM 5/325 [Muse 5/325] 1 - 2 ea PO Q6H PRN #15 tablet 05/05/20 - Allergies Allergies/Adverse Reactions: Allergies Allergy/AdvReac Type Severity Reaction Status Date / Time Penicillins Allergy Hives Verified 05/04/20 22:59 - Social History Does the pt smoke?: Yes Smoking Status: Current every day smoker Does the pt drink ETOH?: No Does the pt have substance abuse?: Yes - Immunizations Immunizations are current?: Yes - POLST Patient has POLST: No PD ED PE NORMAL - Vitals Vital signs reviewed: Yes - General General: Alert and oriented X 3, No acute distress (NAD at rest, appears to have painful discomfort when moving (movement involving back)), Well developed/nourished - Cardiac Cardiac: RRR, No murmur - Respiratory Respiratory: No respiratory distress, Clear bilaterally - Abdomen Abdomen: Normal bowel sounds, Soft, Non tender, Non distended - Back Back: No CVA TTP, No spinal TTP - Derm Derm: Normal color, Warm and dry, No rash Results - Vitals Vitals: Oxygen O2 Source Room air - Labs Labs: Laboratory Tests 05/04/20 05/04/20 05/04/20 23:04 23:04 23:10 WBC 12.3 H RBC 4.53 Hgb 14.6 Hct 42.3 MCV 93.4 MCH 32.2 H MCHC 34.5 RDW 12.6 Plt Count 332 MPV 9.7 Neut # (Auto) 7.9 H Lymph # (Auto) 2.8 Coles # (Auto) 0.8 Eos # (Auto) 0.6 Baso # (Auto) 0.1 Absolute Nucleated RBC 0.00 Nucleated RBC % 0.0 Sodium Potassium Chloride Carbon Dioxide Anion Gap BUN Creatinine Estimated GFR (MDRD) Glucose Calcium Total Bilirubin AST ALT Alkaline Phosphatase Total Protein Albumin Globulin Albumin/Globulin Ratio Lipase Urine Color YELLOW Urine Clarity CLEAR Urine pH 5.5 Ur Specific [place] >=1.030 H >=1.030 H Urine Protein NEGATIVE Urine Glucose (UA) NEGATIVE Urine Ketones NEGATIVE Urine Occult Blood TRACE-INTA Urine Nitrite NEGATIVE Urine Bilirubin NEGATIVE Urine Urobilinogen 0.2 (NORMAL) Ur Leukocyte Esterase NEGATIVE Ur Microscopic Review NOT INDICATED Urine Culture Comments NOT INDICATED Urine HCG, Qual NEGATIVE 05/04/20 23:10 WBC RBC Hgb Hct MCV MCH MCHC RDW Plt Count MPV Neut # (Auto) Lymph # (Auto) Coles # (Auto) Eos # (Auto) Baso # (Auto) Absolute Nucleated RBC Nucleated RBC % Sodium 134 L Potassium 3.5 Chloride 102 Carbon Dioxide 24 Anion Gap 8.0 BUN 17 Creatinine 0.7 Estimated GFR (MDRD) 93 Glucose 140 H Calcium 8.9 Total Bilirubin 0.8 AST 16 ALT 21 Alkaline Phosphatase 51 Total Protein 7.1 Albumin 4.0 Globulin 3.1 Albumin/Globulin Ratio 1.3 Lipase 50 Urine Color Urine Clarity Urine pH Ur Specific [place] Urine Protein Urine Glucose (UA) Urine Ketones Urine Occult Blood Urine Nitrite Urine Bilirubin Urine Urobilinogen Ur Leukocyte Esterase Ur Microscopic Review Urine Culture Comments Urine HCG, Qual PD MEDICAL DECISION MAKING - ED course Complexity details: reviewed results, re-evaluated patient, considered differential, d/w patient ED course: given that the pain is bilateral on todays presentation, I suspect musculoskeletal etiology (unlikely to have simultaneous ureteral obstruction). will focus on pain control at this time, encourage follow up/return if worse, and not perform reimaging at this time. Departure - Departure Disposition: 01 Home, Self Care Clinical Impression: Back pain Condition: Good Instructions: NARCOTIC, Oral, ED Neck Back Pain General Follow-Up: Teena Browning DO [Primary Care Provider] - Within 1 week Prescriptions: Cyclobenzaprine [Flexeril] 10 mg PO TID PRN #20 tablet PRN Reason: Spasms HYDROcod/ACETAM 5/325 [Muse 5/325] 1 - 2 ea PO Q6H PRN #15 tablet PRN Reason: Pain Discharge Date/Time: 05/05/20 01:50
[2020-05-05] MEDS ORDERED: CYCLOBENZAPRINE 10 MG Prepack 2 PO STA (00:43)
[2020-05-05] MEDS ORDERED: HYDROcod/ACET 5/325 Prepack 4 PO STA (00:43)
[2020-05-05 01:29] VITALS: BP 131/83
--- NOTE | 2020-05-06 15:48 | ED Physician Documentation ---
ED Addendum - Addendum Addendum: 05/06/20 15:48 Took call from pharmacist. The accidentally initially missed fill the hydrocodone with oxycodone. The patient noticed the mistake and brought it back, there were no pills missing and the correct medication was dispensed. It is their policy to notify the physician in this case.
== END 2020-05-05 01:50 | disposition home or self-care (01) ==
LOC: ED 22:50
DX: M54.9 Dorsalgia, unspecified (principal); I10 Essential (primary) hypertension; E11.9 Type 2 diabetes mellitus without complications; F17.200 Nicotine dependence, unspecified, uncomplicated; Z79.4 Long term (current) use of insulin
CPT/HCPCS: 36415; 51798; 80053; 81001; 81003; 81025; 83690; 85025; 87086; 99283; 99284

== ENCOUNTER 2020-07-11 11:43 | Outpatient (CLI) | payer MEDICAID ==
--- NOTE | 2020-07-11 12:17 | SLEEP CARE CONSULTATION ---
Information from patient questionnaire entered by Rosario Miguel. I have reviewed and concur with the information entered by Rosario Miguel. This document represents the service I personally performed and the decisions made by me, Mili Chi, RN, MSN, REAL TIME OPERATOR. History of Present Illness Service Date and Time: 07/11/2020 1143 Previous diagnosis: Mild, Obstructive Sleep Apnea-Hypopnea Syndrome AHI: 11.9 (in 2017) Reason for follow up: six month (with recent pressure change) Equipment type: CPAP Mask style: Full face (unable to schedule for nasal mask fitting as changed mind) Backup mask available: Yes (old mask ) Last cushion change: 3 months ago Prior sleep studies: Yes Year and Where: 2017 - [facility] Type of Sleep Study: Home sleep study ([facility] with [facility]) HPI additional information: Patient called 07/01/20 for complaint of air hunger and had gained more weight. The pressure had not been changed as ordered at her January visit. So it was changed that day to [id number] and noted in data 07/03/20. This has been helpful but still not enough at first. She is not using using the ramp. She has changed her PCP group and now seeing a head correction officer for her diabetes and weight loss. 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 CPAP Compliance Data - Data Reviewed with Patient Average duration of nightly device use: 7.5 Compliance rate %: 100 (90 days) Current pressure setting (cmH2O): 10-14 Humidity settin Heated hose settin Average residual AHI: 0.3 (median pressure 12.3/ 90% pressure is 13.1cmH20) Average large leak: 1 min 37 sec Subjective Patient concerns: reports: other. denies: aerophagia, mask discomfort, air blowing in eyes, mask leak noise, condensation in mask/hose, nasal congestion, dry mouth, nose, throat, epistaxis Observed to snore while using device: Yes (occasionally ) Current pressure setting perceived as: too low (initially) On therapy, patient: reports: sleeping better (but not as rested as before). denies: drowsiness while driving (but notices fatigue a couple times a week and pulls over if needed) Initial Kill[place] Sleepiness Scale score: 16 (in 2017) Current Kill[place] Sleepiness Scale score: 10 Allergies and Home Medications Known drug allergies: Yes Home medication list reviewed: No (no changes ) Review of Systems Review of systems same as previous: Yes Physical Exam Height: 5 ft 6 in Weight: 303 lb Weight change since last visit: gained 35 pounds since last visit Body Mass Index: 48.9 BMI Classification: Morbidly Obese Impression and Plan 1. Obstructive Sleep Apnea-Hypopnea Syndrome, mild, with good treatment compliance and good apnea control. On CPAP therapy, the patient has better sleep quality but is not waking as rested as before. She is attributing this to her weight gain. She is working with a head correction officer at this time for her diabetes and weight loss. I noted she was drinking a diet soda during this visit and advised to discuss effect to weight with her head correction officer. I counseled her that s ome studies show there can be weight gain with zero calories drinks and water is a better substitute. I again reviewed the health risks for obesity and affect to her apnea and her diabetes. As she loses weight her apnea will decrease as well as her CPAP pressure requirements. Symptoms to report for further PAP pressure change discussed. For her air hunger I will adjust her autoCPAP pressure to [id number]. She is to contact me if pressure change in effective or uncomfortable. Hopefully this pressure change will reduce her fatigue. If not she is to follow up with PCP for further evaluation. Patient's apnea severity and rationale for treatment to reduce apnea, improve sleep quality and reduce cardiovascular and cerebrovascular events was reviewed. I also reviewed the benefit of consistent device use of CPAP for hypertension, diabetes,depression/anxiety. * * Change auto CPAP pressure to 12-14 cmH2O * Notify me if snoring with mask or feeling that the pressure is too much or too little * Attempt to lose weight * Follow up with PCP for further evaluation of fatigue. * Call this office if any problems using CPAP * Return for follow up in 1 year , or sooner if concerns arise Counseling Topics: Weight loss health impact Visit Type: Telehealth Video Video Type: [employer] Patient Location: Office Location of Provider: Office Patient agrees and consents to this telehealth visit type: Yes Patient agrees to have their insurance billed: Yes Time Spent with Patient (minutes): 22 Provider Statement: I spent 100% of the Telehealth Video Call with the patient with greater than 50% spent counseling the patient and coordination of care.
== END 2020-07-11 11:44 | disposition home or self-care (01) ==
LOC: SC 11:43
PROVIDERS: ATTEND Nurse Practitioner Family
DX: G47.33 Obstructive sleep apnea (adult) (pediatric) (principal); E66.01 Morbid (severe) obesity due to excess calories; Z68.42 Body mass index [BMI] 45.0-49.9, adult

== ENCOUNTER 2020-08-16 21:03 | Emergency (ER) | payer MEDICAID ==
[2020-08-16] MEDS ORDERED: methocarbamoL 500 MG TABLET PO STA (21:39)
[2020-08-16] MEDS ORDERED: KETOROLAC 60 MG/2 ML VIAL IM STA (21:39)
[2020-08-16] MEDS ORDERED: ACETAMINOPHEN 325 MG TABLET PO STA (22:30)
[2020-08-16] MEDS ORDERED: oxyCODONE 5 MG TABLET PO STA (22:52)
[2020-08-16 23:17] VITALS: BP 135/103
--- NOTE | 2020-08-17 09:23 | ED Physician Documentation ---
History of Present Illness - Stated complaint Stated Complaint: TINGLING BACK - Chief complaint Chief Complaint: Back Pain - History obtained from History obtained from: Patient, Family (significant other) - Additonal information Additional information: 39-year-old woman with past medical history of L5-S1 stress fractures diagnosed 2 weeks ago presents with tingling constant aching moderate severity back pain that has progressively worsening over the course of the evening preventing her from sleep. Patient has ibuprofen at home that has not brought her any relief. Denies fever chills urinary incontinence or retention, saddle anesthesia, fecal incontinence or retention or peripheral weakness/sensory loss. Review of Systems Ten Systems: 10 systems reviewed and negative Constitutional: denies: Fever, Chills Skin: denies: Rash Musculoskeletal: reports: Back pain. denies: Neck pain Neurologic: denies: Focal weakness PD PAST MEDICAL HISTORY - Past Medical History Cardiovascular: Hypertension, High cholesterol Respiratory: Asthma, Sleep apnea, CPAP use Neuro: None Endocrine/Autoimmune: Type 2 diabetes GI: GERD [place]: None : None HEENT: Chronic vision loss Psych: Depression, Anxiety, Bipolar disorder, Panic attacks, Post traumatic stress disorder, Other Musculoskeletal: Osteoarthritis, Fibromyalgia Derm: Psoriasis - Past Surgical History Past Surgical History: Yes General: EGD Ortho: Carpal Tunnel surgery - Present Medications Home Medications: Ambulatory Orders Medication Instructions Recorded Confirmed Trazodone HCl 100 mg PO QPM 02/07/19 02/15/19 Acetaminophen [Tylenol] 650 mg PO Q6H PRN 04/06/19 04/06/19 Albuterol Sulfate 1.25 mg IH Q4HR PRN 04/06/19 04/06/19 Albuterol Sulfate [Proair Hfa 2 puffs ORAL Q4HR PRN 04/06/19 04/06/19 Inhaler] Aripiprazole [Abilify] 1 tab ORAL DAILY 04/06/19 04/06/19 Diclofenac Sodium [Voltaren] 2 gm TOP PRN PRN 04/06/19 04/06/19 Escitalopram Oxalate [Lexapro] 5 mg PO DAILY 04/06/19 04/06/19 Insulin Lispro [Humalog Kwikpen 04/06/19 U-200] Insulin Lispro [Humalog Kwikpen SQ 04/06/19 U-200] Liraglutide [Victoza 2-Erick] 1.8 mg SQ DAILY 04/06/19 04/06/19 Metformin HCl 1,000 mg PO BID 04/06/19 04/06/19 Trazodone HCl 2 tab PO QPM 04/06/19 04/06/19 Azithromycin [Zithromax] 250 mg PO DAILY #6 tablet 04/23/19 Hydrocodone/Acetaminophen 1 - 2 each PO Q6H PRN #8 tablet 04/23/19 [Hydrocodon-Acetaminophen 5-325] Azithromycin [Zithromax] 250 mg PO DAILY #4 tablet 12/03/19 Hydrocodone/Acetaminophen 1 - 2 each PO Q6H PRN #14 tablet 04/21/20 [Hydrocodon-Acetaminophen 5-325] Ibuprofen [Motrin] 800 mg PO Q8H PRN #30 tablet 04/21/20 Cyclobenzaprine [Flexeril] 10 mg PO TID PRN #20 tablet 05/05/20 HYDROcod/ACETAM 5/325 [[place] 5/325] 1 - 2 ea PO Q6H PRN #15 tablet 05/05/20 - Allergies Allergies/Adverse Reactions: Allergies Allergy/AdvReac Type Severity Reaction Status Date / Time Penicillins Allergy Hives Verified 08/16/20 21:13 - Social History Does the pt smoke?: Yes Smoking Status: Current every day smoker Does the pt drink ETOH?: No Does the pt have substance abuse?: Yes - Immunizations Immunizations are current?: Yes - POLST Patient has POLST: No PD ED PE NORMAL - Vitals Vital signs reviewed: Yes - General General: Alert and oriented X 3 - HEENT HEENT: Atraumatic - Neck Neck: Supple, no meningeal sign - Cardiac Cardiac: RRR - Respiratory Respiratory: No respiratory distress - Abdomen Abdomen: Normal bowel sounds, Non tender, Non distended - Female Female : Deferred - Rectal Rectal: Deferred - Back Back: Other (lumbar spine mild ttp) - Derm Derm: Normal color - Extremities Extremities: No deformity - Neuro Neuro: Alert and oriented X 3, assistant professor sculpture 2-12 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 Pain improved with Toradol and Robaxin. Patient requested a Percocet and it was given. Extensive education about narcotic pain medication and its role in chronic pain management was undertaken. Patient agreeable to going home and trying not on addictive methods for pain control. Will follow up with her physical therapist and primary doctor and pain management doctor. Departure - Departure Disposition: 01 Home, Self Care Clinical Impression: Pain, Back pain Condition: Good Instructions: ED Chronic Pain Management, NARCOTIC, Oral Comments: You have been seen in the emergency department for chronic back pain. Please follow-up with your pain management doctor and with physical therapy. Return to the ED for any worsening of symptoms. Do not drive after taking narcotic pain medication. Discharge Date/Time: 08/16/20 23:17
== END 2020-08-16 23:17 | disposition home or self-care (01) ==
LOC: ED 21:03
DX: G89.29 Other chronic pain (principal); M54.9 Dorsalgia, unspecified; I10 Essential (primary) hypertension; E11.9 Type 2 diabetes mellitus without complications; M79.7 Fibromyalgia; K21.9 Gastro-esophageal reflux disease without esophagitis; F41.9 Anxiety disorder, unspecified; F41.0 Panic disorder [episodic paroxysmal anxiety]; F31.9 Bipolar disorder, unspecified; F43.10 Post-traumatic stress disorder, unspecified; F17.200 Nicotine dependence, unspecified, uncomplicated; Z79.4 Long term (current) use of insulin
CPT/HCPCS: 96372; 99282; 99283; A9270

== ENCOUNTER 2020-08-27 18:39 | Outpatient (CLI) | payer MEDICAID | END 2020-08-27 18:40 | disposition home or self-care (01) | LOC: COV 18:39 | PROVIDERS: ATTEND Family Medicine | DX: R05 Cough (principal); Z20.828 Contact with and (suspected) exposure to other viral communicable diseases; R06.02 Shortness of breath; M79.10 Myalgia, unspecified site; R53.83 Other fatigue; J02.9 Acute pharyngitis, unspecified; R19.7 Diarrhea, unspecified; R09.81 Nasal congestion; R43.9 Unspecified disturbances of smell and taste ==

== ENCOUNTER 2020-09-02 23:19 | Emergency (ER) | payer MEDICAID ==
--- NOTE | 2020-09-02 23:22 | ED Physician Documentation ---
PD HPI URI - Stated complaint Stated Complaint: URI SYMPTOMS, EAR PX - History obtained from History obtained from: Patient - History of Present Illness Timing - onset: How many days ago (7-8) Timing duration: Days (7-8) Timing details: Abrupt onset, Still present Associated symptoms: Fever, Chills, Ear pain (left), Sore throat, Productive cough (now for couple of days) Contributing factors: Sick contact (spouse with URI symptoms prior to her. They both tested negative for COVID6 days ago. She has had increased/persistent wheezing c/w her asthma/COPD.), COPD / asthma Improves by: MDI/nebulizer (mildly improved with ALbuterol, but less so the past day.) Review of Systems Constitutional: reports: Chills. denies: Fever Ears: reports: Ear pain (left) Nose: reports: Congestion Throat: denies: Sore throat Cardiac: denies: Chest pain / pressure Respiratory: reports: Dyspnea, Cough, Wheezing GI: denies: Nausea, Vomiting, Diarrhea Neurologic: reports: Generalized weakness. 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 : None HEENT: Chronic vision loss Psych: Depression, Anxiety, Bipolar disorder, Panic attacks, Post traumatic stress disorder, Other Musculoskeletal: Osteoarthritis, Fibromyalgia Derm: Psoriasis - Past Surgical History Past Surgical History: Yes General: EGD Ortho: Carpal Tunnel surgery - Present Medications Home Medications: Ambulatory Orders Medication Instructions Recorded Confirmed Trazodone HCl 100 mg PO QPM 02/07/19 02/15/19 Acetaminophen [Tylenol] 650 mg PO Q6H PRN 04/06/19 04/06/19 Albuterol Sulfate 1.25 mg IH Q4HR PRN 04/06/19 04/06/19 Albuterol Sulfate [Proair Hfa 2 puffs ORAL Q4HR PRN 04/06/19 04/06/19 Inhaler] Aripiprazole [Abilify] 1 tab ORAL DAILY 04/06/19 04/06/19 Diclofenac Sodium [Voltaren] 2 gm TOP PRN PRN 04/06/19 04/06/19 Escitalopram Oxalate [Lexapro] 5 mg PO DAILY 04/06/19 04/06/19 Insulin Lispro [Humalog Kwikpen 04/06/19 U-200] Insulin Lispro [Humalog Kwikpen SQ 04/06/19 U-200] Liraglutide [Victoza 2-Erick] 1.8 mg SQ DAILY 04/06/19 04/06/19 Metformin HCl 1,000 mg PO BID 04/06/19 04/06/19 Trazodone HCl 2 tab PO QPM 04/06/19 04/06/19 Azithromycin [Zithromax] 250 mg PO DAILY #6 tablet 04/23/19 Hydrocodone/Acetaminophen 1 - 2 each PO Q6H PRN #8 tablet 04/23/19 [Hydrocodon-Acetaminophen 5-325] Azithromycin [Zithromax] 250 mg PO DAILY #4 tablet 12/03/19 Hydrocodone/Acetaminophen 1 - 2 each PO Q6H PRN #14 tablet 04/21/20 [Hydrocodon-Acetaminophen 5-325] Ibuprofen [Motrin] 800 mg PO Q8H PRN #30 tablet 04/21/20 Cyclobenzaprine [Flexeril] 10 mg PO TID PRN #20 tablet 05/05/20 HYDROcod/ACETAM 5/325 [[place] 5/325] 1 - 2 ea PO Q6H PRN #15 tablet 05/05/20 Benzonatate [Tessalon] 100 mg PO TID PRN #20 capsule 09/03/20 Doxycycline Monohydrate 150 mg PO BID #14 capsule 09/03/20 Ipratropium [Atrovent] 0.5 mg INH Q6H #30 neb 09/03/20 dexAMETHasone [Decadron] 4 mg PO DAILY #7 tablet 09/03/20 - Allergies Allergies/Adverse Reactions: Allergies Allergy/AdvReac Type Severity Reaction Status Date / Time Penicillins Allergy Hives Verified 09/02/20 23:23 - Social History Does the pt smoke?: Yes Smoking Status: Current every day smoker Does the pt drink ETOH?: No Does the pt have substance abuse?: Yes - Immunizations Immunizations are current?: Yes - POLST Patient has POLST: No PD ED PE NORMAL - Vitals Vital signs reviewed: Yes - General General: Alert and oriented X 3, No acute distress (able to talk in sentences but seems short of breath by the end. Has some prolonged expiratory phase. No accessory muscle use. ), Well developed/nourished - HEENT HEENT: Ears normal (perhaps some fluid behind left TM, but no redness. Mild hyperemia right TM but no swelling nor general redness. ), Moist mucous membranes, Pharynx benign - Neck Neck: Supple, no meningeal sign, No adenopathy - Cardiac Cardiac: RRR, No murmur - Respiratory Respiratory: No: Clear bilaterally (no coarse sounds but does have general moderate wheezing. ) - Abdomen Abdomen: Soft, Non tender - Derm Derm: Normal color, Warm and dry - Extremities Extremities: No edema, No calf tenderness / cord - Neuro Neuro: Alert and oriented X 3, No motor deficit, Normal speech Results - Vitals Vitals: Vital Signs - 24 hr 09/02/20 09/02/20 09/03/20 23:23 23:28 00:23 Temperature 36.9 C 36.9 C Heart Rate 99 99 99 Respiratory 24 24 20 Rate Blood Pressure 135/100 H 135/99 H O2 Saturation 96 96 09/03/20 09/03/20 01:05 01:06 Temperature 36.9 C Heart Rate 98 98 Respiratory 20 20 Rate Blood Pressure 134/98 H O2 Saturation 96 Oxygen O2 Source Room air - Rads (name of study) chest xray Radiology: Prelim report reviewed (no infiltrates), See rad report PD MEDICAL DECISION MAKING - ED course Complexity details: reviewed results, re-evaluated patient (improved breathing and is feeling more comfortable after neb. Diminished wheezing, but still some. Will give 2nd neb. ), considered differential, d/w patient Departure - Departure Disposition: 01 Home, Self Care Clinical Impression: Viral URI Acute asthma exacerbation Qualifiers: Asthma severity: mild Asthma persistence: intermittent Qualified Code(s): J45.21 - Mild intermittent asthma with (acute) exacerbation Condition: Stable Record reviewed to determine appropriate education?: Yes Instructions: ED URI Viral W Wheezing Follow-Up: ANGEL OLSON PA-C [Primary Care Provider] - Prescriptions: Ipratropium [Atrovent] 0.5 mg INH Q6H #30 neb dexAMETHasone [Decadron] 4 mg PO DAILY #7 tablet Doxycycline Monohydrate 150 mg PO BID #14 capsule Benzonatate [Tessalon] 100 mg PO TID PRN #20 capsule PRN Reason: Cough Comments: Well-hydrated. Continue your usual albuterol nebulizer inhaler 4 times a day regularly and combine the Atrovent/ipratropium in with it 4 times a day. Add extra albuterol treatments as needed for wheezing. Decadron steroid anti-inflammatory for the airways will help quite a bit as well over the next couple of days. It will cause your sugar to elevate some so watch that and use your Humalog as needed. If you find your sugars elevating uncomfortably high for you, then discontinue the Decadron or cut the dose in half. Tessalon if needed for cough. You can continue the Mucinex as well. Though this likely is a viral type illness, given your asthma/COPD and worsened symptoms, it may be that there is some bacterial component to it now as well so add doxycycline antibiotic twice daily for a week. Recheck if not improving well over the next several days and return if worsening. Chest x-ray is clear right now without any signs of pneumonia. Discharge Date/Time: 09/03/20 01:22
[2020-09-03] MEDS: CHERRY SYRUP 10 ML UDC PO ONE (00:08)
[2020-09-03] MEDS: DEXAMETHASONE 10 MG/ML VIAL PO STA (00:09)
[2020-09-03] MEDS: DOXYCYCLINE 100 MG TABLET PO STA (00:09)
[2020-09-03] MEDS: IPRATROPIUM/ALBUTEROL 3 ML NEB INH STA (00:23)
[2020-09-03] MEDS: ALBUTEROL NEB 2.5 MG/3 ML INH STA (01:05)
[2020-09-03 01:06] VITALS: BP 134/98
--- NOTE | 2020-09-03 07:14 | XRAY Report ---
PROCEDURE: Chest 1 View X-Ray INDICATIONS: cough and wheezing TECHNIQUE: One view of the chest was acquired. COMPARISON: 12/01/2017 FINDINGS: Surgical changes and devices: None. Lungs and pleura: No pleural effusions or pneumothorax. Lungs are clear. Mediastinum: Mediastinal contours appear normal. Heart size is normal. Bones and chest wall: No suspicious bony lesions. Overlying soft tissues appear unremarkable. IMPRESSION: Chest without acute cardiopulmonary abnormalities. No significant discrepancy with initial interpretation by overnight radiologist. Reviewed by: Marbin Mederos MD on 09/03/2020 7:13 AM PST Approved by: Marbin Mederos MD on 09/03/2020 7:13 AM PST Station ID: [id number]
== END 2020-09-03 01:22 | disposition home or self-care (01) ==
LOC: ED 23:19
DX: J06.9 Acute upper respiratory infection, unspecified (principal); J45.21 Mild intermittent asthma with (acute) exacerbation; F17.200 Nicotine dependence, unspecified, uncomplicated; I10 Essential (primary) hypertension; E11.9 Type 2 diabetes mellitus without complications; Z79.4 Long term (current) use of insulin
CPT/HCPCS: 71045; 94640; 94664; 99284; A9270

== ENCOUNTER 2020-10-10 07:26 | Outpatient (CLI) | payer MEDICAID | END 2020-10-10 07:27 | disposition critical access hospital (66) | LOC: EMS 07:26 | PROVIDERS: ATTEND Surgery | DX: M54.5 Low back pain (principal); R11.2 Nausea with vomiting, unspecified; R31.9 Hematuria, unspecified | CPT/HCPCS: A0425; A0427; A0999 ==

== ENCOUNTER 2020-10-10 07:45 | Emergency (ER) | payer MEDICAID ==
[2020-10-10] MEDS ORDERED: KETOROLAC 30 MG/ML VIAL IVP STA (07:55)
[2020-10-10] MEDS ORDERED: SODIUM CHLORIDE 0.9% 1,000 ML IV STA (07:55)
[2020-10-10] MEDS ORDERED: HYDROmorphone 1 MG/ML CARPUJECT IVP STA ×2 (07:55→08:45)
--- NOTE | 2020-10-10 07:59 | ED Physician Documentation ---
History of Present Illness - Stated complaint Stated Complaint: L FLANK PX - Chief complaint Chief Complaint: Abd Pain - History obtained from History obtained from: Patient - Additonal information Additional information: Patient comes emergency department with chief complaint of left flank pain that started overnight. Patient states that she has had nausea because of the pain. She denies fevers or chills. She has noticed hematuria which has become more and more prominent over the course of the morning. The patient states she had a twinge of dysuria yesterday but has not had any since. She states her pain started in the left back and then wraps around to the left pelvis. She states that she has also had chronic low back pain which seems worse lately and she has been in the midst of work-up for this. She just had an MRI done at [facility] 3 days ago but does not know the results yet. Patient Received 4 mg of morphine and 4 mg of Zofran IV in route by the medics, and states that she is still just is nauseated. Her pain was a little better for short period but is now worse again. No other complaints at this time. The patient has a past medical history significant for diabetes, fibromyalgia, obesity, peripheral neuropathy, and chronic low back pain. Review of Systems Ten Systems: 10 systems reviewed and negative Constitutional: reports: Reviewed and negative Eyes: reports: Reviewed and negative Ears: reports: Reviewed and negative Nose: reports: Reviewed and negative Throat: reports: Reviewed and negative Cardiac: reports: Reviewed and negative Respiratory: reports: Reviewed and negative GI: reports: Abdominal Pain, Nausea, Vomiting : reports: Reviewed and negative Skin: reports: Reviewed and negative Musculoskeletal: reports: Back pain Neurologic: reports: Reviewed and negative Psychiatric: reports: Reviewed and negative Endocrine: reports: Reviewed and negative Immunocompromised: reports: Reviewed and negative PD PAST MEDICAL HISTORY - Past Medical History Cardiovascular: Hypertension, High cholesterol Respiratory: Asthma, Sleep apnea, CPAP use Neuro: None Endocrine/Autoimmune: Type 2 diabetes GI: GERD 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 HEENT: Chronic vision loss Psych: Depression, Anxiety, Bipolar disorder, Panic attacks, Post traumatic stress disorder, Other Musculoskeletal: Osteoarthritis, Fibromyalgia Derm: Psoriasis - Past Surgical History Past Surgical History: Yes General: EGD Ortho: Carpal Tunnel surgery - Present Medications Home Medications: Ambulatory Orders Medication Instructions Recorded Confirmed Trazodone HCl 100 mg PO QPM 02/07/19 02/15/19 Acetaminophen [Tylenol] 650 mg PO Q6H PRN 04/06/19 04/06/19 Albuterol Sulfate 1.25 mg IH Q4HR PRN 04/06/19 04/06/19 Albuterol Sulfate [Proair Hfa 2 puffs ORAL Q4HR PRN 04/06/19 04/06/19 Inhaler] Aripiprazole [Abilify] 1 tab ORAL DAILY 04/06/19 04/06/19 Diclofenac Sodium [Voltaren] 2 gm TOP PRN PRN 04/06/19 04/06/19 Escitalopram Oxalate [Lexapro] 5 mg PO DAILY 04/06/19 04/06/19 Insulin Lispro [Humalog Kwikpen 04/06/19 U-200] Insulin Lispro [Humalog Kwikpen SQ 04/06/19 U-200] Liraglutide [Victoza 2-Erick] 1.8 mg SQ DAILY 04/06/19 04/06/19 Metformin HCl 1,000 mg PO BID 04/06/19 04/06/19 Trazodone HCl 2 tab PO QPM 04/06/19 04/06/19 Azithromycin [Zithromax] 250 mg PO DAILY #6 tablet 04/23/19 Hydrocodone/Acetaminophen 1 - 2 each PO Q6H PRN #8 tablet 04/23/19 [Hydrocodon-Acetaminophen 5-325] Azithromycin [Zithromax] 250 mg PO DAILY #4 tablet 12/03/19 Hydrocodone/Acetaminophen 1 - 2 each PO Q6H PRN #14 tablet 04/21/20 [Hydrocodon-Acetaminophen 5-325] Ibuprofen [Motrin] 800 mg PO Q8H PRN #30 tablet 04/21/20 Cyclobenzaprine [Flexeril] 10 mg PO TID PRN #20 tablet 05/05/20 HYDROcod/ACETAM 5/325 [[place] 5/325] 1 - 2 ea PO Q6H PRN #15 tablet 05/05/20 Benzonatate [Tessalon] 100 mg PO TID PRN #20 capsule 09/03/20 Doxycycline Monohydrate 150 mg PO BID #14 capsule 09/03/20 Ipratropium [Atrovent] 0.5 mg INH Q6H #30 neb 09/03/20 dexAMETHasone [Decadron] 4 mg PO DAILY #7 tablet 09/03/20 HYDROcod/ACETAM 5/325 [[place] 5/325] 1 - 2 ea PO Q6H PRN #15 tablet 10/10/20 Ondansetron Odt [Zofran Odt] 4 mg TL Q6H PRN #10 tablet 10/10/20 Tamsulosin [Flomax] 0.4 mg PO DAILY PRN #7 capsule 10/10/20 - Allergies Allergies/Adverse Reactions: Allergies Allergy/AdvReac Type Severity Reaction Status Date / Time Penicillins Allergy Hives Verified 10/10/20 07:54 - Social History Does the pt smoke?: Yes Smoking Status: Current every day smoker Does the pt drink ETOH?: No Does the pt have substance abuse?: Yes - Immunizations Immunizations are current?: Yes - POLST Patient has POLST: No PD ED PE NORMAL - Vitals Vital signs reviewed: Yes - General General: Alert and oriented X 3, Other (Morbidly obese female, actively vomiting.) - HEENT HEENT: Atraumatic, PERRL, EOMI, Moist mucous membranes - Neck Neck: Supple, no meningeal sign - Cardiac Cardiac: RRR, No murmur - Respiratory Respiratory: No respiratory distress, Clear bilaterally - Abdomen Abdomen: Soft, Non distended, Other (Moderate left lower quadrant and flank tenderness no rebound or guarding.) - Back Back: Other (Moderate left CVA tenderness.) - Derm Derm: Normal color, Warm and dry, No rash - Extremities Extremities: No deformity, No edema, No calf tenderness / cord - Neuro Neuro: Alert and oriented X 3 - Psych Psych: Normal mood, Normal affect Results - Vitals Vitals: Vital Signs - 24 hr 10/10/20 10/10/20 07:46 08:20 Temperature 36.5 C Heart Rate 108 H 102 H Respiratory 16 20 Rate Blood Pressure 156/102 H 143/94 H O2 Saturation 98 95 Oxygen O2 Source Room air - Rads (name of study) CT abd/pelvis wo contrast Radiology: Final report received, EMP read indepedently, See rad report (4 mm calculus prox L ureter) PD MEDICAL DECISION MAKING - ED course Complexity details: reviewed old records, reviewed results, re-evaluated patient, considered differential, d/w patient ED course: The patient was actively vomiting upon arrival in the emergency department and was given a liter of 0.9 normal saline, as well as another 4 mg of Zofran. She was also given Dilaudid 1 mg and Toradol 30 mg for analgesia. The patient was reevaluated after receiving symptomatic treatment and was doing much better. Her CT scan of the abdomen and pelvis without contrast showed a 4 mm renal stone on the left that had just begun to descend the ureter. I spoke with the patient regarding her diagnosis and we discussed home management of the symptoms. I will prescribe analgesia and an antiemetic, plus Flomax. We have discussed drinking plenty of water. The patient is agreeable to the plan. We have discussed the usual indications for return. Departure - Departure Clinical Impression: Kidney stone on left side Condition: Stable Instructions: ED Stone Renal W Colic Prescriptions: Tamsulosin [Flomax] 0.4 mg PO DAILY PRN #7 capsule PRN Reason: Pain HYDROcod/ACETAM 5/325 [Kewadin 5/325] 1 - 2 ea PO Q6H PRN #15 tablet PRN Reason: Pain Ondansetron Odt [Zofran Odt] 4 mg TL Q6H PRN #10 tablet PRN Reason: Nausea / Vomiting
[2020-10-10] MEDS ORDERED: ONDANSETRON 4 MG/2 ML VIAL ONE (08:02)
[2020-10-10] MEDS ORDERED: ONDANSETRON 4 MG/2 ML VIAL IVP STA (08:03)
--- NOTE | 2020-10-10 08:31 | CT Report ---
PROCEDURE: Abdomen/Pelvis WO INDICATIONS: L flank pain, h/o kidney stones previously TECHNIQUE: Noncontrast 5 mm thick sections acquired from the diaphragms to the symphysis. 5 mm coronal and sagi ttal reformats were then performed. For radiation dose reduction, the following was used: automated exposure control, adjustment of mA and/or kV according to patient size. COMPARISON: None. FINDINGS: Image quality: Excellent. ABDOMEN: Lung bases: Lung bases are clear. Heart size is normal. Solid organs: Liver and spleen are normal in size. Gallbladder is normal. Pancreas is normal in co ntours. No adrenal nodules. A 4 mm calcification which on the prior study on 04/21/2020 was in the schmidt perior pole of the left kidney is now within the UPJ. No hydronephrosis. The right kidney has nonobst ructive calculi, unchanged compared to the prior study. Peritoneum and bowel: Unenhanced bowel loops demonstrate normal wall thickness and caliber. No free fluid or air. Nodes and vessels: No retroperitoneal or mesenteric adenopathy by size criteria. Aorta and inferior vena cava are normal in caliber. Miscellaneous: No ventral hernias. PELVIS: Genitourinary: Bladder wall thickness is normal. Miscellaneous: No inguinal hernias or adenopathy. Bones: No suspicious bony lesions. No vertebral body compression fractures. IMPRESSION: 1. 4 mm kidney stone in the left UPJ. 2. Nonobstructive calculi in the right kidney unchanged compared to prior CT. Reviewed by: Renato Lowe on 10/10/2020 8:29 AM [facility] Approved by: Renato Lowe on 10/10/2020 8:29 AM PST Station ID: [id number]
[2020-10-10] MEDS ORDERED: TAMSULOSIN 0.4 MG CAPSULE PO STA (08:46)
[2020-10-10 09:19] VITALS: BP 145/80
== END 2020-10-10 09:15 | disposition home or self-care (01) ==
LOC: EDUNIT# → ED 07:45
DX: N20.2 Calculus of kidney with calculus of ureter (principal); I10 Essential (primary) hypertension; E11.42 Type 2 diabetes mellitus with diabetic polyneuropathy; Z79.4 Long term (current) use of insulin; M54.5 Low back pain; G89.29 Other chronic pain; M79.7 Fibromyalgia; E66.01 Morbid (severe) obesity due to excess calories; Z68.42 Body mass index [BMI] 45.0-49.9, adult; F17.200 Nicotine dependence, unspecified, uncomplicated
CPT/HCPCS: 74176; 96374; 96375; 96376; 99284; A9270; J1170

== ENCOUNTER 2020-11-05 11:50 | Outpatient (CLI) | payer MEDICAID ==
--- NOTE | 2020-11-05 14:02 | SLEEP CARE CONSULTATION ---
Information from patient questionnaire entered by Leo Wise. I have reviewed and concur with the information entered by Leo Wise. This document represents the service I personally performed and the decisions made by me, Gita Lynn ARNP. History of Present Illness Service Date and Time: 11/05/2020 1150 Previous diagnosis: Mild, Obstructive Sleep Apnea-Hypopnea Syndrome AHI: 11.9 (in 2017) Reason for follow up: three month (f/u - issues sleeping) Equipment type: CPAP Equipment obtained from: [employer] (Having trouble getting supplies; tried contacting, left messages, no call back) Mask style: Full face (unable to schedule for nasal mask fitting as changed mind) Backup mask available: No (keep mask once able to get replacement) Last cushion change: May 2020 Prior sleep studies: Yes Year and Where: 2017 - [facility] Type of Sleep Study: Home sleep study ([facility] with [facility]) HPI additional information: ROXANE SANTOS was diagnosed to have mild, AHI 11.9, obstructive sleep apnea-h ypopnea syndrome and returns via Telehealth visit today for CPAP therapy three month with issues sleeping follow-up. CPAP Compliance Data - Data Reviewed with Patient Average duration of nightly device use: 7 h 33 min Compliance rate %: 98.9 Current pressure setting (cmH2O): 12-14 Humidity settin Heated hose settin Average residual AHI: 0.3 Average large leak: 41 sec Subjective Patient concerns: reports: mask discomfort (oils of face causing mask to slip around, going to try a mask liner), other (hose noise when breathing; a filter is not letting air through on the mask and prevents good air flow). denies: aerophagia, air blowing in eyes, mask leak noise, condensation in mask/hose, nasal congestion, dry mouth, nose, throat, epistaxis Observed to snore while using device: Yes (sometimes) Current pressure setting perceived as: comfortable On therapy, patient: reports: sleeping better, awakening more refreshed, being more awake and alert during the day, more rested overall. denies: drowsiness while driving Initial [place] Sleepiness Scale score: 16 (in 2017) Current [place] Sleepiness Scale score: 7 Allergies and Home Medications Drug allergies reviewed: Yes (penicillins) Home medication list reviewed: Yes (no changes) Review of Systems Review of systems same as previous: No (medical leave - for bilateral carpal tunnel release, kidney stones, back fx) Physical Exam Vital signs obtained and entered by: Telehealth visit to reduce exposure during Covid pandemic Height: 5 ft 6 in Impression and Plan 1. Obstructive Sleep Apnea-Hypopnea Syndrome, mild, with good treatment compliance and good apnea control. On CPAP therapy, the patient has better sleep quality and is more rested overall. She has had difficulties getting in touch with her DME supplier. They do not call her back and she has not been able to replace any supplies since May. She states the mask is slipping around on her face due to face oils. I advised her to get a mask liner to go between her face and the mask. She may also wash her face prior to putting on her mask to reduce oils on her face. She just put an order in for supplies 2 days ago online. She was encouraged to wait for her supplies and she can talk to our discharge credit collections clerk if unable to get any more response from the DME. She voiced understanding and agreement with plan of care. Patient's apnea severity and rationale for treatment to reduce apnea, improve sleep quality and reduce cardiovascular and cerebrovascular events was reviewed. I also reviewed the benefit of consistent device use of CPAP for hypertension, diabetes, and depression/anxiety. * Continue auto CPAP pressure at 12-14 cmH2O * Follow up with us if not able to get supplies as needed * Notify me if snoring with mask or feeling that the pressure is too much or too little * Attempt to lose weight * Call this office if any problems using CPAP * Return for follow up in 1 year, or sooner if concerns arise Counseling Topics: Spare mask, Weight loss health impact Visit Type: Telehealth Video Video Type: VSee Patient Location: Home Location of Provider: Office Patient agrees and consents to this telehealth visit type: Yes Patient agrees to have their insurance billed: Yes Time Spent with Patient (minutes): 29 Provider Statement: I spent 100% of the Telehealth Video Call with the patient with greater than 50% spent counseling the patient and coordination of care.
== END 2020-11-05 11:51 | disposition home or self-care (01) ==
LOC: SC 11:50
PROVIDERS: ATTEND Nurse Practitioner Family
DX: G47.33 Obstructive sleep apnea (adult) (pediatric) (principal)

== ENCOUNTER 2020-12-21 21:55 | Emergency (ER) | payer MEDICAID ==
--- NOTE | 2020-12-21 22:33 | ED Physician Documentation ---
History of Present Illness - Stated complaint Stated Complaint: R WRIST PX - Chief complaint Chief Complaint: Ext Problem - History obtained from History obtained from: Patient - History of Present Illness Timing: How many days ago (4) Pain level now: 4 Improved by: nothing Worsened by: no exacerbating factors - Additonal information Additional information: patient had right carpal tunnel release surgery 4 days ago. he c/o burning and stinging discomfort at and around surgical site since the surgery. it is not worsening, but he was concerned about whether symptoms were due to infection Review of Systems Constitutional: denies: Fever, Chills, Sweats Skin: denies: Rash Musculoskeletal: reports: Extremity pain. 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 HEENT: Chronic vision loss Psych: Depression, Anxiety, Bipolar disorder, Panic attacks, Post traumatic stress disorder, Other Musculoskeletal: Osteoarthritis, Fibromyalgia Derm: Psoriasis - Past Surgical History Past Surgical History: Yes General: EGD Ortho: Carpal Tunnel surgery - Present Medications Home Medications: Ambulatory Orders Medication Instructions Recorded Confirmed Trazodone HCl 100 mg PO QPM 02/07/19 02/15/19 Acetaminophen [Tylenol] 650 mg PO Q6H PRN 04/06/19 04/06/19 Albuterol Sulfate 1.25 mg IH Q4HR PRN 04/06/19 04/06/19 Albuterol Sulfate [Proair Hfa 2 puffs ORAL Q4HR PRN 04/06/19 04/06/19 Inhaler] Aripiprazole [Abilify] 1 tab ORAL DAILY 04/06/19 04/06/19 Diclofenac Sodium [Voltaren] 2 gm TOP PRN PRN 04/06/19 04/06/19 Escitalopram Oxalate [Lexapro] 5 mg PO DAILY 04/06/19 04/06/19 Insulin Lispro [Humalog Kwikpen 04/06/19 U-200] Insulin Lispro [Humalog Kwikpen SQ 04/06/19 U-200] Liraglutide [Victoza 2-Erick] 1.8 mg SQ DAILY 04/06/19 04/06/19 Metformin HCl 1,000 mg PO BID 04/06/19 04/06/19 Trazodone HCl 2 tab PO QPM 04/06/19 04/06/19 Azithromycin [Zithromax] 250 mg PO DAILY #6 tablet 04/23/19 Hydrocodone/Acetaminophen 1 - 2 each PO Q6H PRN #8 tablet 04/23/19 [Hydrocodon-Acetaminophen 5-325] Azithromycin [Zithromax] 250 mg PO DAILY #4 tablet 12/03/19 Hydrocodone/Acetaminophen 1 - 2 each PO Q6H PRN #14 tablet 04/21/20 [Hydrocodon-Acetaminophen 5-325] Ibuprofen [Motrin] 800 mg PO Q8H PRN #30 tablet 04/21/20 Cyclobenzaprine [Flexeril] 10 mg PO TID PRN #20 tablet 05/05/20 HYDROcod/ACETAM 5/325 [[place] 5/325] 1 - 2 ea PO Q6H PRN #15 tablet 05/05/20 Benzonatate [Tessalon] 100 mg PO TID PRN #20 capsule 09/03/20 Doxycycline Monohydrate 150 mg PO BID #14 capsule 09/03/20 Ipratropium [Atrovent] 0.5 mg INH Q6H #30 neb 09/03/20 dexAMETHasone [Decadron] 4 mg PO DAILY #7 tablet 09/03/20 HYDROcod/ACETAM 5/325 [[place] 5/325] 1 - 2 ea PO Q6H PRN #15 tablet 10/10/20 Ondansetron Odt [Zofran Odt] 4 mg TL Q6H PRN #10 tablet 10/10/20 Tamsulosin [Flomax] 0.4 mg PO DAILY PRN #7 capsule 10/10/20 traMADol [Ultram] 50 - 100 mg PO Q6H PRN #14 tablet 12/21/20 - Allergies Allergies/Adverse Reactions: Allergies Allergy/AdvReac Type Severity Reaction Status Date / Time Penicillins Allergy Hives Verified 12/21/20 22:09 - Social History Does the pt smoke?: Yes Smoking Status: Current every day smoker Does the pt drink ETOH?: No Does the pt have substance abuse?: Yes - Immunizations Immunizations are current?: Yes - POLST Patient has POLST: No PD ED PE NORMAL - Vitals Vital signs reviewed: Yes - General General: Alert and oriented X 3, No acute distress, Well developed/nourished - Derm Derm: Normal color, Warm and dry, No rash - Extremities Extremities: No edema, Other (right wrist surgical site is C/D/I with sutures in place and well-approximated edges. there is no erythema, discharge, fluctuance. there is mild swelling appropriate / expected for recent surgery. mild TTP. brisk capillary refill in fingertips and LTS intact) Results - Vitals Vitals: Vital Signs - 24 hr 12/21/20 12/21/20 22:00 23:12 Temperature 37.2 C 36.4 C L Heart Rate 96 80 Respiratory 18 16 Rate Blood Pressure 155/89 H 148/86 H O2 Saturation 98 98 Oxygen O2 Source Room air PD MEDICAL DECISION MAKING - ED course Complexity details: considered differential, d/w patient ED course: surgical site has no findings to suggest complication such as infection or dehiscence. patient is reassured by this and was essentially here for wound check, as he wasnt sure if the discomfort he was having was indicative of infection. he asks if short course of tramadol can be provided as he is out of this medication, and this is a reasonable request and thus an rx was provided. he has already scheduled follow up Departure - Departure Disposition: 01 Home, Self Care Clinical Impression: Encounter for postoperative wound check Condition: Good Instructions: ED Wound Check Post Op No Infec Follow-Up: ANGEL OLSON PA-C [Primary Care Provider] - Prescriptions: traMADol [Ultram] 50 - 100 mg PO Q6H PRN #14 tablet PRN Reason: Pain Discharge Date/Time: 12/21/20 23:20
[2020-12-21] MEDS ORDERED: traMADol 50 MG TABLET PO STA (22:49)
[2020-12-21 23:13] VITALS: BP 148/86
== END 2020-12-21 23:20 | disposition home or self-care (01) ==
LOC: ED 21:55
DX: G89.18 Other acute postprocedural pain (principal); E11.9 Type 2 diabetes mellitus without complications; F17.200 Nicotine dependence, unspecified, uncomplicated; Z79.4 Long term (current) use of insulin
CPT/HCPCS: 99282; 99283; A9270

== ENCOUNTER 2021-04-24 09:40 | Outpatient (CLI) | payer MEDICAID ==
[2021-04-24 10:13] VITALS: BP 122/74
--- NOTE | 2021-04-24 10:13 | SLEEP CARE CONSULTATION ---
Information from patient questionnaire entered by Rosario Miguel. I have reviewed and concur with the information entered by Rosario Miguel. This document represents the service I personally performed and the decisions made by , Gita Lynn ARNP. History of Present Illness Service Date and Time: 04/24/2021 0940 Previous diagnosis: Mild, Obstructive Sleep Apnea-Hypopnea Syndrome AHI: 11.9 (in 2017) Reason for follow up: six month Equipment type: CPAP Equipment obtained from: [facility] (got some supplies but none since; not able to get anyone on the phone) Mask style: Full face Backup mask available: Yes (old mask) Last cushion change: 6 months ago Prior sleep studies: Yes Year and Where: 2017 - [facility] Type of Sleep Study: Home sleep study HPI additional information: ROXANE SANTOS was diagnosed to have mild, AHI 11.9, obstructive sleep apnea- hypopnea syndrome and returned today for CPAP therapy six month follow-up. CPAP Compliance Data - Data Reviewed with Patient Average duration of nightly device use: 7 hr 54 min Compliance rate %: 98.3 (180 days) Current pressure setting (cmH2O): 12-14 Humidity settin Heated hose settin Average residual AHI: 0.3 Average large leak: 1 min 32 sec Subjective Missed days of use due to: reports: travel Patient concerns: reports: other (snore while using device, gasping for air). denies: aerophagia, mask discomfort, air blowing in eyes, mask leak noise, condensation in mask/hose, nasal congestion, dry mouth, nose, throat, epistaxis Observed to snore while using device: Yes (as well as gasping in sleep) Current pressure setting perceived as: too low On therapy, patient: reports: other (taking more naps, sleeping in intervals 3-6 hours sleep and 1-2 hour naps). denies: sleeping better, awakening more refreshed, more rested overall Initial [place] Sleepiness Scale score: 16 (in 2017) Current [place] Sleepiness Scale score: 21 Allergies and Home Medications Home medication list reviewed: Yes (no new meds) Review of Systems Review of systems same as previous: No (L/R carpal tunnel revision 12/2020 & 02/2021) Physical Exam Blood Pressure: 122/74 Cuff size: long Heart Rate: 107 O2 Saturation: 97 Height: 5 ft 7 in Weight: 310 lb Body Mass Index: 48.5 BMI Classification: Morbidly Obese Impression and Plan 1. Obstructive Sleep Apnea-Hypopnea Syndrome, mild, with good treatment compliance and excellent apnea control. Patient states that she has not felt more rested recently with using her CPAP machine. She has felt like she needs more air, she is snoring more and gasping in her sleep. Her sleepiness scale has increased to 21/24 since her initial visit. I will change her pressure to 14 to 16 cmH2O for air hunger and snoring. Patient advised to contact this office if pressure change uncomfortable or if pressure change does not resolve snore. Patient has still not been able to get response from her [employer] and has only had one shipment of supplies in the last 6 months. She has been using cloth barriers with her mask which seems to be extending the life of the mask. She has not been able to change her mask in 6 months. I encouraged her to contact the [employer] again. I reviewed with patient that her [employer] is part of a recall by [employer]. She has not noted any particles in her machine. Patient was advised to register her device for the recall. I also advised her that she can obtain an inline filter to strain out particles if she chooses to continue using this device. Patient voiced understanding and will try to find these filters to use. Patient also looking toward late September and early October for having bariatric surgery. Patient is comfortable with the pressure change and will call if it is uncomfortable. I will follow up with her in about a year. Patient's apnea severity and rationale for treatment to reduce apnea, improve sleep quality and reduce cardiovascular and cerebrovascular events was reviewed. I also reviewed the benefit of consistent device use of CPAP for hypertension, diabetes, depression and anxiety. * Change auto CPAP pressure to 14-16 cmH2O * Patient to register her machine on [employer] recall * Notify me if snoring with mask or feeling that the pressure is too much or too little * Continue to try to lose weight * Call this office if any problems using CPAP * Return for follow up in 1 year, or sooner if concerns arise Counseling Topics: Spare mask, Weight loss health impact Visit Type: In Office Time Spent with Patient (minutes): 25 Provider Statement: I spent 100% of the Face to Face Visit with the patient with greater than 50% spent counseling the patient and coordination of care.
== END 2021-04-24 09:41 | disposition home or self-care (01) ==
LOC: SC 09:40
PROVIDERS: ATTEND Nurse Practitioner Family
DX: G47.33 Obstructive sleep apnea (adult) (pediatric) (principal); E66.01 Morbid (severe) obesity due to excess calories; Z68.42 Body mass index [BMI] 45.0-49.9, adult
CPT/HCPCS: 99212; 99213

== ENCOUNTER 2021-05-17 00:48 | Emergency (ER) | payer MEDICAID ==
[2021-05-17] MEDS ORDERED: IPRATROPIUM/ALBUTEROL 3 ML NEB INH STA (01:36)
[2021-05-17] MEDS ORDERED: ALBUTEROL NEB 2.5 MG/3 ML INH STA ×2 (01:38)
[2021-05-17 01:43] VITALS: BP 124/80
[2021-05-17 02:14] LABS: BASOPHILS # (AUTO) 0.1 10^3/uL (0.0-0.1); BASOPHILS % (AUTO) 0.5 %; EOSINOPHILS # (AUTO) 0.5 10^3/uL (0.0-0.7); EOSINOPHILS % (AUTO) 4.9 %; HCT - HEMATOCRIT 41.4 % (37.0-47.0); HGB - HEMOGLOBIN 14.2 g/dL (12.0-16.0); LYMPHOCYTES # (AUTO) 2.4 10^3/uL (1.5-3.5); LYMPHOCYTES % (AUTO) 22.3 %; MEAN CORPUSCULAR HGB CONC 34.3 g/dL (32.0-36.0); MEAN CORPUSCULAR VOLUME 93.2 fL (81.0-99.0); MEAN PLATELET VOLUME 9.4 fL (7.9-10.8); MONOCYTES # (AUTO) 0.8 10^3/uL (0.0-1.0); MONOCYTES % (AUTO) 7.4 %; NEUTROPHILS # (AUTO) 6.8 10^3/uL (1.5-6.6); NEUTROPHILS % (AUTO) 64.2 %; PLT - PLATELET COUNT 344 10^3/uL (130-450); RED BLOOD COUNT 4.44 10^6/uL (4.20-5.40); RED CELL DISTRIBUTION WIDTH 12.6 % (12.0-15.0); WHITE BLOOD COUNT 10.6 x10^3/uL (4.8-10.8)
[2021-05-17 02:17] LABS: VBG BASE EXCESS 0.1 mmol/L (-2 - +2); VBG HCO3 24.9 mmol/L (23-28); VBG OXYGEN SATURATION 91.1 % (60-80); VBG PCO2 40.9 mmHg (41-51); VBG PH 7.402 (7.31-7.41); VBG PO2 55.5 mmHg (25-47); VBG TOTAL CO2 26.1 mmol/L (24-29)
[2021-05-17] MEDS ORDERED: ACETAMINOPHEN 325 MG TABLET PO STA (02:18)
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
[2021-05-17 02:23] LABS: CALCIUM 8.9 mg/dL (8.5-10.3); CREATININE 0.7 mg/dL (0.4-1.0); POTASSIUM 3.8 mmol/L (3.5-5.0)
--- NOTE | 2021-05-17 08:52 | CT Report ---
PROCEDURE: HEAD WO INDICATIONS: headache, remote hx skull fracture TECHNIQUE: Noncontrast 4.5 mm thick angled axial sections acquired from the foramen magnum to the vertex. For r adiation dose reduction, the following was used: automated exposure control, adjustment of mA and/or kV according to patient size. COMPARISON: None. FINDINGS: Image quality: There is streak artifact seen through the skull base. CSF spaces: Basal cisterns are patent. No extra-axial fluid collections. Ventricles are normal in size and shape. Brain: No midline shift. No intracranial masses or hemorrhage. Cao-white matter interface is norm al. Skull and face: Calvarium and visualized facial bones are intact, without suspicious lesions. Sinuses: Visualized sinuses and mastoids are clear. IMPRESSION: No significant intracranial abnormality is seen. Note: No significant discrepancy from the preliminary report. Reviewed by: Hollis Mac MD on 05/17/2021 7:51 AM CONNIE Approved by: Hollis Mac MD on 05/17/2021 7:51 AM CONNIE Station ID: [id number]
--- NOTE | 2021-05-17 08:59 | XRAY Report ---
PROCEDURE: Chest 1 View X-Ray INDICATIONS: Short of breath TECHNIQUE: One view of the chest was acquired. COMPARISON: 09/03/2020, 12/01/2017 FINDINGS: Surgical changes and devices: None. Lungs and pleura: No pleural effusions or pneumothorax. Lungs are clear. Mediastinum: Mediastinal contours appear normal. Heart size is normal. Bones and chest wall: No suspicious bony lesions. Overlying soft tissues appear unremarkable. IMPRESSION: Portable chest within normal limits for age. Note: No significant discrepancy from the preliminary report. Reviewed by: Hollis Mac MD on 05/17/2021 7:58 AM CONNIE Approved by: Hollis Mac MD on 05/17/2021 7:58 AM CONNIE Station ID: [id number]
== END 2021-05-17 03:25 | disposition home or self-care (01) ==
LOC: ED 00:48
DX: R51.9 Headache, unspecified (principal); R42 Dizziness and giddiness; J06.9 Acute upper respiratory infection, unspecified; J34.89 Other specified disorders of nose and nasal sinuses; J44.9 Chronic obstructive pulmonary disease, unspecified; I10 Essential (primary) hypertension; E11.9 Type 2 diabetes mellitus without complications; Z79.4 Long term (current) use of insulin; F17.200 Nicotine dependence, unspecified, uncomplicated
CPT/HCPCS: 36415; 70450; 71045; 80048; 82803; 85025; 94640; 99284; 99285; A9270

== ENCOUNTER 2021-08-27 15:49 | Outpatient (CLI) | payer MEDICAID | END 2021-08-27 15:50 | disposition critical access hospital (66) | LOC: EMS 15:49 | DX: R10.9 Unspecified abdominal pain (principal) | CPT/HCPCS: A0425; A0427; A0999 ==

== ENCOUNTER 2021-08-27 16:07 | Emergency (ER) | payer MEDICAID ==
--- NOTE | 2021-08-27 16:21 | ED Physician Documentation ---
PD HPI ABD PAIN - Stated complaint Stated Complaint: L FLANK PX - Chief complaint Chief Complaint: Abd Pain - History obtained from History obtained from: Patient - History of Present Illness Timing - onset: How many hours ago (1-2), Today Timing - duration: Hours Timing - details: Abrupt onset, Still present, Constant Quality: Cramping, Aching, Pain Location: LLQ Radiation: Left flank Improved by: No: Laying still, Position Worsened by: No: Moving, Breathing, Palpation Associated symptoms: Nausea, Vomiting (once), Loss of appetite, Other (denies chance of . On control.). No: Fever, Diarrhea, Constipation, Dysuria Similar symptoms before: Diagnosis (similar to prior kidney stones; states has passed 4 of them this year alone. Has not needed prior surgical intervention.) Recently seen: Not recently seen Review of Systems Constitutional: denies: Fever, Chills Nose: denies: Rhinorrhea / runny nose, Congestion Throat: denies: Sore throat Respiratory: denies: Cough GI: reports: Abdominal Pain (just the past 1-2 hours), Nausea. denies: Constipation, Diarrhea : reports: LMP (6 weeks ago.), Irregular menses (states chronically irregular; on OCPs.). 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 : None HEENT: Chronic vision loss Psych: Depression, Anxiety, Bipolar disorder, Panic attacks, Post traumatic stress disorder, Other Musculoskeletal: Osteoarthritis, Fibromyalgia Derm: Psoriasis - Past Surgical History Past Surgical History: Yes General: EGD Ortho: Carpal Tunnel surgery - Present Medications Home Medications: Ambulatory Orders Medication Instructions Recorded Confirmed Trazodone HCl 100 mg PO QPM 02/07/19 02/15/19 ARIPiprazole [Abilify] 1 tab ORAL DAILY 04/06/19 04/06/19 Acetaminophen [Tylenol] 650 mg PO Q6H PRN 04/06/19 04/06/19 Albuterol Sulfate 1.25 mg IH Q4HR PRN 04/06/19 04/06/19 Albuterol Sulfate [Proair Hfa 2 puffs ORAL Q4HR PRN 04/06/19 04/06/19 Inhaler] Diclofenac Sodium [Voltaren] 2 gm TOP PRN PRN 04/06/19 04/06/19 Escitalopram Oxalate [Lexapro] 5 mg PO DAILY 04/06/19 04/06/19 Insulin Lispro [Humalog Kwikpen 04/06/19 U-200] Insulin Lispro [Humalog Kwikpen SQ 04/06/19 U-200] Liraglutide [Victoza 2-Erick] 1.8 mg SQ DAILY 04/06/19 04/06/19 Metformin HCl 1,000 mg PO BID 04/06/19 04/06/19 Trazodone HCl 2 tab PO QPM 04/06/19 04/06/19 Azithromycin [Zithromax] 250 mg PO DAILY #6 tablet 04/23/19 Hydrocodone/Acetaminophen 1 - 2 each PO Q6H PRN #8 tablet 04/23/19 [Hydrocodon-Acetaminophen 5-325] Azithromycin [Zithromax] 250 mg PO DAILY #4 tablet 12/03/19 Hydrocodone/Acetaminophen 1 - 2 each PO Q6H PRN #14 tablet 04/21/20 [Hydrocodon-Acetaminophen 5-325] Ibuprofen [Motrin] 800 mg PO Q8H PRN #30 tablet 04/21/20 Cyclobenzaprine [Flexeril] 10 mg PO TID PRN #20 tablet 05/05/20 HYDROcod/ACETAM 5/325 [[place] 5/325] 1 - 2 ea PO Q6H PRN #15 tablet 05/05/20 Benzonatate [Tessalon] 100 mg PO TID PRN #20 capsule 09/03/20 Doxycycline Monohydrate 150 mg PO BID #14 capsule 09/03/20 Ipratropium [Atrovent] 0.5 mg INH Q6H #30 neb 09/03/20 dexAMETHasone [Decadron] 4 mg PO DAILY #7 tablet 09/03/20 HYDROcod/ACETAM 5/325 [[place] 5/325] 1 - 2 ea PO Q6H PRN #15 tablet 10/10/20 Ondansetron Odt [Zofran Odt] 4 mg TL Q6H PRN #10 tablet 10/10/20 Tamsulosin [Flomax] 0.4 mg PO DAILY PRN #7 capsule 10/10/20 traMADol [Ultram] 50 - 100 mg PO Q6H PRN #14 tablet 12/21/20 - Allergies Allergies/Adverse Reactions: Allergies Allergy/AdvReac Type Severity Reaction Status Date / Time Penicillins Allergy Hives Verified 08/27/21 16:13 - Social History Does the pt smoke?: Yes Smoking Status: Current every day smoker Does the pt drink ETOH?: No Does the pt have substance abuse?: Yes - Immunizations Immunizations are current?: Yes - POLST Patient has POLST: No PD ED PE NORMAL - Vitals Vital signs reviewed: Yes - General General: Alert and oriented X 3, Well developed/nourished, Other (appears in pain with some writhing on cart. ) - Cardiac Cardiac: RRR, No murmur - Respiratory Respiratory: Clear bilaterally - Abdomen Abdomen: Normal bowel sounds, Soft, Non distended, No organomegaly, Other (some tenderness LLQ without guarding nor percussion tenderness. Obese. No skin lesions in folds. ) - Female Female : Deferred - Rectal Rectal: Deferred - Back Back: No spinal TTP, Other (moderate left CVA tenderness to percussion. ) - Derm Derm: Normal color, Warm and dry - Neuro Neuro: Alert and oriented X 3, No motor deficit, Normal speech Results - Vitals Vitals: Vital Signs - 24 hr 08/27/21 08/27/21 16:13 18:15 Temperature 37.2 C Heart Rate 109 H 97 Respiratory 22 17 Rate Blood Pressure 154/94 H 122/83 H O2 Saturation 99 99 Oxygen O2 Source Room air - Labs Labs: Laboratory Tests 08/27/21 08/27/21 08/27/21 16:21 16:29 16:29 WBC 11.6 H RBC 4.72 Hgb 14.9 Hct 44.3 MCV 93.9 MCH 31.6 H MCHC 33.6 RDW 13.1 Plt Count 356 MPV 9.2 Neut # (Auto) 8.0 H Lymph # (Auto) 2.1 [place] # (Auto) 1.0 Eos # (Auto) 0.4 Baso # (Auto) 0.0 Absolute Nucleated RBC 0.00 Nucleated RBC % 0.0 Sodium 135 Potassium 3.6 Chloride 99 L Carbon Dioxide 25 Anion Gap 11.0 BUN 10 Creatinine 0.8 Estimated GFR (MDRD) 79 L Glucose 118 H Calcium 8.6 Total Bilirubin 0.7 AST 15 ALT 24 Alkaline Phosphatase 50 Total Protein 7.4 Albumin 4.1 Globulin 3.3 Albumin/Globulin Ratio 1.2 Lipase 45 HCG, Quant Urine Color YELLOW Urine Clarity CLEAR Urine pH 6.5 Ur Specific [place] 1.020 Urine Protein NEGATIVE Urine Glucose (UA) >=1000 H Urine Ketones NEGATIVE Urine Occult Blood NEGATIVE Urine Nitrite NEGATIVE Urine Bilirubin NEGATIVE Urine Urobilinogen 0.2 (NORMAL) Ur Leukocyte Esterase NEGATIVE Ur Microscopic Review NOT INDICATED Urine Culture Comments NOT INDICATED Urine HCG, Qual POSITIVE 08/27/21 16:29 WBC RBC Hgb Hct MCV MCH MCHC RDW Plt Count MPV Neut # (Auto) Lymph # (Auto) [place] # (Auto) Eos # (Auto) Baso # (Auto) Absolute Nucleated RBC Nucleated RBC % Sodium Potassium Chloride Carbon Dioxide Anion Gap BUN Creatinine Estimated GFR (MDRD) Glucose Calcium Total Bilirubin AST ALT Alkaline Phosphatase Total Protein Albumin Globulin Albumin/Globulin Ratio Lipase HCG, Quant 4461.00 Urine Color Urine Clarity Urine pH Ur Specific [place] Urine Protein Urine Glucose (UA) Urine Ketones Urine Occult Blood Urine Nitrite Urine Bilirubin Urine Urobilinogen Ur Leukocyte Esterase Ur Microscopic Review Urine Culture Comments Urine HCG, Qual - Rads (name of study) KUB CT Radiology: Prelim report reviewed (no ureteral stones. No acute process otherwise to explain pain. ), See rad report PD MEDICAL DECISION MAKING - ED course Complexity details: reviewed results (CT without acute process to explain the pain. UA normal. HCG positive. Will get quant HCG and also OB U/S. ), considered differential (symptoms very c/w prior kidney stones. Can give meds for that and obtain KUB CT to evaluate. ), d/w patient Departure - Departure Disposition: 01 Home, Self Care Clinical Impression: Left sided abdominal pain, Early stage of Condition: Stable Record reviewed to determine appropriate education?: Yes Instructions: ED Abdominal Pain Rule Out Ectopic, ED Care Follow-Up: ANGEL OLSON PA-C [Primary Care Provider] - Within 3 Days Comments: As we discussed, your test is positive today. Your hCG level is around 4400. You have elected not to stay for the pelvic ultrasound today to rule out ectopic , ovarian cyst, ovarian torsion or other potentially dangerous etiologies for your pain. You are welcome to return at any time should you change your mind. You should return immediately for worsening pain or other new or worrisome symptoms. You should call your doctor tomorrow to have a pelvic ultrasound scheduled urgently, preferably within the next 2 to 3 days. IMPRESSION: 1. Tiny nonobstructing right renal stone. 2. Mild hepatomegaly, mild hepatic steatosis. 3. No evidence of acute abdominal process. No findings which explain left flank pain Discharge Date/Time: 08/27/21 18:20
[2021-08-27 16:30] LABS: BILIRUBIN,URINE NEGATIVE (NEGATIVE); GLUCOSE, URINE (UA) >=1000 mg/dL (NEGATIVE); KETONES,URINE (UA) NEGATIVE (NEGATIVE); LEUKOCYTE ESTERASE, URINE NEGATIVE (NEGATIVE); NITRITE,URINE NEGATIVE (NEGATIVE); OCCULT BLOOD,URINE NEGATIVE (NEGATIVE); PH,URINE 6.5 PH (5.0-7.5); PROTEIN,URINE NEGATIVE (NEGATIVE); UROBILINOGEN,URINE 0.2 (NORMAL) E.U./dL (NORMAL)
[2021-08-27] MEDS ORDERED: KETOROLAC 30 MG/ML VIAL IVP STA (16:30)
[2021-08-27] MEDS ORDERED: SODIUM CHLORIDE 0.9% 1,000 ML IV STA (16:30)
[2021-08-27] MEDS ORDERED: DROPERIDOL 5 MG/2 ML VIAL IVP STA (16:31)
[2021-08-27] MEDS ORDERED: LIDOCAINE-MPF 2% 10 ML in SODIUM CHLORIDE 0.9% 50 ML IV STA (16:31)
[2021-08-27] MEDS ORDERED: HYDROmorphone 1 MG/ML CARPUJECT IVP STA (16:31)
[2021-08-27 16:34] LABS: BASOPHILS % (AUTO) 0.3 %; EOSINOPHILS # (AUTO) 0.4 10^3/uL (0.0-0.7); EOSINOPHILS % (AUTO) 3.3 %; HCT - HEMATOCRIT 44.3 % (37.0-47.0); HGB - HEMOGLOBIN 14.9 g/dL (12.0-16.0); LYMPHOCYTES # (AUTO) 2.1 10^3/uL (1.5-3.5); LYMPHOCYTES % (AUTO) 17.8 %; MEAN CORPUSCULAR HEMOGLOBIN 31.6 pg (27.0-31.0); MEAN CORPUSCULAR HGB CONC 33.6 g/dL (32.0-36.0); MEAN CORPUSCULAR VOLUME 93.9 fL (81.0-99.0); MEAN PLATELET VOLUME 9.2 fL (7.9-10.8); MONOCYTES % (AUTO) 8.8 %; NEUTROPHILS % (AUTO) 69.2 %; PLT - PLATELET COUNT 356 10^3/uL (130-450); RED BLOOD COUNT 4.72 10^6/uL (4.20-5.40); RED CELL DISTRIBUTION WIDTH 13.1 % (12.0-15.0); WHITE BLOOD COUNT 11.6 x10^3/uL (4.8-10.8)
[2021-08-27 16:38] LABS: CLARITY,URINE CLEAR (CLEAR); HCG UR QUAL POSITIVE
[2021-08-27 16:49] LABS: ALBUMIN 4.1 g/dL (3.2-5.5); ALBUMIN/GLOBULIN RATIO 1.2 (1.0-2.2); BILIRUBIN,TOTAL 0.7 mg/dL (0.2-1.0); CALCIUM 8.6 mg/dL (8.5-10.3); CREATININE 0.8 mg/dL (0.4-1.0); POTASSIUM 3.6 mmol/L (3.5-5.0); TOTAL PROTEIN 7.4 g/dL (6.7-8.2)
--- NOTE | 2021-08-27 17:02 | CT Report ---
PROCEDURE: Abdomen/Pelvis WO INDICATIONS: left flank/abd pain abrupt today TECHNIQUE: Noncontrast 5 mm thick sections acquired from the diaphragms to the symphysis. 5 mm coronal and sagi ttal reformats were then performed. For radiation dose reduction, the following was used: automated exposure control, adjustment of mA and/or kV according to patient size. COMPARISON: None. FINDINGS: Image quality: Excellent. ABDOMEN: Lung bases: A density present in the extreme right lung base on current image 13 of series 4, having a somewhat spiculated appearance on the current study and not present on the previous study, resolves to represent an area of focal atelectasis, when looking at coronal image 46/6. Heart size is normal. Solid organs: Mild hepatic steatosis and hepatomegaly. Spleen is normal in size. Gallbladder is unrem arkable. Pancreas is normal in contours. No adrenal nodules. Kidneys are normal in size, without h ydronephrosis. 1 mm nonobstructing right lower pole renal stone. Previous left UPJ stone is no longer present. Peritoneum and bowel: Unenhanced bowel loops demonstrate normal wall thickness and caliber. No free fluid or air. Nodes and vessels: No retroperitoneal or mesenteric adenopathy by size criteria. Aorta and inferior vena cava are normal in caliber. Miscellaneous: No ventral hernias. PELVIS: Genitourinary: Bladder wall thickness is normal. Miscellaneous: No inguinal hernias or adenopathy. Bones: No suspicious bony lesions. No vertebral body compression fractures. IMPRESSION: 1. Tiny nonobstructing right renal stone. 2. Mild hepatomegaly, mild hepatic steatosis. 3. No evidence of acute abdominal process. No findings which explain left flank pain. Reviewed by: Hero Steven MD on 08/27/2021 5:00 PM PST Approved by: Hero Steven MD on 08/27/2021 5:00 PM PST Station ID: [id number]
--- NOTE | 2021-08-27 18:11 | ED Physician Documentation ---
ED Addendum - Addendum Addendum: 08/27/21 18:10 Patient was signed out to me by Dr. Hussein awaiting OB ultrasound. Patient has a positive test, hCG of 4400. She does not want to stay for an ultrasound. Patient is requesting to leave at this time. Informed the patient that we are looking for ectopic or other causes of her left sided pelvic pain. Patient states that she accepts the risk of a ruptured ectopic and that she will return if she worsens. Patient counseled regarding signs and symptoms for which I believe and urgent re-evaluation would be necessary. Patient with good understanding of and agreement to plan and is comfortable going home at this time This document was made in part using voice recognition software. While efforts are made to proofread this document, sound alike and grammatical errors may occur. Departure - Departure Disposition: 01 Home, Self Care Clinical Impression: Left sided abdominal pain, Early stage of Condition: Stable Instructions: ED Abdominal Pain Rule Out Ectopic, ED Care Follow-Up: ANGEL OLSON PA-C [Primary Care Provider] - Within 3 Days Comments: As we discussed, your test is positive today. Your hCG level is around 4400. You have elected not to stay for the pelvic ultrasound today to rule out ectopic , ovarian cyst, ovarian torsion or other potentially dangerous etiologies for your pain. You are welcome to return at any time should you change your mind. You should return immediately for worsening pain or other new or worrisome symptoms. You should call your doctor tomorrow to have a pelvic ultrasound scheduled urgently, preferably within the next 2 to 3 days. IMPRESSION: 1. Tiny nonobstructing right renal stone. 2. Mild hepatomegaly, mild hepatic steatosis. 3. No evidence of acute abdominal process. No findings which explain left flank pain
[2021-08-27 18:18] VITALS: BP 122/83
== END 2021-08-27 18:20 | disposition home or self-care (01) ==
LOC: EDUNIT# → ED 16:07
DX: R10.32 Left lower quadrant pain (principal); R11.2 Nausea with vomiting, unspecified; Z32.01 Encounter for pregnancy test, result positive; Z87.442 Personal history of urinary calculi; I10 Essential (primary) hypertension; E11.9 Type 2 diabetes mellitus without complications; Z79.4 Long term (current) use of insulin; F17.200 Nicotine dependence, unspecified, uncomplicated
CPT/HCPCS: 36415; 74176; 80053; 81003; 81025; 83690; 84702; 85025; 96374; 99282; 99284; J1170; J7040; 81001; 87086

== ENCOUNTER 2021-09-02 08:20 | Outpatient (CLI) | payer MEDICAID ==
[2021-09-02 13:45] LABS: BILIRUBIN,URINE NEGATIVE (NEGATIVE); GLUCOSE, URINE (UA) >=1000 mg/dL (NEGATIVE); KETONES,URINE (UA) NEGATIVE (NEGATIVE); LEUKOCYTE ESTERASE, URINE NEGATIVE (NEGATIVE); NITRITE,URINE NEGATIVE (NEGATIVE); OCCULT BLOOD,URINE NEGATIVE (NEGATIVE); PH,URINE 6.5 PH (5.0-7.5); PROTEIN,URINE NEGATIVE (NEGATIVE); UROBILINOGEN,URINE 0.2 (NORMAL) E.U./dL (NORMAL)
[2021-09-02 13:48] LABS: CLARITY,URINE CLEAR (CLEAR)
[2021-09-02 14:13] LABS: BACTERIA,URINE Rare /HPF (None Seen); RBC,URINE None Seen /HPF (0-5); SQUAMOUS EPITHELIAL CELL,UR RARE Squamous (<= Few); WBC,URINE 0-3 /HPF (0-5)
== END 2021-09-02 23:59 | disposition home or self-care (01) ==
LOC: LAB 08:20
PROVIDERS: ATTEND Obstetrics & Gynecology
DX: Z32.01 Encounter for pregnancy test, result positive (principal)
CPT/HCPCS: 81001; 87086

== ENCOUNTER 2021-09-09 21:49 | Emergency (ER) | payer MEDICAID ==
[2021-09-09 22:11] LABS: BILIRUBIN,URINE NEGATIVE (NEGATIVE); GLUCOSE, URINE (UA) 100 mg/dL (NEGATIVE); KETONES,URINE (UA) NEGATIVE (NEGATIVE); LEUKOCYTE ESTERASE, URINE SMALL (NEGATIVE); NITRITE,URINE NEGATIVE (NEGATIVE); OCCULT BLOOD,URINE NEGATIVE (NEGATIVE); PROTEIN,URINE NEGATIVE (NEGATIVE); UROBILINOGEN,URINE 0.2 (NORMAL) E.U./dL (NORMAL)
[2021-09-09 22:14] LABS: CLARITY,URINE CLEAR (CLEAR)
[2021-09-09 22:21] LABS: BACTERIA,URINE Few /HPF (None Seen); RBC,URINE 0-5 /HPF (0-5); SQUAMOUS EPITHELIAL CELL,UR MOD Squamous (<= Few)
--- NOTE | 2021-09-09 22:31 | ED Physician Documentation ---
PD HPI FEMALE - Stated complaint Stated Complaint: CRAMPS/ - Chief complaint Chief Complaint: Abd Pain - History obtained from History obtained from: Patient - History of Present Illness Timing - onset: How many days ago (3) Timing - details: Waxing and waning Associated symptoms: Abdominal pain (LLQ), Pelvic pain. No: Fever, Back pain, Vaginal pain, Vaginal bleeding, Vaginal discharge, Dysuria, Urinary frequency Contributing factors: (approximately 7 weeks) Recently seen: Emergency Dept - Additional information Additional information: c/o cramping pain, suprapubic and LLQ x 3 days. She was T+R from this ED 08/27 for abdominal pain, w/u included blood tests, UA, CT A/P. No diagnostic results on that work up although she was noted to have (+) HCG and quantitative HCG in 4000s. She refused pelvic US at that time. She says she contacted her provider and an order for outpatient US was entered into the system but that she is waiting to hear back from someone regarding scheduling the ultrasound (she thus has not yet had the pelvic US). She also feels constipated, has not had BM x 3 days Review of Systems Constitutional: denies: Fever, Chills, Sweats Cardiac: reports: Reviewed and negative Respiratory: reports: Reviewed and negative GI: reports: Abdominal Pain, Constipation. denies: Abdominal Swelling, Nausea, Vomiting, Diarrhea : reports: Now EGA (7 weeks). denies: Dysuria, Frequency PD PAST MEDICAL HISTORY - Past Medical History Past Medical History: Yes Cardiovascular: Hypertension, High cholesterol Respiratory: Asthma, COPD, Sleep apnea, CPAP use Neuro: None Endocrine/Autoimmune: Type 2 diabetes GI: GERD NON DESTRUCTIVE TESTING SPECIALIST: None : None HEENT: Chronic vision loss Psych: Depression, Anxiety, Bipolar disorder, Panic attacks, Post traumatic stress disorder, Other Musculoskeletal: Osteoarthritis, Fibromyalgia Derm: Psoriasis - Past Surgical History Past Surgical History: Yes General: EGD Ortho: Carpal Tunnel surgery - Present Medications Home Medications: Ambulatory Orders Medication Instructions Recorded Confirmed Trazodone HCl 100 mg PO QPM 02/07/19 02/15/19 ARIPiprazole [Abilify] 1 tab ORAL DAILY 04/06/19 04/06/19 Acetaminophen [Tylenol] 650 mg PO Q6H PRN 04/06/19 04/06/19 Albuterol Sulfate 1.25 mg IH Q4HR PRN 04/06/19 04/06/19 Albuterol Sulfate [Proair Hfa 2 puffs ORAL Q4HR PRN 04/06/19 04/06/19 Inhaler] Diclofenac Sodium [Voltaren] 2 gm TOP PRN PRN 04/06/19 04/06/19 Escitalopram Oxalate [Lexapro] 5 mg PO DAILY 04/06/19 04/06/19 Insulin Lispro [Humalog Kwikpen 04/06/19 U-200] Insulin Lispro [Humalog Kwikpen SQ 04/06/19 U-200] Liraglutide [Victoza 2-Erick] 1.8 mg SQ DAILY 04/06/19 04/06/19 Metformin HCl 1,000 mg PO BID 04/06/19 04/06/19 Trazodone HCl 2 tab PO QPM 04/06/19 04/06/19 Azithromycin [Zithromax] 250 mg PO DAILY #6 tablet 04/23/19 Hydrocodone/Acetaminophen 1 - 2 each PO Q6H PRN #8 tablet 04/23/19 [Hydrocodon-Acetaminophen 5-325] Azithromycin [Zithromax] 250 mg PO DAILY #4 tablet 12/03/19 Hydrocodone/Acetaminophen 1 - 2 each PO Q6H PRN #14 tablet 04/21/20 [Hydrocodon-Acetaminophen 5-325] Ibuprofen [Motrin] 800 mg PO Q8H PRN #30 tablet 04/21/20 Cyclobenzaprine [Flexeril] 10 mg PO TID PRN #20 tablet 05/05/20 HYDROcod/ACETAM 5/325 [[place] 5/325] 1 - 2 ea PO Q6H PRN #15 tablet 05/05/20 Benzonatate [Tessalon] 100 mg PO TID PRN #20 capsule 09/03/20 Doxycycline Monohydrate 150 mg PO BID #14 capsule 09/03/20 Ipratropium [Atrovent] 0.5 mg INH Q6H #30 neb 09/03/20 dexAMETHasone [Decadron] 4 mg PO DAILY #7 tablet 09/03/20 HYDROcod/ACETAM 5/325 [[place] 5/325] 1 - 2 ea PO Q6H PRN #15 tablet 10/10/20 Ondansetron Odt [Zofran Odt] 4 mg TL Q6H PRN #10 tablet 10/10/20 Tamsulosin [Flomax] 0.4 mg PO DAILY PRN #7 capsule 10/10/20 traMADol [Ultram] 50 - 100 mg PO Q6H PRN #14 tablet 12/21/20 - Allergies Allergies/Adverse Reactions: Allergies Allergy/AdvReac Type Severity Reaction Status Date / Time Penicillins Allergy Hives Verified 09/09/21 22:01 - Social History Does the pt smoke?: Yes Smoking Status: Current every day smoker Does the pt drink ETOH?: No Does the pt have substance abuse?: Yes - Immunizations Immunizations are current?: Yes - POLST Patient has POLST: No PD ED PE NORMAL - Vitals Vital signs reviewed: Yes - General General: Alert and oriented X 3, No acute distress, Well developed/nourished - Cardiac Cardiac: RRR, No murmur - Respiratory Respiratory: No respiratory distress, Clear bilaterally - Abdomen Abdomen: Normal bowel sounds, Soft, Non tender, Non distended - Back Back: No CVA TTP Results - Vitals Vitals: Oxygen O2 Source Room air - Labs Labs: Laboratory Tests 09/09/21 09/09/21 22:00 22:57 HCG, Quant 66893.00 Urine Color YELLOW Urine Clarity CLEAR Urine pH 6.0 Ur Specific [place] 1.010 Urine Protein NEGATIVE Urine Glucose (UA) 100 H Urine Ketones NEGATIVE Urine Occult Blood NEGATIVE Urine Nitrite NEGATIVE Urine Bilirubin NEGATIVE Urine Urobilinogen 0.2 (NORMAL) Ur Leukocyte Esterase SMALL H Urine RBC 0-5 Urine WBC 6-10 H Ur Squamous Epith Cells MOD Squamous H Urine Bacteria Few Ur Microscopic Review INDICATED Urine Culture Comments NOT INDICATED - Rads (name of study) 1st trimester OB US Radiology: Prelim report reviewed, See rad report PD MEDICAL DECISION MAKING - ED course Complexity details: reviewed results, re-evaluated patient, considered differential, d/w patient ED course: US demonstrates viable IUP , 6 w 5 d, with small perigestational hemorrhage. HCG quantitative has increased significantly (reassuringly) since previous draw. Results d/w patient, return precautions given, instructed to follow up with [facility] blind tape cutter Departure - Departure Disposition: 01 Home, Self Care Clinical Impression: Threatened Qualifiers: Weeks of gestation: less than 8 weeks Qualified Code(s): Z3A.01 - Less than 8 weeks gestation of Condition: Good Instructions: ED Miscarriage Poss, ED Care Comments: The ultrasound does not suggest the cause of your pelvic and abdominal discomfort. The ultrasound shows a fetus in your uterus with a gestational age of 6 weeks and 5 days. There is a small amount of blood next to the fetus; this is called a perigestational hemorrhage, but it is small in size and this does not correlate with any specific prognosis. You should follow up with [facility] blind tape cutter, next available appointment. As we discussed, you can try the magnesium citrate for possible constipation. Discharge Date/Time: 09/10/21 02:09
--- NOTE | 2021-09-10 00:51 | Ultrasound Report ---
PROCEDURE: OB First Trimester w/TV INDICATIONS: , SUPRAPUBIC AND LLQ CRAMPING OUTSIDE/PRIOR DATING DATA: Last menstrual period (LMP): Unknown. LMP-based estimated date of delivery (NAYAN): Unknown. First dating scan (date and location): 09/09/2021. Estimated date of delivery (NAYAN) from first dating scan: 04/30/2022. The below data below was generated using the ultrasound NAYAN of 04/30/2022 TECHNIQUE: Real-time scanning was performed of the fetus and maternal pelvic organs, with image documentation. Endovaginal scanning was also performed to better visualize the fetus and maternal ovaries. COMPARISON: FINDINGS: Embryo: 0.75 cm, 6 weeks 5 days. Perigestational hemorrhage measuring 0.5 x 0.2 x 0.4 cm. Heart rate: 123 Measurement variability in dating: +/- 4 weeks by LMP, +/- 7 days by mean sac diameter (use before 6 weeks gestation if crown-rump length not able to be measured), +/- 5 days by crown-rump length (6-12 weeks gestation). Maternal organs: Left adnexal cyst measuring 2.6 x 2.1 x 2.2 cm. There is a presumed left corpus lut eum measuring 1.4 cm. IMPRESSION: Single living intrauterine fetus with a gestational age of 6 weeks 5 days corresponding to an ultraso und NAYAN of 04/30/2022. Small perigestational hemorrhage. Reviewed by: José Miguel San MD on 09/10/2021 12:50 AM PST Approved by: José Miguel San MD on 09/10/2021 12:50 AM PST Station ID: [id number]
[2021-09-10] MEDS ORDERED: MAGNESIUM CITRATE 296 ML BOTTLE PO STA (02:03)
[2021-09-10 02:06] VITALS: BP 139/88
== END 2021-09-10 02:09 | disposition home or self-care (01) ==
LOC: ED 21:49
DX: O20.0 Threatened abortion (principal); Z3A.01 Less than 8 weeks gestation of pregnancy; O24.111 Pre-existing type 2 diabetes mellitus, in pregnancy, first trimester; O10.911 Unspecified pre-existing hypertension complicating pregnancy, first trimester; O99.331 Smoking (tobacco) complicating pregnancy, first trimester; F17.200 Nicotine dependence, unspecified, uncomplicated
CPT/HCPCS: 36415; 76801; 76817; 81001; 84702; 99282; 99284; A9270; 81003; 87086

== ENCOUNTER 2021-09-23 10:57 | Outpatient (CLI) | payer MEDICAID | END 2021-09-23 23:59 | disposition home or self-care (01) | LOC: LAB.N 10:57 | PROVIDERS: ATTEND Family Medicine | DX: R07.0 Pain in throat (principal); Z20.822 Contact with and (suspected) exposure to COVID-19 | CPT/HCPCS: 87070; 87077; 87275; 87276 ==

== ENCOUNTER 2021-09-30 22:31 | Outpatient (CLI) | payer MEDICAID ==
--- NOTE | 2021-10-01 09:35 | Ultrasound Report ---
PROCEDURE: OB First Trimester w/TV INDICATIONS: POSITIVE TEST OUTSIDE/PRIOR DATING DATA: Last menstrual period (LMP): Unknown. First dating scan (date ): September 09, 2021. Estimated date of delivery (NAYAN) from first dating scan: April 30, 2022. TECHNIQUE: Real-time scanning was performed of the fetus and maternal pelvic organs, with image documentation. Endovaginal scanning was also performed to better visualize the fetus and maternal ovaries. COMPARISON: September 09, 2021 FINDINGS: Embryo: [place]-rump length measures 3 cm, compatible with a 9 week, 6 day gestation. Heart rate: 169 bpm Measurement variability in dating: +/- 4 weeks by LMP, +/- 7 days by mean sac diameter (use before 6 weeks gestation if crown-rump length not able to be measured), +/- 5 days by crown-rump length (6-12 weeks gestation). Maternal organs: A hypoechoic lesion within the left ovary, most consistent with a corpus luteum. The cervical length measures approximately 3.1 cm. IMPRESSION: 1. Single intrauterine gestation as detailed above. Reviewed by: Misael Vazquez MD on 10/01/2021 9:33 AM PST Approved by: Misael Vazquez MD on 10/01/2021 9:33 AM PST Station ID: [id number]
== END 2021-09-30 22:32 | disposition home or self-care (01) ==
LOC: DI 22:31
PROVIDERS: ATTEND Obstetrics & Gynecology
DX: Z32.01 Encounter for pregnancy test, result positive (principal)

== ENCOUNTER 2021-10-02 08:00 | Outpatient (CLI) | payer MEDICAID | END 2021-10-02 23:59 | LOC: LAB.N 08:00 | PROVIDERS: ATTEND Physician Assistant | DX: R07.0 Pain in throat (principal); Z20.822 Contact with and (suspected) exposure to COVID-19 ==

== ENCOUNTER 2021-10-02 13:51 | Outpatient (CLI) | payer MEDICAID ==
[2021-10-02 14:10] LABS: BASOPHILS % (AUTO) 0.2 %; EOSINOPHILS # (AUTO) 0.4 10^3/uL (0.0-0.7); HCT - HEMATOCRIT 38.5 % (37.0-47.0); HGB - HEMOGLOBIN 13.3 g/dL (12.0-16.0); LYMPHOCYTES # (AUTO) 1.7 10^3/uL (1.5-3.5); MEAN CORPUSCULAR HGB CONC 34.5 g/dL (32.0-36.0); MEAN CORPUSCULAR VOLUME 92.5 fL (81.0-99.0); MEAN PLATELET VOLUME 9.1 fL (7.9-10.8); MONOCYTES # (AUTO) 0.8 10^3/uL (0.0-1.0); MONOCYTES % (AUTO) 6.6 %; NEUTROPHILS % (AUTO) 75.8 %; PLT - PLATELET COUNT 290 10^3/uL (130-450); RED BLOOD COUNT 4.16 10^6/uL (4.20-5.40); RED CELL DISTRIBUTION WIDTH 12.7 % (12.0-15.0); WHITE BLOOD COUNT 11.8 x10^3/uL (4.8-10.8)
[2021-10-03 11:56] LABS: HIV AG/AB 4TH GEN NON-REACTIVE (NON-REACTIVE)
[2021-10-04 09:31] LABS: HEPATITIS B SURFACE ANTIGEN NON-REACTIVE (NON-REACTIVE)
[2021-10-04 12:41] LABS: HEPATITIS C ANTIBODY NON-REACTIVE (NON-REACTIVE)
== END 2021-10-02 13:52 | disposition home or self-care (01) ==
LOC: LAB 13:51
PROVIDERS: ATTEND Obstetrics & Gynecology
DX: Z36.89 Encounter for other specified antenatal screening (principal)
CPT/HCPCS: 36415; 85025; 86592; 86762; 86787; 86803; 86850; 86900; 86901; 87340; 87389

== ENCOUNTER 2022-01-07 16:21 | Outpatient (CLI) | payer MEDICAID ==
[2022-01-07 17:03] LABS: BASOPHILS % (AUTO) 0.1 %; EOSINOPHILS # (AUTO) 0.2 10^3/uL (0.0-0.7); EOSINOPHILS % (AUTO) 1.5 %; HCT - HEMATOCRIT 35.8 % (37.0-47.0); HGB - HEMOGLOBIN 12.2 g/dL (12.0-16.0); LYMPHOCYTES # (AUTO) 1.6 10^3/uL (1.5-3.5); LYMPHOCYTES % (AUTO) 11.7 %; MEAN CORPUSCULAR HEMOGLOBIN 31.2 pg (27.0-31.0); MEAN CORPUSCULAR HGB CONC 34.1 g/dL (32.0-36.0); MEAN CORPUSCULAR VOLUME 91.6 fL (81.0-99.0); MEAN PLATELET VOLUME 8.9 fL (7.9-10.8); MONOCYTES # (AUTO) 0.8 10^3/uL (0.0-1.0); NEUTROPHILS # (AUTO) 10.9 10^3/uL (1.5-6.6); NEUTROPHILS % (AUTO) 79.7 %; PLT - PLATELET COUNT 298 10^3/uL (130-450); RED BLOOD COUNT 3.91 10^6/uL (4.20-5.40); RED CELL DISTRIBUTION WIDTH 13.8 % (12.0-15.0); WHITE BLOOD COUNT 13.7 x10^3/uL (4.8-10.8)
--- NOTE | 2022-01-07 17:04 | PROVIDER PROGRESS NOTE ---
- HPI Chief Complaint: Hypertension/PIH Current : Vital Signs Temperature 98.2 F 01/07/22 16:38 Heart Rate 92 01/07/22 16:38 Respiratory Rate 17 01/07/22 16:38 Blood Pressure 127/55 L 01/07/22 16:38 O2 Saturation 99 01/07/22 16:38 Temperature 98.2 F 01/07/22 16:38 Heart Rate 92 01/07/22 16:38 Respiratory Rate 17 01/07/22 16:38 Blood Pressure 127/55 L 01/07/22 16:38 O2 Saturation 99 01/07/22 16:38 - Procedures OB Procedure Performed: NST Diagnosis/Indication for NST: Gestational Hypertension Service Date of procedure: 01/07/22 (Read 12/11/21) - Plan Plan: Patient is a 41-year-old G1, P0 at 24 weeks 0 days gestation presented to triage for concern for preeclampsia. She has good movement, no leaking, no vaginal bleeding. Slight frontal headache, but had a tooth pulled today. No abdominal pain or change in vision. She receives care at [facility]. She was initially seen at [facility] women[facility] clinic for confirmation of , then switched to [facility] and is referred to [facility]. She does say she is under some stress with the tooth extraction today in addition to her partner cheating on her and getting a divorce. complications: Type 2 diabetes: Currently with a Dexcom monitor and managed with insulin Past medical history Type 2 diabetes, managed with insulin Asthma Anxiety Depression GERD hyperlipidemia Past surgical history Carpal tunnel release Family history Father: Heart disease, hypertension, stroke, anemia, arthritis, lung cancer, diabetes, hyperlipidemia Mother: Diabetes, arthritis, asthma, weight disorder, diabetes, hypertension, hyperlipidemia Maternal grandmother: Diabetes, hypertension, hyperlipidemia Sister: Diabetes Social history Denies tobacco, alcohol, drugs Medications Albuterol duoneb loratidine aspirin 81 mg flonase advair Lantus Humalog correctional scale Allergies Penicillin: Rash Physical Exam Temp Pulse Resp BP Pulse Ox 98.2 F 92 17 127/55 L 99 01/07/22 16:38 01/07/22 16:38 01/07/22 16:38 01/07/22 16:38 01/07/22 16:38 Constitutional: alert, no acute distress, well hydrated, well developed, well nourished, appropriate dress. Skin: normal turgor, normal color. Head: atraumatic, normocephalic. Cardiovascular: RRR. Respiratory: no respiratory distress. Abdomen: Obese, nondistended, nontender. Spine: normal mobility. Neurologic: normal, sensation intact, motor intact. Psych: affect and mood appropriate, normal interaction, good eye contact. Laboratory Last Values WBC 13.7 x10^3/uL (4.8-10.8) H 01/07/22 16:55 RBC 3.91 10^6/uL (4.20-5.40) L 01/07/22 16:55 Hgb 12.2 g/dL (12.0-16.0) 01/07/22 16:55 Hct 35.8 % (37.0-47.0) L 01/07/22 16:55 MCV 91.6 fL (81.0-99.0) 01/07/22 16:55 MCH 31.2 pg (27.0-31.0) H 01/07/22 16:55 MCHC 34.1 g/dL (32.0-36.0) 01/07/22 16:55 RDW 13.8 % (12.0-15.0) 01/07/22 16:55 Plt Count 298 10^3/uL (130-450) 01/07/22 16:55 MPV 8.9 fL (7.9-10.8) 01/07/22 16:55 Neut # (Auto) 10.9 10^3/uL (1.5-6.6) H 01/07/22 16:55 Lymph # (Auto) 1.6 10^3/uL (1.5-3.5) 01/07/22 16:55 [place] # (Auto) 0.8 10^3/uL (0.0-1.0) 01/07/22 16:55 Eos # (Auto) 0.2 10^3/uL (0.0-0.7) 01/07/22 16:55 Baso # (Auto) 0.0 10^3/uL (0.0-0.1) 01/07/22 16:55 Absolute Nucleated RBC 0.00 x10^3/uL 01/07/22 16:55 Nucleated RBC % 0.0 /100WBC 01/07/22 16:55 Sodium 134 mmol/L (135-145) L 01/07/22 16:55 Potassium 3.5 mmol/L (3.5-5.0) 01/07/22 16:55 Chloride 102 mmol/L (101-111) 01/07/22 16:55 Carbon Dioxide 23 mmol/L (21-32) 01/07/22 16:55 Anion Gap 9.0 (6-13) 01/07/22 16:55 BUN 8 mg/dL (6-20) 01/07/22 16:55 Creatinine 0.5 mg/dL (0.4-1.0) 01/07/22 16:55 Estimated GFR (MDRD) 136 (>89) 01/07/22 16:55 Glucose 90 mg/dL (70-100) 01/07/22 16:55 Calcium 8.5 mg/dL (8.5-10.3) 01/07/22 16:55 Total Bilirubin 0.5 mg/dL (0.2-1.0) 01/07/22 16:55 AST 13 IU/L (10-42) 01/07/22 16:55 ALT 16 IU/L (10-60) 01/07/22 16:55 Alkaline Phosphatase 63 IU/L (42-121) 01/07/22 16:55 Total Protein 6.4 g/dL (6.7-8.2) L 01/07/22 16:55 Albumin 3.1 g/dL (3.2-5.5) L 01/07/22 16:55 Globulin 3.3 g/dL (2.1-4.2) 01/07/22 16:55 Albumin/Globulin Ratio 0.9 (1.0-2.2) L 01/07/22 16:55 Urine Creatinine 80.5 mg/dL 01/07/22 17:30 Ur Total Protein Timed 8 mg/dL 01/07/22 17:30 Protein/Creatinin Ratio 0.1 (<=0.2) 01/07/22 17:30 Assessment and plan 41-year-old at 24 weeks 0 days gestation here with elevated blood pressure 1. Elevated blood pressure: -Notes elevated blood pressures last night into the severe range, but normal in triage today. No severe features. - Labs not concerning for preeclampsia -Follow up with OBGYN provider. Monitor blood pressure at home. Return for severe symptoms 2. Type 2 DM. -Managed with insulin 3. Obesity 4. headache -improved with tylenol 5. 24 weeks gestation - monitoring appropriate for gestational age.
[2022-01-07 17:16] LABS: ALBUMIN 3.1 g/dL (3.2-5.5); ALBUMIN/GLOBULIN RATIO 0.9 (1.0-2.2); BILIRUBIN,TOTAL 0.5 mg/dL (0.2-1.0); CALCIUM 8.5 mg/dL (8.5-10.3); CREATININE 0.5 mg/dL (0.4-1.0); POTASSIUM 3.5 mmol/L (3.5-5.0); TOTAL PROTEIN 6.4 g/dL (6.7-8.2)
[2022-01-07 18:16] VITALS: BP 131/72
[2022-01-07] MEDS ORDERED: ACETAMINOPHEN 500 MG TABLET PO ONE (18:30)
[2022-01-07 18:34] LABS: CREATININE,URINE 80.5 mg/dL; PROTEIN/CREATININE RATIO,URINE 0.1 (<=0.2)
== END 2022-01-07 18:44 | disposition home or self-care (01) ==
LOC: WFO 16:21 → FBP 16:23 → WFO 18:44
PROVIDERS: ATTEND Obstetrics & Gynecology
DX: O13.2 Gestational [pregnancy-induced] hypertension without significant proteinuria, second trimester (principal); R51.9 Headache, unspecified; O24.112 Pre-existing type 2 diabetes mellitus, in pregnancy, second trimester; O99.212 Obesity complicating pregnancy, second trimester; O09.512 Supervision of elderly primigravida, second trimester; K08.409 Partial loss of teeth, unspecified cause, unspecified class; Z3A.24 24 weeks gestation of pregnancy; Z79.4 Long term (current) use of insulin; Z63.5 Disruption of family by separation and divorce
CPT/HCPCS: 36415; 59025; 80053; 82570; 84156; 85025; 99215; A9270

== ENCOUNTER 2022-11-05 09:35 | Outpatient (CLI) | payer MEDICAID ==
[2022-11-05 11:53] LABS: BASOPHILS # (AUTO) 0.1 10^3/uL (0.0-0.1); BASOPHILS % (AUTO) 0.5 %; EOSINOPHILS # (AUTO) 0.4 10^3/uL (0.0-0.7); EOSINOPHILS % (AUTO) 3.4 %; HCT - HEMATOCRIT 41.9 % (37.0-47.0); HGB - HEMOGLOBIN 13.9 g/dL (12.0-16.0); LYMPHOCYTES # (AUTO) 1.7 10^3/uL (1.5-3.5); LYMPHOCYTES % (AUTO) 15.2 %; MEAN CORPUSCULAR HEMOGLOBIN 30.8 pg (27.0-31.0); MEAN CORPUSCULAR HGB CONC 33.2 g/dL (32.0-36.0); MEAN CORPUSCULAR VOLUME 92.9 fL (81.0-99.0); MEAN PLATELET VOLUME 9.4 fL (7.9-10.8); MONOCYTES # (AUTO) 0.7 10^3/uL (0.0-1.0); MONOCYTES % (AUTO) 6.6 %; NEUTROPHILS # (AUTO) 8.2 10^3/uL (1.5-6.6); PLT - PLATELET COUNT 398 10^3/uL (130-450); RED BLOOD COUNT 4.51 10^6/uL (4.20-5.40); RED CELL DISTRIBUTION WIDTH 13.2 % (12.0-15.0)
[2022-11-05 12:13] LABS: ALBUMIN 3.9 g/dL (3.2-5.5); ALBUMIN/GLOBULIN RATIO 1.2 (1.0-2.2); ALKALINE PHOSPHATASE 56 IU/L (42-121); ALT ALANINE AMINOTRANSFERASE 17 IU/L (10-60); AST ASPARTATE AMINOTRANSFERASE 16 IU/L (10-42); BILIRUBIN,TOTAL 0.5 mg/dL (0.2-1.0); BUN - BLOOD UREA NITROGEN 16 mg/dL (6-20); CALCIUM 8.6 mg/dL (8.5-10.3); CARBON DIOXIDE - CO2 26 mmol/L (21-32); CHLORIDE 101 mmol/L (101-111); CHOL/HDL RATIO 3.8 (<4.4); CHOLESTEROL 160 mg/dL; CREATININE 0.7 mg/dL (0.4-1.0); GFR - MDRD 92 (>89); GLUCOSE 115 mg/dL (70-100); HDL CHOLESTEROL 42 mg/dL; LDL CHOLESTEROL,CALCULATED 100 mg/dL; LDL/HDL RATIO 2.4 (<4.4); POTASSIUM 3.8 mmol/L (3.5-5.0); SODIUM 136 mmol/L (135-145); TOTAL PROTEIN 7.1 g/dL (6.7-8.2); TRIGLYCERIDES 89 mg/dL; VLDL CHOLESTEROL 18 mg/dL
[2022-11-05 12:22] LABS: CREATININE,URINE 129.2 mg/dL; MICROALBUM/CREATININE RATIO,UR 3.1 ug/mg (<30.0); MICROALBUMIN,URINE 0.4 mg/dL (0-300.0)
[2022-11-05 12:27] LABS: THYROID STIMULATING HORMONE 2.93 uIU/mL (0.34-5.60)
[2022-11-05 13:09] LABS: ESTIMATED AVERAGE GLUCOSE 111 mg/dL (70-100); HEMOGLOBIN A1c% 5.5 % (4.27-6.07)
== END 2022-11-05 09:36 | disposition home or self-care (01) ==
LOC: LAB.N 09:35
PROVIDERS: ATTEND Family Medicine
DX: E11.65 Type 2 diabetes mellitus with hyperglycemia (principal)
CPT/HCPCS: 36415; 80053; 80061; 82043; 82570; 83036; 83721; 84443; 85025

== ENCOUNTER 2023-07-14 11:57 | Outpatient (CLI) | payer MEDICAID ==
--- NOTE | 2023-07-14 11:55 | SLEEP CARE CONSULTATION ---
Information from patient questionnaire entered by Jennifer Feng. I have reviewed and concur with the information entered by Jennifer Feng. This document represents the service I personally performed and the decisions made by me, Gita Lynn ARNP. History of Present Illness Service Date and Time: 07/14/2023 1120 Previous diagnosis: Mild, Obstructive Sleep Apnea-Hypopnea Syndrome AHI: 11.9 (in 2017) Reason for follow up: annual (LAST SEEN 04/2021) Equipment type: CPAP (POLANCO Dreamstation 2) Equipment obtained from: [facility] (getting supplies, needs new prescription) Mask style: Full face Mask brand: Resmed (AirFit F20, small cushion) Backup mask available: No (needs supplies) Last cushion change: a long time Prior sleep studies: Yes Year and Where: 2016 - [facility] Type of Sleep Study: Home sleep study HPI additional information: ROXANE SANTOS was diagnosed to have mild, AHI 11.9, obstructive sleep apnea- hypopnea syndrome and returns via video telehealth visit today for CPAP therapy annual follow-up. Sleep Study - Results Type of Sleep Study: Home sleep study Prior sleep studies: Yes Year and Where: 2016 - [facility] CPAP Compliance Data - Data Reviewed with Patient Average duration of nightly device use: 7 HRS 3 MINS 26 SECS Compliance rate %: 98.9 (12/14/22-06/11/23; 179/180 days used) Current pressure setting (cmH2O): 14-16 Average residual AHI: 0.4 Central apnea: 0.1 Obstructive apnea: 0.1 Hypopnea: 0.2 Average large leak: 55 secs Subjective Missed days of use due to: reports: travel (for [employer]) Patient concerns: reports: air blowing in eyes, nasal congestion (sick right now), dry mouth, nose, throat. denies: aerophagia, mask discomfort, mask leak noise, condensation in mask/hose, epistaxis Observed to snore while using device: No Current pressure setting perceived as: comfortable (a little low when first puts on) On therapy, patient: reports: sleeping better, awakening more refreshed, being more awake and alert during the day, more rested overall. denies: drowsiness while driving Initial [place] Sleepiness Scale score: 16 (in 2017) Current [place] Sleepiness Scale score: 14 (07/14/23) Allergies and Home Medications Known drug allergies: Yes (penicillins) Drug allergies reviewed: Yes Home medication list reviewed: Yes (no changes) Allergy and home medication list: Allergies Penicillins Allergy (Verified 07/13/23 12:54) Inna Review of Systems Review of systems same as previous: Yes (no changes) Physical Exam Vital signs obtained and entered by: JENNIFER Baxter MA Height: 5 ft 6 in (PER PT) Weight: 260 lb (PER PT) Body Mass Index: 41.9 BMI Classification: Morbidly Obese Impression and Plan 1. Obstructive Sleep Apnea-Hypopnea Syndrome, mild, with good treatment compliance and good apnea control. On CPAP therapy, the patient has better sleep quality and is more rested overall. Patient has significant improvement of their sleep apnea and is satisfied with current CPAP therapy.Patient states she needs to be able to get supplies but needs an updated prescription. We will take care of this today. She also was not able to get the filtered swivel to the front of her mask. She has not had this replaced since she started using this mask. I will add this to her prescription to see if we can get them to replace it. We will follow-up with her next year. Patient's apnea severity and rationale for treatment to reduce apnea, improve sleep quality and reduce cardiovascular and cerebrovascular events was reviewed. I also reviewed the benefit of consistent device use of CPAP for hypertension, diabetes, depression and anxiety. 2. Obesity, unspecified. Currently patients BMI is 41.9. Obesity increases the risk of apnea, CPAP pressure requirements and overall health risks especially cardiovascular and diabetes. Thus patient is advised to lose weight. * Continue auto CPAP pressure at 14-16 cmH2O * Update supply prescription * Notify me if snoring with mask or feeling that the pressure is too much or too little * Attempt to lose weight * Call this office if any problems using CPAP * Return for follow up in 1 year, or sooner if concerns arise Counseling Topics: Spare mask, Weight loss health impact Prescriptions: Device supplies Follow up with Sleep Care in: 1 year Visit Type: Telehealth Video Video Type: Doximity Patient Location: Home Location of Provider: Office Patient agrees and consents to this telehealth visit type: Yes Patient agrees to have their insurance billed: Yes Time Spent with Patient (minutes): 22 Provider Statement: I spent 100% of the Telehealth Video Call with the patient with greater than 50% spent counseling the patient and coordination of care.
== END 2023-07-14 11:58 | disposition home or self-care (01) ==
LOC: SC 11:57
PROVIDERS: ATTEND Nurse Practitioner Family
DX: G47.33 Obstructive sleep apnea (adult) (pediatric) (principal); E66.01 Morbid (severe) obesity due to excess calories; Z68.41 Body mass index [BMI] 40.0-44.9, adult